=== PATIENT | male | born 1960 | race Caucasian/White ===

== ENCOUNTER 2020-02-06 06:59 | Outpatient (REF) | payer BC, OTHER, SELFPAY ==
[2020-02-06 08:41] LABS: Estimated Average Glucose 123 mg/dL; Hemoglobin A1c % 5.9 %
[2020-02-06 09:13] LABS: Ferritin 558 ng/mL (20-250)
== END 2020-02-06 07:00 | disposition home or self-care (01) ==
LOC: HO.LAB 06:59
PROVIDERS: PCP Nurse Practitioner Family; Visit Provider Nurse Practitioner Family
DX: R73.01 Impaired fasting glucose (principal); E83.119 Hemochromatosis, unspecified
CPT/HCPCS: 36415; 82728; 83036

== ENCOUNTER → 2020-03-02 07:38 | Outpatient (BNV) | payer BC, OTHER, SELFPAY | PROVIDERS: PCP Nurse Practitioner Family; Referring Provider Nurse Practitioner Family; Visit Provider Internal Medicine | DX: E83.119 Hemochromatosis, unspecified (principal) | CPT/HCPCS: 99213; 99214; 99441 ==

== ENCOUNTER → 2020-03-11 08:15 | Outpatient (REF) | payer BC, OTHER, SELFPAY ==
--- NOTE | 2020-03-11 08:23 | CA_ITS ---
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 Technically difficult study despite using definity contrast 2. Normal LV systolic function with mild LVH with grade 1 diastolic dysfunction 3. Normal cardiac valvular Doppler 4. Normal RV systolic pressure 5. No pericardial effusion Findings Procedure Information Contrast agent, definity, is being given per protocol without apparent complications. Left Ventricle Normal left ventricular size and systolic function. There is mildly increased left ventricular wall thickness. The visually estimated ejection fraction is between 60-65%. Spectral Doppler is indicative of an impaired relaxation filling pattern. E/E prime ratio is <8, consistent with normal filling pressures. Evidence suggests grade I (mild) diastolic dysfunction. Right Ventricle The right ventricle was not well visualized. Atria The left atrium is likely dilated. Interatrial shunt cannot be excluded. The right atrium was not well visualized. Aortic Valve The aortic valve was not well visualized. There is no aortic valve stenosis. There is no aortic valve regurgitation. Mitral Valve The mitral valve was not well visualized. There is trace mitral valve regurgitation. There is no mitral valve stenosis. Pulmonic Valve The pulmonic valve was not well visualized. Tricuspid Valve The tricuspid valve was not well visualized. There is trace tricuspid valve regurgitation. The right ventricular systolic pressure is normal. Normal right atrial pressure. Great Vessels All visible segments of the aorta are normal in size. The pulmonary artery was not well visualized. Venous The inferior vena cava was not well visualized. Pericardium/Pleural The pericardium was not well visualized. Measurements 2D Linear Measurements IVSd: 1.34 0.6-0.9/0.6-1.0 cm LVIDd: 4.54 3.9-5.3/4.2-5.9 cm LVIDd Index: 1.87 2.4-3.2/2.2-3.1 cm/m2 LVIDs: 2.87 2.0-3.6 cm LVPWd: 1.32 0.7-1.1 cm Ao Root: 3.40 2.1-3.5 cm LA Diam: 4.20 2.7-3.8/3.0-4.0 cm LAIDs Index: 1.73 1.5-2.3 cm/m2 LV Mass: 290.86 67-162/88-224 g LV Mass Index: 119.69 43-95/49-115 g/m2 LVOT Diam: 2.30 3.0+(-)1.3 cm Mitral Valve MV Pk E: 0.69 MV PK A: 0.78 MV Decel Time: 211.00 E/A: 0.90 E'Lateral: 15.70 E'Medial: 6.64 E/E' Med: 10.40 E/E' Lat: 4.40 PHT: 62.00 MVA PHT: 3.55 Decel [place]: 3.27 Aortic Valve AoV Pk Yousuf: 1.58 AoV Mn Yousuf: 1.12 AoV VTI: 0.39 AoV Pk Grad: 10.00 Aov Mn Grad: 6.00 MAXX Cont.VTI: 2.91 LVOT LVOT Pk Yousuf: 1.26 LVOT Mn Yousuf: 0.78 LVOT VTI: 0.27 LVOT Pk Grad: 6.00 LVOT Mn Grad: 3.00 LVOT Diam: 2.30 LVOT Area: 4.15 Diastolic Function MV Pk E: 0.69 MV Pk A: 0.78 E/A: 0.90 E'Medial: 6.64 E/E' Med: 10.40 E' Laterial: 15.70 E/E' Lat: 4.40 Tricuspid Valve TR Pk Yousuf: 1.56 TR Pk Grad: 10.00 RA Press: 3.00 RVSP: 13.00 Great Vessels Aorta Ao Root-2D: 3.40 2.0-3.7 cm Ao Asc: 3.40 2.1-3.4 cm Pulmonary Valve PV Pk Yousuf: 0.98 Peak PV Grad: 4.00 Updated in Other Vendor System with Status of Final Fredi Hart MD electronically signed on 03/11/2020 1:46:08 PM with status of Final
== END ==
LOC: HO.CARD 08:15
PROVIDERS: PCP Nurse Practitioner Family; Visit Provider Nurse Practitioner Family
DX: R22.43 Localized swelling, mass and lump, lower limb, bilateral (principal)
CPT/HCPCS: 93306; Q9957

== ENCOUNTER 2020-05-30 13:49 | Outpatient (REF) | payer BC, OTHER, SELFPAY ==
[2020-05-30 14:06] LABS: MANUAL DIFF FLAG NO
[2020-05-30 14:10] LABS: Basophils Absolute Auto 0.1 X10*3/uL (0.0-0.2); Basophils Percent Auto 0.6 % (0-2); Eosinophils Absolute Auto 0.4 X10*3/uL (0.0-0.4); Hematocrit 41.1 % (42-52); Hemoglobin 13.7 g/dl (14.0-18.0); Imm Gran Abs Auto 0.03 X10*3/uL (0.00-0.03); Imm Gran Pct Auto 0.3 % (0.0-0.4); Lymphocytes Absolute Auto 2.9 X10*3/uL (1.2-4.9); Lymphocytes Percent Auto 28.9 % (20-40); Mean Corpuscular HGB Conc 33.3 g/dl (31.0-36.0); Mean Platelet Volume 10.5 fL (9.4-12.4); Monocytes Percent Auto 9.8 % (2-11); Neutrophils Absolute Auto 5.7 X10*3/uL (2.0-8.3); Neutrophils Percent Auto 56.4 % (45-73); Platelet Count 203 X10*3/uL (160-400); Red Blood Count 4.28 X10*6/uL (4.60-5.80); Red Cell Distribution Width 12.5 % (11.0-16.0); White Blood Count 10.1 X10*3/uL (4.8-10.8)
[2020-05-30 14:37] LABS: Anion Gap 13 (12-20); Blood Urea Nitrogen 19 mg/dL (9-16); Calcium 9.5 mg/dL (8.4-10.2); Carbon Dioxide 29 mmol/L (22-29); Chloride 105 mmol/L (96-108); Estimated Glomerular Filt Rate > 60; Glucose Random 114 mg/dL (60-115); Iron 130 mcg/dL (45-160); Percent Iron Saturation 45 % (15-50); Potassium 4.5 mmol/l (3.3-5.1); Sodium 142 mmol/L (135-145); Total Iron Binding Capacity 289 mcg/dL (228-428); Unsaturated Iron Binding 159 ug/dL
[2020-05-30 14:59] LABS: Ferritin 561 ng/mL (20-250); TSH reflex Free T4 1.46 mIU/mL (0.32-4.0)
== END 2020-05-30 13:50 | disposition home or self-care (01) ==
LOC: HO.LAB 13:49
PROVIDERS: Absent Provider Nurse Practitioner Family; PCP Nurse Practitioner Family; Visit Provider Internal Medicine
DX: R22.43 Localized swelling, mass and lump, lower limb, bilateral (principal); E83.119 Hemochromatosis, unspecified
CPT/HCPCS: 36415; 80048; 82728; 83540; 84443; 85025

== ENCOUNTER 2020-09-03 07:02 | Outpatient (REF) | payer BC, OTHER, SELFPAY ==
[2020-09-03 07:31] LABS: MANUAL DIFF FLAG NO
[2020-09-03 07:43] LABS: Basophils Percent Auto 0.5 % (0-2); Eosinophils Absolute Auto 0.3 X10*3/uL (0.0-0.4); Eosinophils Percent Auto 3.8 % (0-4); Hematocrit 41.2 % (42-52); Hemoglobin 13.6 g/dl (14.0-18.0); Imm Gran Abs Auto 0.02 X10*3/uL (0.00-0.03); Imm Gran Pct Auto 0.2 % (0.0-0.4); Immature Retic Fraction 12.7 % (2.3-13.4); Lymphocytes Absolute Auto 2.2 X10*3/uL (1.2-4.9); Lymphocytes Percent Auto 27.2 % (20-40); Mean Corpuscular Hemoglobin 31.8 pg (27.0-33.0); Mean Corpuscular Volume 96.3 fL (80-98); Mean Platelet Volume 10.6 fL (9.4-12.4); Monocytes Absolute Auto 0.8 X10*3/uL (0.1-1.2); Monocytes Percent Auto 9.3 % (2-11); Neutrophils Absolute Auto 4.8 X10*3/uL (2.0-8.3); Platelet Count 201 X10*3/uL (160-400); Red Blood Count 4.28 X10*6/uL (4.60-5.80); Red Cell Distribution Width 12.9 % (11.0-16.0); Retic HGB Equivalent 36.6 pg (30.0-35.0); Reticulocytes Absolute 0.085 X10*6/uL (0.026-0.095); White Blood Count 8.2 X10*3/uL (4.8-10.8)
[2020-09-03 07:56] LABS: Alanine Aminotransferase 36 U/L (0-40); Albumin Level 4.3 g/dL (3.5-5.0); Alkaline Phosphatase 68 U/L (39-117); Anion Gap 15 (12-20); Aspartate Amino Transferase 34 U/L (5-37); Bilirubin Total 0.6 mg/dL (0.0-1.0); Blood Urea Nitrogen 18 mg/dL (9-16); Calcium 9.4 mg/dL (8.4-10.2); Carbon Dioxide 26 mmol/L (22-29); Chloride 105 mmol/L (96-108); Estimated Glomerular Filt Rate > 60; Glucose Random 134 mg/dL (60-115); Iron 108 mcg/dL (45-160); Percent Iron Saturation 39 % (15-50); Potassium 4.7 mmol/L (3.3-5.1); Sodium 141 mmol/L (135-145); Total Iron Binding Capacity 280 mcg/dL (228-428); Unsaturated Iron Binding 172 ug/dL
[2020-09-05 04:12] LABS: Folate > 20.0 ng/mL (> or = 4.0); Vitamin B12 722 pg/mL (200-900)
[2020-09-05 13:37] LABS: IgA 253 mg/dL (47-310); IgG 880 mg/dL (600-1640); IgM 37 mg/dL (50-300)
[2020-09-05 15:12] LABS: Prot Elec - Albumin 4.2 g/dL (3.8-4.8); Prot Elec - Alpha1 0.3 g/dL (0.2-0.3); Prot Elec - Alpha2 0.9 g/dL (0.5-0.9); Prot Elec - Beta 1 0.4 g/dL (0.4-0.6); Prot Elec - Beta 2 0.4 g/dL (0.2-0.5); Prot Elec - Gamma 0.8 g/dL (0.8-1.7)
[2020-09-06 02:02] LABS: Lyme Abs Screen <0.90 index
== END 2020-09-03 07:03 | disposition home or self-care (01) ==
LOC: HO.LAB 07:02
PROVIDERS: Absent Provider Nurse Practitioner Family; PCP Nurse Practitioner Family; Visit Provider Internal Medicine
DX: E83.119 Hemochromatosis, unspecified (principal); M79.10 Myalgia, unspecified site
CPT/HCPCS: 36415; 80053; 82550; 82607; 82746; 82784; 83540; 84155; 84165; 85025; 85045; 86334; 86617; 86618

== ENCOUNTER 2020-10-31 09:44 | Outpatient (REF) | payer BC, OTHER, SELFPAY ==
[2020-10-31 11:14] LABS: Anion Gap 10 (12-20); Blood Urea Nitrogen 19 mg/dL (9-16); Calcium 9.9 mg/dL (8.4-10.2); Carbon Dioxide 30 mmol/L (22-29); Chloride 105 mmol/L (96-108); Estimated Glomerular Filt Rate > 60; Glucose Random 110 mg/dL (60-115); Potassium 4.5 mmol/L (3.3-5.1); Sodium 140 mmol/L (135-145)
[2020-10-31 11:37] LABS: T4 Thyroxine 6.2 ug/dL (4.5-12.0); Thyroid Stimulating Hormone 1.27 uIU/mL (0.32-4.0)
[2020-10-31 12:12] LABS: Erythrocyte Sedimentation Rate 8 MM/HR (0-15)
[2020-11-01 21:02] LABS: Lyme Abs Screen <0.90 index
[2020-11-04 22:36] LABS: Acetylcholine Receptor Binding <0.30 nmol/L
[2020-11-05 01:02] LABS: Aldolase 5.6 U/L (<=8.1)
[2020-11-05 23:36] LABS: Acetylcholine Recep Modulating <1
== END 2020-10-31 09:45 | disposition home or self-care (01) ==
LOC: HO.LAB 09:44
PROVIDERS: PCP Nurse Practitioner Family; Visit Provider Psychiatry & Neurology Neurology
DX: G72.9 Myopathy, unspecified (principal)
CPT/HCPCS: 36415; 80048; 82085; 82550; 83519; 84436; 84443; 85652; 86617; 86618

== ENCOUNTER 2022-05-31 06:07 | Outpatient (REF) | payer OTHER, SELFPAY ==
--- NOTE | ~2022-05-31 | XR_ITS ---
EXAMINATION: XR CHEST CLINICAL INFORMATION: Shortness of breath COMPARISON: 05/13/2017 TECHNIQUE: 2 views of the chest were obtained. FINDINGS: Lung volumes are low. Mild bronchial wall thickening. No consolidation. No edema or effusion. No pneumothorax. The cardiomediastinal silhouette is within normal limits. No acute osseous abnormality. XR/XR chest 2V IMPRESSION: No consolidation. Bronchial wall thickening can be seen with a small airways process such as asthma or atypical/viral infection.
[2022-05-31 06:14] LABS: MANUAL DIFF FLAG NO
[2022-05-31 07:32] LABS: Basophils Absolute Auto 0.1 X10*3/uL (0.0-0.2); Basophils Percent Auto 0.7 % (0-2); Eosinophils Absolute Auto 0.7 X10*3/uL (0.0-0.4); Eosinophils Percent Auto 6.8 % (0-4); Hematocrit 42.6 % (42.0-52.0); Hemoglobin 14.3 g/dl (14.0-18.0); Imm Gran Abs Auto 0.03 X10*3/uL (0.00-0.03); Imm Gran Pct Auto 0.3 % (0.0-0.4); Lymphocytes Absolute Auto 3.7 X10*3/uL (1.2-4.9); Lymphocytes Percent Auto 35.2 % (20-40); Mean Corpuscular HGB Conc 33.6 g/dl (31.0-36.0); Mean Corpuscular Hemoglobin 32.6 pg (27.0-33.0); Monocytes Absolute Auto 1.1 X10*3/uL (0.1-1.2); Monocytes Percent Auto 10.7 % (2-11); Neutrophils Absolute Auto 4.9 x10*3/uL (2.0-8.3); Neutrophils Percent Auto 46.3 % (45-73); Platelet Count 225 X10*3/uL (160-400); Red Blood Count 4.39 X10*6/uL (4.60-5.80); White Blood Count 10.6 X10*3/uL (4.8-10.8)
[2022-05-31 08:05] LABS: Alanine Aminotransferase 36 U/L (0-40); Albumin Level 4.3 g/dL (3.5-5.0); Alkaline Phosphatase 58 U/L (39-117); Anion Gap 16 (12-20); Aspartate Amino Transferase 31 U/L (5-37); Bilirubin Total 0.5 mg/dL (0.0-1.0); Blood Urea Nitrogen 21 mg/dL (9-16); Calcium 9.5 mg/dL (8.4-10.2); Carbon Dioxide 25 mmol/L (22-29); Chloride 105 mmol/L (96-108); Cholesterol 178 mg/dL; Estimated Glomerular Filt Rate > 60; Glucose Fasting 146 mg/dL (60-99); HDL Cholesterol 60 mg/dL; LDL Cholesterol Calculated 106 mg/dl; Potassium 4.2 mmol/L (3.3-5.1); Sodium 142 mmol/L (135-145); Total Protein 6.9 g/dL (6.5-8.0); Triglycerides 64 mg/dL
[2022-05-31 08:12] LABS: Prostate Specific Antigen Scr 0.26 ng/mL (<0.05-4.0); TSH reflex Free T4 1.55 uIU/mL (0.32-4.0)
[2022-05-31 08:19] LABS: Appearance Urine Clear; Color Urine Dark Yellow; Glucose Urine UA Negative (Negative); Leukocyte Esterase Urine Negative (Negative); Nitrite Urine Negative (Negative); PH 5.5 (5.0-9.0); Specific Gravity - Urine >= 1.030 (1.005-1.025); UMIC TRIGGER UACC YES; Urine Blood Negative (Negative); Urine Ketones Trace mg/dL (Negative); Urine Protein 30 (1+) mg/dL (Neg-Trace)
[2022-05-31 08:22] LABS: Bacteria Urine None Seen (None Seen); Hyaline Casts Urine 0-2 /LPF (0-2); RBC Urine 0-2 /HPF (0-2); Squamous Epithelial Cell Urine 0-2 /HPF (0-2); WBC Urine 0-5 /HPF (0-5)
[2022-05-31 08:29] LABS: Folate 15.3 ng/mL (> or = 4.0); Vitamin B12 697 pg/mL (200-900)
--- NOTE | 2022-05-31 16:40 | PFT_ITS ---
INDICATION: Shortness of breath. SPIROMETRY: FEV1 to FVC 77% with an FEV1 of 2.78 L, which is 84% predicted and FVC of 3.6 L which is 82% predicted. No significant response to bronchodilators noted. Maximum voluntary ventilation 65% predicted. Of note the FEF 25-75 decreased to 74% predicted. LUNG VOLUMES: Total lung capacity 82% predicted with an expiratory residual volume of 10% predicted. DIFFUSION CAPACITY: DLCO of 93% predicted. COMPARISONS: None. INTERPRETATION: No obstructive nor restrictive ventilatory defects identified. No significant response to bronchodilators noted. There is some evidence of small airway disease which could be secondary to underlying asthma or his underlying body habitus. The patient also has a moderate decrease in the maximum voluntary ventilation secondary to likely deconditioning. Lung volumes are normal except for low normal total lung capacity and a significantly decreased expiratory reserve volume secondary to the elevated BMI. Diffusion capacity is within normal limits. Clinical correlation warranted. MD JAIDEN Vela/MARSHA / [id number]
== END 2022-05-31 06:08 | disposition home or self-care (01) ==
LOC: HO.RESP 06:07
PROVIDERS: PCP Nurse Practitioner Family; Visit Provider Nurse Practitioner Family
DX: Z00.00 Encounter for general adult medical examination without abnormal findings (principal); Z12.5 Encounter for screening for malignant neoplasm of prostate; E53.8 Deficiency of other specified B group vitamins; R06.02 Shortness of breath
CPT/HCPCS: 36415; 71046; 80053; 80061; 81001; 82607; 82746; 84153; 84443; 85025; 94060; 94727; 94729

== ENCOUNTER 2023-05-17 06:02 | Outpatient (REF) | payer OTHER, SELFPAY ==
[2023-05-17 11:31] LABS: MANUAL DIFF FLAG NO
[2023-05-17 11:38] LABS: Appearance Urine Clear; Basophils Absolute Auto 0.1 X10*3/uL (0.0-0.2); Basophils Percent Auto 0.5 % (0-2); Color Urine Yellow; Eosinophils Absolute Auto 0.5 X10*3/uL (0.0-0.4); Eosinophils Percent Auto 4.3 % (0-4); Glucose Urine UA Negative (Negative); Hematocrit 42.7 % (42.0-52.0); Hemoglobin 14.3 g/dl (14.0-18.0); Imm Gran Abs Auto 0.03 X10*3/uL (0.00-0.03); Imm Gran Pct Auto 0.3 % (0.0-0.4); Leukocyte Esterase Urine Negative (Negative); Lymphocytes Absolute Auto 3.5 X10*3/uL (1.2-4.9); Mean Corpuscular HGB Conc 33.5 g/dl (31.0-36.0); Mean Corpuscular Volume 98.6 fL (80.0-98.0); Mean Platelet Volume 11.1 fL (9.4-12.4); Monocytes Absolute Auto 0.9 X10*3/uL (0.1-1.2); Monocytes Percent Auto 8.5 % (2-11); Neutrophils Percent Auto 54.4 % (45-73); Nitrite Urine Negative (Negative); PH 5.5 (5.0-9.0); Platelet Count 217 X10*3/uL (160-400); Red Blood Count 4.33 X10*6/uL (4.60-5.80); Specific Gravity - Urine 1.025 (1.005-1.025); Urine Blood Negative (Negative); Urine Ketones Negative (Negative); Urine Protein Negative (Neg-Trace); White Blood Count 10.9 X10*3/uL (4.8-10.8)
[2023-05-17 12:36] LABS: Alanine Aminotransferase 32 U/L (0-40); Alkaline Phosphatase 48 U/L (39-117); Anion Gap 13 (12-20); Aspartate Amino Transferase 27 U/L (5-37); Bilirubin Total 0.4 mg/dL (0.0-1.0); Blood Urea Nitrogen 21 mg/dL (9-16); Calcium 9.3 mg/dL (8.4-10.2); Carbon Dioxide 26 mmol/L (22-29); Chloride 105 mmol/L (96-108); Cholesterol 176 mg/dL (<200); Estimated Glomerular Filt Rate > 60; Glucose Fasting 155 mg/dL (60-99); HDL Cholesterol 57 mg/dL (>40); Iron 123 mcg/dL (45-160); LDL Cholesterol Calculated 104 mg/dL (<100); Percent Iron Saturation 48 % (15-50); Sodium 140 mmol/L (135-145); Total Iron Binding Capacity 256 mcg/dL (228-428); Total Protein 6.9 g/dL (6.5-8.0); Triglycerides 77 mg/dL (<150); Unsaturated Iron Binding 133 ug/dL
[2023-05-17 12:40] LABS: Ferritin 829 ng/mL (20-250); TSH reflex Free T4 1.77 uIU/mL (0.32-4.0)
[2023-05-17 12:47] LABS: Folate 11.8 ng/mL (> or = 4.0); Prostate Specific Antigen Scr 0.29 ng/mL (<0.05-4.0); Vitamin B12 717 pg/mL (200-900)
== END 2023-05-17 06:03 | disposition home or self-care (01) ==
LOC: HO.HMGCLDS 06:02
PROVIDERS: PCP Nurse Practitioner Family; Visit Provider Nurse Practitioner Family
DX: Z00.00 Encounter for general adult medical examination without abnormal findings (principal); R97.20 Elevated prostate specific antigen [PSA]; E53.8 Deficiency of other specified B group vitamins; E83.119 Hemochromatosis, unspecified; Z12.5 Encounter for screening for malignant neoplasm of prostate
CPT/HCPCS: 36415; 80053; 80061; 81003; 82607; 82728; 82746; 83540; 84153; 84443; 85025

== ENCOUNTER 2023-05-20 07:21 | Outpatient (AMB) | payer OTHER, SELFPAY ==
--- NOTE | 2023-05-20 07:29 | A.OFFPC_ITS ---
Vital Signs 05/20/23 07:33 Height 5 ft 8 in Weight 322 lb BMI 49.0 BP 130/90 H Blood Pressure Location Rt brachial Position Sitting Pulse 74 Pulse Source Pulse Oximeter Pulse Oximetry (%) 98 Oxygen Delivery Method Room Air Intake Visit Reasons: PE Intake Note: Patient here for physical exam. no new issues or concerns. Accompanied by: Self / Same As Patient Allergies No Known Allergies Allergy (Verified 05/20/23 07:33) Medication List - Last Reconciled 05/20/23 by MARK Rodriguez atorvastatin 20 mg PO BEDTIME cyanocobalamin (vitamin B-12) 500 mcg PO DAILY lisinopril 2.5 mg PO DAILY magnesium oxide 400 mg PO BID metformin ER 500 mg PO DAILY metoprolol tartrate 12.5 mg (1/2 x 25 mg) PO BID omeprazole 40 mg PO DAILY sildenafil (Viagra) 100 mg PO DAILY PRN Tobacco use date assessed: 05/20/23 Dental Screening Dental Screen Date: 05/20/23 Did you have a dental visit in the last 12 months?: Yes Did you have a dental problem in the last 6 months where you did not have access to dental care?: No Was dental information given to patient?: Patient has dentist HPI PE HPI Details Pt is here for a PE. Labs were already performed. Colon screen is up to date. PSA is up to date. Denies dribbling with urination, weak stream, and frequent nocturia. Pt is a newly diagnosed diabetic. A1C in office today is 6.9. Due for microalbumin, will order. Denies polydipsia and neuropathy, does report some polyuria. Pt denies any signs and symptoms of hypoglycemia and does know how to correct it. Will start metformin ER 500mg. Will send meter and supplies. Will also refer to nurse navigator. Will start lisinopril 2.5mg and atorvastatin 20mg. Pt was seeing hematology due to hemochromatosis, though he has not been seen since [address]. [address] referral. Pt c/o wheezing. He reports that this happens at all times of day. Pt has not tried any inhalers for this. He has PFT testing in May of 2022 which showed no obstructive nor restrictive ventilatory defects identified. No significant response to bronchodilators noted. There is some evidence of small airway disease which could be secondary to underlying asthma or his underlying body habitus. The patient also has a moderate decrease in the maximum voluntary ventilation secondary to likely deconditioning. Lung volumes are normal except for low normal total lung capacity and a significantly decreased expiratory reserve volume secondary to the elevated BMI. Diffusion capacity is within normal limits. Will send ventolin and symbicort. Will also order chest XR. Leukocytosis noted, will repeat CBC. EKG shows new onset afib/a-flutter. Pt reports feeling some intermittent flutters but reports these are infrequent. Will start eliquis. Will also order repeat echo and holter and refer to cardiology. Pt is completely asymptomatic. Pt is already on a beta-doris. Will also order sleep study. Denies CP, dizziness, blurred vision, increase in SOB, or BLOOD PFSH Medical History Arthralgia Diverticulitis large intestine w/o perforation or abscess w/o bleeding Elevated ferritin Hemochromatosis HTN (hypertension) Localized swelling of both lower legs Morbid obesity Myalgia Polyarthralgia Surgical History History of shoulder surgery History of resection of terminal ileum Family History Father Substance use disorder Mother Breast cancer Substance use disorder Brother Substance use disorder Social History Housing: House Are you a primary managed care liaison to a significant other at home: No Alcohol intake: former Patient Tobacco Use Status: Never used Tobacco e-Cigarette/Vaping Use: Never Used Second Hand Smoke Exposure: No service: No Current occupational status: employed Current occupation: Works in [employer] Current occupational exposures/hazards: Yes Cognitive needs: No Hearing needs: No Vision needs: No Questionnaire PHQ-9 Over the last 2 weeks, how often have you been bothered by any of the following problems? 1. Little interest or pleasure in doing things: not at all 2. Feeling down, depressed, or hopeless: not at all 3. Trouble falling or staying asleep, or sleeping too much: not at all 4. Feeling tired or having little energy: nearly every day 5. Poor appetite or overeating: nearly every day 6. Feeling bad about yourself - or that you are a failure or have let yourself or your family down: not at all 7. Trouble concentrating on things, such as reading the newspaper or watching television: not at all 8. Moving or speaking so slowly that other people could have noticed. Or the opposite - being so fidgety or restless that you have been moving around a lot more than usual: not at all 9. Thoughts that you would be better off or of hurting yourself in some way: not at all Total score: 6 Depression Screening Interpretation: Negative Depression Screening Done: Yes 33263 - PHQ-9 Billing: Yes Source: Developed by Drs. Brennon Rizvi, Cristina Albrecht, Qasim Westfall and colleagues, with an educational yolanda from [employer]. Thrive Questionnaire Date Thrive assessed: 05/20/23 I am a: Patient What is your living situation today?: I have a steady place to live Within the past 12 months, did the food you bought not last and you didn't have the money to get more?: Never true Within the past 12 months, did you worry whether your food would run out before you got money to buy more?: Never true Do you have trouble paying for medicines?: No Do you have trouble getting transportation to medical appointments?: No Do you have trouble paying your heating and electricity bill?: No Do you have trouble taking care of your child, family member or friend?: No Do you have trouble with day-to-day activities such as bathing, preparing meals, shopping, managing finances, etc.?: No Are you currently unemployed and looking for a job?: No Are you interested in more education?: No AUDIT C Alcohol Use Questionnaire (AUDIT-C) 1. How often do you have a drink containing alcohol?: Never 3. How often do you have six or more drinks on one occasion?: Never Total Score: 0 Score Reviewed/Action Taken: No ZEHRA-7 AMB Questionnaire ZEHRA-7 Date ZEHRA - 7 assessed: 05/20/23 Feeling nervous, anxious, or on edge: 0 = Not at all Not being able to stop or control worryin = Not at all Worrying too much about different things: 0 = Not at all Trouble relaxin = Not at all Being so restless that it is hard to sit still: 0 = Not at all Becoming easily annoyed or irritable: 1 = Several days Feeling afraid as if something awful might happen: 0 = Not at all Total ZEHRA-7 score (0-4 normal; 5-9 mild; 10-14 moderate; 15-21 severe): 1 Source: Developed by Drs. Brennon Rizvi, Cristina Albrecht, Qasim Westfall and colleagues, with an educational yolanda from [employer]. ZEHRA-7 Assessment Billing ZEHRA-7 Assessment Tool: ZEHRA-7 Assessment 82411 Review of Systems Const Denies chills and Denies fever(s) Eyes Denies blurry vision ENT Denies vertigo, Denies dizziness and Denies sore throat Card Denies chest pain at rest, Denies chest pain with activity, Denies diaphoresis, Denies dyspnea and Denies dyspnea on exertion Resp Denies cough, Denies dyspnea, Denies dyspnea on exertion and Denies wheezing GI Denies abdominal pain, Denies melena, Denies hematochezia, Denies constipation, Denies diarrhea and Denies loose stools Denies hematuria Musc Denies numbness and Denies tingling Skin/Breast Denies lesions Neuro Denies vertigo, Denies dizziness, Denies numbness and Denies tingling Psych Denies anxiety, Denies depression, Denies homicidal ideation, Denies suicidal ideation and Denies other (substance abuse) Aller/Immun Denies wheezing Physical exam (Primary Care) Vital Signs: Last Vital Signs Pulse 74 05/20/23 07:33 BP 130/90 H 05/20/23 07:33 Pulse Ox 98 05/20/23 07:33 Oxygen Delivery Method Room Air 05/20/23 07:33 BMI result Body Mass Index 49.0 Tobacco/Smoking Status: Tobacco use Status Tobacco use date assessed 05/20/23 05/20/23 07:36 Patient Tobacco Use Status Never used Tobacco 05/20/23 07:29 e-Cigarette/Vaping Use Never Used 05/20/23 07:29 Depression Screening Interpretation: Negative Thrive Assessment: Date of Thrive Assessment Date Thrive assessed 05/15/22 05/20/23 07:29 Const General: cooperative Nutritional Appearance: obese morbidly obese Orientation/consciousness: patient oriented x3 [facility] Head: Yes normal to inspection, Yes normocephalic and Yes atraumatic Ears: TM's normal bilaterally Eyes General: appearance normal, both eyes and all related structures Alignment and Position: alignment normal and position normal Neck Neck: Yes normal visual inspection and Yes no lymphadenopathy Thyroid: Thyroid normal Resp Other: lungs with faint wheezing throughout Effort & Inspection: normal respiratory effort Cardio Other: difficult to auscultate due to body habitus Rhythm: abnormal rhythm irregularly irregular GI Palpation (GI): Soft to palpation and nontender Auscultation: normal bowel sounds Male General Exam: Yes normal external exam Penis: normal penis Scrotum: scrotum normal, testes descended bilaterally and no inguinal hernias Testes: no testicular mass Skin Rashes: no rashes Neuro General: patient oriented x3, moves all extremities, no focal motor deficits and deep tendon reflexes 2+ bilaterally Romberg Test: Negative Extrem Other: right foot + sensation with use of monofilament, slight lack of sensation to plantar aspect of left foot, feet intact Right lower extremity: edema Details: pitting and 1+ Left lower extremity: edema Details: pitting and 1+ Psych Appearance: grossly normal Mental Status: mental status grossly normal Speech and movement: Normal speech and movement present Affect: normal affect Attitude: cooperative Thought process: Normal thought process present Thought content: Normal thought content present Insight: Good insight present (Psych) Judgement: Good judgement present (Psych) Results AMB Hemoglobin A1c AMB Hemoglobin A1c 6.9 % Last Edit by RAY Ga on 05/20/23 07 :55 Results Reviewed Results Reviewed: Laboratory Last Values Hgb A1c (Clinic) 6.9 % (4.0-6.0) H 05/20/23 07:54 Assessment and Plan Assessment & Plan (1) Diabetes: Code(s): E11.9 - Type 2 diabetes mellitus without complications Plan: Microalbumin ordered, starting metformin, lisinopril, and atorvastatin, sending meter and supplies (2) Leukocytosis: Code(s): D72.829 - Elevated white blood cell count, unspecified Plan: CBC ordered (3) Hemochromatosis: Code(s): E83.119 - Hemochromatosis, unspecified Qualifiers: Hemochromatosis type: unspecified Qualified Code(s): E83.119 - Hemochromatosis, unspecified Plan: Referred back to hematology, elevated ferritin (4) Wheezing: Code(s): R06.2 - Wheezing Plan: Chest XR ordered, ventolin and symbicort sent (5) New onset a-fib: Code(s): I48.91 - Unspecified atrial fibrillation Plan: Starting eliquis, echo ordered, referred to cardiology, sleep study ordered (6) Morbid obesity: Code(s): E66.01 - Morbid (severe) obesity due to excess calories (7) Encounter for routine adult physical exam with abnormal findings: Code(s): Z00.01 - Encounter for general adult medical examination with abnormal findings (8) Atrial flutter: Code(s): I48.92 - Unspecified atrial flutter Plan The patient agreed to the use of a medical doctor md/medical director for this encounter. Scribed for JAVIER Rey by Leilani Jha medical doctor md/medical director, on 05/20/2023 at 07:40 EST. Orders: Orders Microalbumin, Random (w Creat) Today E11.9 - Type 2 diabetes mellitus without complications XR chest 2V Today R06.2 - Wheezing AMB Hemoglobin A1c Today E11.9 - Type 2 diabetes mellitus without complications Complete Blood Count Auto Diff Today D72.829 - Elevated white blood cell count, unspecified CA echo transthoracic complete Today I48.91 - Unspecified atrial fibrillation ECG 3 day holter monitor Today I48.91 - Unspecified atrial fibrillation, I48.92 - Unspecified atrial flutter Referrals Hematology & Oncology Referral E83.119 - Hemochromatosis, unspecified Sleep Medicine Referral E66.01 - Morbid (severe) obesity due to excess calories, I48.91 - Unspecified atrial fibrillation Nurse Navigator Referral E11.9 - Type 2 diabetes mellitus without complications Cardiology Referral I48.91 - Unspecified atrial fibrillation, I48.92 - Unspecif ied atrial flutter Medications: New lisinopril 2.5 mg PO DAILY 90 tabs 0RF atorvastatin 20 mg PO BEDTIME 90 tabs 0RF metformin ER 500 mg PO DAILY 90 tabs 3RF apixaban (Eliquis) 5 mg PO BID 30 days 60 tabs 3RF budesonide-formoterol 80-4.5 mcg/actuation (Symbicort) rinse mouth out after each use 1 puff inhalation BID 10.2 grams 1RF albuterol sulfate 90 mcg/actuation (Ventolin HFA) 2 puffs inhalation Q6H PRN 8.5 grams 2RF shortness of breath or wheezing Coding Level of Care Code Est Pt Prev Care 40-64y(18828) Diagnoses Diabetes E11.9 Leukocytosis D72.829 Hemochromatosis, unspecified hemochromatosis type E83.119 Hemochromatosis type: unspecified Wheezing R06.2 New onset a-fib I48.91 Morbid obesity E66.01 Encounter for routine adult physical exam with abnormal findings Z00.01 Atrial flutter I48.92 Additional Codes ZEHRA-7 Assessment Billing - ZEHRA-7 Assessment Tool: ZEHRA-7 Assessment [id number] ([id number])
[2023-05-20 07:33] VITALS: BP 130/90; PULSE 74; O2SAT 98; BMI 49.0
== END 2023-05-20 09:02 | disposition home or self-care (01) ==
PROVIDERS: Visit Provider Nurse Practitioner Family
DX: Z00.01 Encounter for general adult medical examination with abnormal findings (principal); E11.9 Type 2 diabetes mellitus without complications; I48.91 Unspecified atrial fibrillation; E66.01 Morbid (severe) obesity due to excess calories; I48.92 Unspecified atrial flutter; Z68.42 Body mass index [BMI] 45.0-49.9, adult; R06.2 Wheezing; D72.829 Elevated white blood cell count, unspecified; E83.119 Hemochromatosis, unspecified
CPT/HCPCS: 83036; 99214; 99396

== ENCOUNTER 2023-05-20 08:24 | Outpatient (REF) | payer OTHER, SELFPAY ==
--- NOTE | ~2023-05-20 | XR_ITS ---
EXAMINATION: XR CHEST CLINICAL INFORMATION: Wheezing COMPARISON: Chest radiograph from 05/31/2022 TECHNIQUE: 2 views of the chest were obtained. FINDINGS: Bilateral low lung volumes. Stable elevation the right hemidiaphragm. Bronchial thickening which can be seen in setting of infectious/inflammatory etiology. Right basilar atelectasis. No pneumothorax. Trachea is midline. Cardiac mediastinal silhouette is not enlarged. No large pleural effusion. Degenerative changes of the thoracolumbar spine. Soft tissues are unremarkable. XR/XR chest 2V IMPRESSION: 1. Bilateral low lung volumes. 2. Stable elevation the right hemidiaphragm. 3. Bronchial thickening which can be seen in setting of infectious/inflammatory etiology. 4. Right basilar atelectasis.
[2023-05-20 10:55] LABS: MANUAL DIFF FLAG NO
[2023-05-20 11:09] LABS: Basophils Absolute Auto 0.1 X10*3/uL (0.0-0.2); Basophils Percent Auto 0.7 % (0-2); Eosinophils Absolute Auto 0.3 X10*3/uL (0.0-0.4); Eosinophils Percent Auto 3.7 % (0-4); Hematocrit 43.6 % (42.0-52.0); Hemoglobin 14.5 g/dl (14.0-18.0); Imm Gran Abs Auto 0.04 X10*3/uL (0.00-0.03); Imm Gran Pct Auto 0.4 % (0.0-0.4); Lymphocytes Absolute Auto 2.8 X10*3/uL (1.2-4.9); Lymphocytes Percent Auto 30.6 % (20-40); Mean Corpuscular HGB Conc 33.3 g/dl (31.0-36.0); Mean Corpuscular Hemoglobin 32.6 pg (27.0-33.0); Monocytes Absolute Auto 0.8 X10*3/uL (0.1-1.2); Monocytes Percent Auto 8.3 % (2-11); Neutrophils Absolute Auto 5.1 x10*3/uL (2.0-8.3); Neutrophils Percent Auto 56.3 % (45-73); Platelet Count 224 X10*3/uL (160-400); Red Blood Count 4.45 X10*6/uL (4.60-5.80)
[2023-05-20 11:32] LABS: Creatinine Urine 186.64 mg/dL; Microalbum/Creatinine Ratio Ur 34.2 ug/mg cr (<30)
== END 2023-05-20 08:25 | disposition home or self-care (01) ==
LOC: HO.HMGCX 08:24
PROVIDERS: PCP Nurse Practitioner Family; Visit Provider Nurse Practitioner Family
DX: R06.2 Wheezing (principal); D72.829 Elevated white blood cell count, unspecified; E11.9 Type 2 diabetes mellitus without complications
CPT/HCPCS: 36415; 71046; 82043; 82570; 85025

== ENCOUNTER 2023-06-04 13:36 | Inpatient (IN) | payer OTHER, SELFPAY ==
[2023-06-04] VITALS (9 sets, daily range): BP systolic 109–135; BP diastolic 66–94; PULSE 85–145; RESP 13–20; TEMP 36.4–36.8; O2SAT 94–96; BMI 47.1
--- NOTE | ~2023-06-04 | XR_ITS ---
EXAMINATION: XR CHEST CLINICAL INFORMATION: No onset atrial fibrillation, dyspnea COMPARISON: None available. TECHNIQUE: 2 views of the chest were obtained. FINDINGS: The lungs are well-expanded and clear. Heart size and pulmonary vascularity is normal. No gross bony abnormality seen. XR/XR chest 2V IMPRESSION: Unremarkable chest exam.
--- NOTE | 2023-06-04 13:38 | ECG_ITS ---
Test Reason : AFIB Blood Pressure : / mmHG Vent. Rate : 144 BPM Atrial Rate : 288 BPM P-R Int : 000 ms QRS Dur : 090 ms QT Int : 352 ms P-R-T Axes : 219 -06 221 degrees QTc Int : 545 ms Atrial flutter with 2:1 A-V conduction Nonspecific ST and T wave abnormality Abnormal ECG When compared with ECG of 21-NOV-2016 19:19, Atrial flutter has replaced Sinus rhythm Borderline criteria for Lateral infarct are no longer Present Criteria for Inferior infarct are no longer Present Nonspecific T wave abnormality now evident in Inferior leads Referred By: Generic ED Physician Electronically Signed By:ELIE PEREZ MD
--- NOTE | 2023-06-04 14:12 | ED.ARRPALP ---
HPI - Arrhythmia/Palpitations General Chief Complaint: Arrhythmia/Palpitations Stated Complaint: new a Fib Time Seen by Provider: 06/04/23 13:55 Source: patient Mode of arrival: wheelchair Limitations: no limitations History of Present Illness HPI narrative: 63-year-old male with history of diabetes mellitus, hypertension, hemochromatosis, newly diagnosed atrial flutter by PCP on 05/20/2023 who was at the hospital to get an echocardiogram when he was noted to be in atrial flutter with a rapid ventricular response of 150 therefore he was sent to the emergency department for evaluation. The patient had a routine follow-up visit with his PCP Dr. Yair Prajapati on 05/20/2023. The patient states that he had no symptoms and he was diagnosed with atrial flutter on EKG done in the office. Patient was started on Eliquis and was set up for an outpatient workup to include an echocardiogram today. The patient has had no significant symptoms. He states that he does have dyspnea on exertion but this is not new. He denied chest pain, lightheadedness, dizziness, palpitations, shortness of breath, nausea, vomiting, diaphoresis. He denied recent illness such as fever, chills, rhinorrhea, sore throat or cough. I did review the patient's blood work on 05/17/2023 which was prior to his office visit. Patient did have a high ferritin but he does have hematoma cytosis. His TSH was normal. Related Data Home Medications Medication Instructions Recorded Confirmed magnesium oxide 400 mg (241.3 mg 400 mg PO BID 02/06/20 06/04/23 magnesium) tablet sildenafil 100 mg tablet (Viagra) 100 mg PO DAILY PRN Sexual Activity 02/06/20 06/04/23 cyanocobalamin (vitamin B-12) 500 500 mcg PO DAILY 09/05/20 06/04/23 mcg tablet Previous Rx's Medication Instructions Recorded omeprazole 40 mg capsule,delayed 40 mg PO DAILY #90 caps 07/12/22 release metoprolol tartrate 25 mg tablet 12.5 mg (1/2 x 25 mg) PO BID #90 04/05/23 tabs FreeStyle Lite Meter #1 ea 05/20/23 (blood-glucose meter) FreeStyle Lite Strips (blood sugar #200 ea 05/20/23 diagnostic) albuterol sulfate 90 mcg/actuation 2 puff inhalation Q6H PRN 05/20/23 aerosol inhaler (Ventolin HFA) shortness of breath or wheezing #8.5 grams apixaban 5 mg tablet (Eliquis) 5 mg PO BID 30 days #60 tabs 05/20/23 atorvastatin 20 mg tablet 20 mg PO BEDTIME #90 tabs 05/20/23 doxycycline hyclate 100 mg tablet 100 mg PO BID 10 days #20 tabs 05/20/23 lancets 28 gauge (FreeStyle #200 ea 05/20/23 Lancets) lisinopril 2.5 mg tablet 2.5 mg PO DAILY #90 tabs 05/20/23 metformin 500 mg tablet,extended 500 mg PO DAILY #90 tabs 05/20/23 release 24 hr fluticasone furoate 100 1 inh inhalation DAILY #1 ea 05/29/23 mcg-vilanterol 25 mcg/dose inhalation powder (Breo Ellipta) Allergies Allergy/AdvReac Type Severity Reaction Status Date / Time No Known Allergies Allergy Verified 05/20/23 07:33 Review of Systems Review of Systems: Yes all other systems are reviewed and are negative [facility] Past Medical History [facility] Narrative: Social history: He denies tobacco, alcohol and drug use. Medical History Arthralgia Diverticulitis large intestine w/o perforation or abscess w/o bleeding Elevated ferritin Hemochromatosis HTN (hypertension) Localized swelling of both lower legs Morbid obesity Myalgia Polyarthralgia Surgical History History of shoulder surgery History of resection of terminal ileum Family History Family History Father Substance use disorder Mother Breast cancer Substance use disorder Brother Substance use disorder Social History Social History Housing: House Are you a primary daycare director to a significant other at home: No Alcohol intake: former Patient Tobacco Use Status: Never used Tobacco Smoked in Last 30 Days: No e-Cigarette/Vaping Use: Never Used Second Hand Smoke Exposure: No Use of substances other than those prescribed or required for medical reasons: No Advance Directives: Yes Advance Directives Information Provided: Yes Advance Directives on File: No service: No Current occupational status: employed Current occupation: Works in [employer] Current occupational exposures/hazards: Yes Cognitive needs: No Hearing needs: No Vision needs: No Physical Exam Vital Signs: Vital Signs: Last Vital Signs Temp 98.2 F 06/04/23 14:00 Pulse 143 H 06/04/23 15:27 Resp 15 06/04/23 15:27 BP 135/94 H 06/04/23 15:27 Pulse Ox 95 06/04/23 15:27 O2 Del Method Room Air 06/04/23 15:27 BMI result Body Mass Index 47.1 Vital signs were normal except for an elevated heart rate of 145 Exam: General: Awake, alert in no distress, elevated BMI 47.1 Head: Normocephalic, atraumatic EENT: PERRL, Lids normal, sclera normal, conjunctiva normal, nose normal , ears normal, throat without erythema or exudates Neck: Supple, no adenopathy Lung: breath sounds symmetric, no wheezing, rales or rhonchi Chest: symmetric movement, nontender Heart: Tachycardia with regular rate, normal S1, S2 no murmurs or rubs Abdomen: soft, non-tender, nondistended, normal bowel sounds Back: no vertebral tenderness, no CVAT Extremities: no deformities, moves all extremities symmetrically Neuro: Awake, alert, oriented, normal speech, cranial nerves intact, moves all extremities symmetrically Psych: Pleasant, cooperative Medications Administered Generic Name Dose Route Start Last Admin Trade Name Freq PRN Reason Stop Dose Admin Sodium Chloride 1,000 mls @ 125 mls/hr 06/04/23 14:06 06/04/23 15:31 Ns IV 06/04/23 22:05 125 mls/hr .Q8H STA Administration Discontinued Medications Generic Name Dose Route Start Last Admin Trade Name Freq PRN Reason Stop Dose Admin Diltiazem HCl 25 mg 06/04/23 14:06 06/04/23 15:28 Diltiazem Hcl 50 Mg/10 Ml Vial IVPUSH 06/04/23 14:07 25 mg STAT STA Administration Medical Decision Making Medical Decision Making MDM Narrative: 63-year-old male with history of diabetes mellitus, hypertension, hemochromatosis, newly diagnosed atrial flutter by PCP on 05/20/2023 who was at the hospital to get an echocardiogram when he was noted to be in atrial flutter with a rapid ventricular response of 150 therefore he was sent to the emergency department for evaluation. The patient states that he did not start anticoagulation since Eliquis was not covered by his insurance. The patient was asymptomatic. Exam did reveal rapid heart, regular heart rate otherwise was unremarkable Differential diagnosis includes was not limited to atrial fibrillation, atrial flutter, myocardial infarction, myocardial ischemia, hyperthyroidism, drug use disorder, anemia, electrolyte abnormality Following evaluation was ordered: CBC, CMP, BNP, ethanol level, drug screen urine, PT/INR, PTT, chest x-ray two view Patient was treated with the following: IV insert, monitor and storage bin tender, O2 saturation monitor, diltiazem 25 mg IV, normal saline 125 cc/hours 1606: My interpretation patient's laboratory evaluation as follows: CBC was normal. CMP was normal except for an elevated glucose of 149. Patient's high sensitive troponin I was detectable but not elevated at 7.6-I will repeat a 3 troponin. COVID-19 was negative. BNP was just above the upper limit of normal at 101. The patient's rate has been varying 100-130 beats per minute therefore I ordered diltiazem 10 mg IV and a 500 cc normal saline bolus. I did discuss admission with the covering hospitalist, nurse practitioner Juhi Yap and the patient will be admitted for further rate control and diagnostic workup. Lab Data 06/04/23 14:21 06/04/23 14:21 Labs: Lab Results 06/04/23 Range/Units 14:21 WBC 10.8 (4.8-10.8) X10*3/uL RBC 4.30 L (4.60-5.80) X10*6/uL Hgb 14.0 (14.0-18.0) g/dl Hct 41.1 L (42.0-52.0) % MCV 95.6 (80.0-98.0) fL MCH 32.6 (27.0-33.0) pg MCHC 34.1 (31.0-36.0) g/dl RDW 12.7 (11.0-16.0) % Plt Count 206 (160-400) X10*3/uL MPV 10.2 (9.4-12.4) fL Immature Gran % (Auto) 0.5 H (0.0-0.4) % Neut % (Auto) 63.1 (45-73) % Lymph % (Auto) 26.1 (20-40) % Banner % (Auto) 7.3 (2-11) % Eos % (Auto) 2.4 (0-4) % Baso % (Auto) 0.6 (0-2) % Lymph # (Auto) 2.8 (1.2-4.9) X10*3/uL Banner # (Auto) 0.8 (0.1-1.2) X10*3/uL Eos # (Auto) 0.3 (0.0-0.4) X10*3/uL Baso # (Auto) 0.1 (0.0-0.2) X10*3/uL Abs Immat Gran (auto) 0.05 H (0.00-0.03) X10*3/uL Absolute Neuts (auto) 6.8 (2.0-8.3) x10*3/uL Absolute Nucleated RBC 0.000 (0.0-0.012) X10*3/uL Nucleated RBC % (auto) 0.0 (0.0-0.2) /100WBC PT 12.2 (11.1-13.3) SEC INR 1.0 (0.9-1.1) APTT 29.6 (26.0-36.8) SEC Sodium 143 (135-145) mmol/L Potassium 4.0 (3.3-5.1) mmol/L Chloride 107 (96-108) mmol/L Carbon Dioxide 28 (22-29) mmol/L Anion Gap 12 (12-20) BUN 17 H (9-16) mg/dL Creatinine 0.97 (0.5-1.4) mg/dL Estim Creat Clear Calc 107.2 Estimated GFR > 60 Random Glucose 149 H (60-115) mg/dL Calcium 9.7 (8.4-10.2) mg/dL Total Bilirubin 0.4 (0.0-1.0) mg/dL AST 28 (5-37) U/L ALT 30 (0-40) U/L Alkaline Phosphatase 53 (39-117) U/L Troponin I High Sens 7.6 (<3.5-35.0) ng/L B-Natriuretic Peptide 101 H (<100) pg/mL Total Protein 7.1 (6.5-8.0) g/dL Albumin 4.1 (3.5-5.0) g/dL Ethyl Alcohol < 10 mg/dL COVID-19 (GERALD) Negative (Negative) COVID-19 Clin Com See Note Independent Interpretation I performed an independent interpretation of an: EKG and Plain X-Ray Interpretation: My interpretation patient's 12 EKG done at 13:50 hours is as follows: Atrial flutter with a 2-1 AV block with a rate of 144, normal QRS interval, prolonged QTC interval 545 milliseconds, no ST segment elevation, no ST segment depression, no T-wave abnormalities. My interpretation patient's one-view chest x-ray is as follows: No acute disease Radiology Impression Discussion of test interpretation with radiology: I have reviewed the radiologist's reading. Radiologist Impression: XR chest 2V IMPRESSION: Unremarkable chest exam. Dictated By: Logan Burnett MD Critical Care Time Critical Care Time Critical Care Time: Yes Total Critical Care Time: 45 Attestation: Critical Care: The patient was critically ill with a high probability of imminent or life threatening deterioration. I spent greater than 30 minutes of discontinuous time evaluating the patient,delivering critical care at the bedside, discussing and evaluating pertinent data with consultants. Critical care time does not include time spent performing separately billable procedures or teaching. Total time spent performing critical care was 45 minutes. Discharge Plan Discharge Patient Disposition: Admitted As Inpatient Prescriptions: No Action omeprazole 40 mg capsule,delayed release(DR/EC) 40 mg PO DAILY Qty: 90 3RF metoprolol tartrate 25 mg tablet 12.5 mg PO BID Qty: 90 1RF (DME) FreeStyle Lite Strips Strip See Rx Instructions .Route Qty: 200 1RF Rx Instructions: Test blood sugar twice a day (DME) blood-glucose meter [FreeStyle Lite Meter] Kit See Rx Instructions .Route Qty: 1 0RF Rx Instructions: As directed (DME) lancets [FreeStyle Lancets] 28 gauge misc See Rx Instructions .Route Qty: 200 1RF Rx Instructions: Test blood sugar twice a day fluticasone furoate-vilanterol [Breo Ellipta] 100-25 mcg/dose blister with device 1 inh inhalation DAILY Qty: 1 0RF cyanocobalamin (vitamin B-12) 500 mcg Tablet 500 mcg PO DAILY magnesium oxide 400 mg (241.3 mg magnesium) tablet 400 mg PO BID Rx Instructions: After meals sildenafil [Viagra] 100 mg tablet 100 mg PO DAILY PRN (Reason: Sexual Activity) Rx Instructions: Take 1/2 tablet once a day, administer 30 minutes to 4 hours before activity atorvastatin 20 mg tablet 20 mg PO BEDTIME Qty: 90 0RF lisinopril 2.5 mg tablet 2.5 mg PO DAILY Qty: 90 0RF metformin 500 mg tablet extended release 24 hr 500 mg PO DAILY Qty: 90 3RF albuterol sulfate [Ventolin HFA] 90 mcg/actuation HFA aerosol inhaler 2 puff inhalation Q6H PRN (Reason: shortness of breath or wheezing) Qty: 8.5 2RF Eliquis 5 mg tablet 5 mg PO BID 30 Days Qty: 60 3RF doxycycline hyclate 100 mg tablet 100 mg PO BID 10 Days Qty: 20 0RF
[2023-06-04 14:29] LABS: MANUAL DIFF FLAG NO
[2023-06-04 14:31] LABS: Basophils Absolute Auto 0.1 X10*3/uL (0.0-0.2); Basophils Percent Auto 0.6 % (0-2); Eosinophils Absolute Auto 0.3 X10*3/uL (0.0-0.4); Eosinophils Percent Auto 2.4 % (0-4); Hematocrit 41.1 % (42.0-52.0); Imm Gran Abs Auto 0.05 X10*3/uL (0.00-0.03); Imm Gran Pct Auto 0.5 % (0.0-0.4); Lymphocytes Absolute Auto 2.8 X10*3/uL (1.2-4.9); Lymphocytes Percent Auto 26.1 % (20-40); Mean Corpuscular HGB Conc 34.1 g/dl (31.0-36.0); Mean Corpuscular Hemoglobin 32.6 pg (27.0-33.0); Mean Corpuscular Volume 95.6 fL (80.0-98.0); Mean Platelet Volume 10.2 fL (9.4-12.4); Monocytes Absolute Auto 0.8 X10*3/uL (0.1-1.2); Monocytes Percent Auto 7.3 % (2-11); Neutrophils Absolute Auto 6.8 x10*3/uL (2.0-8.3); Neutrophils Percent Auto 63.1 % (45-73); Platelet Count 206 X10*3/uL (160-400); Red Cell Distribution Width 12.7 % (11.0-16.0); White Blood Count 10.8 X10*3/uL (4.8-10.8)
[2023-06-04 14:38] LABS: Prothrombin Time 12.2 SEC (11.1-13.3)
[2023-06-04 14:41] LABS: Partial Thromboplastin Time 29.6 SEC (26.0-36.8)
[2023-06-04 14:46] LABS: COVID-19 Test Negative (Negative); IDNOW Serial# 152EDE1D
[2023-06-04 14:48] LABS: Alanine Aminotransferase 30 U/L (0-40); Albumin Level 4.1 g/dL (3.5-5.0); Alkaline Phosphatase 53 U/L (39-117); Anion Gap 12 (12-20); Aspartate Amino Transferase 28 U/L (5-37); Bilirubin Total 0.4 mg/dL (0.0-1.0); Blood Urea Nitrogen 17 mg/dL (9-16); Calcium 9.7 mg/dL (8.4-10.2); Carbon Dioxide 28 mmol/L (22-29); Chloride 107 mmol/L (96-108); Creatinine Clr Calc Pharmacy 107.2; Estimated Glomerular Filt Rate > 60; Glucose Random 149 mg/dL (60-115); Sodium 143 mmol/L (135-145); Total Protein 7.1 g/dL (6.5-8.0)
[2023-06-04 14:51] LABS: B Type Natriuretic Peptide 101 pg/mL (<100); Ethanol < 10 mg/dL; Troponin-I High Sensitivity 7.6 ng/L (<3.5-35.0)
[2023-06-04] MEDS: dilTIAZem HCL 50 MG/10 ML VIAL 25 MG IVPUSH (15:28)
[2023-06-04] MEDS: 0.9 % Sodium Chloride 1,000 ML 125 ML IV (15:31)
[2023-06-04] MEDS: dilTIAZem HCL 50 MG/10 ML VIAL 10 MG IVPUSH (16:53)
--- NOTE | 2023-06-04 17:12 | PHA.MEDREC ---
Pharmacy Consult ? Medication Reconciliation Pharmacy has completed the medication reconciliation. Patient report Eliquis was not approved so he did not pick it up from the pharmacy therefore removed from Home list. Patient currently taking Wixela but is being switch to Breo, let as Breo as we have inpatient and he will picket labor union from the pharmacy. Lexy Stanford, JasonD
--- NOTE | 2023-06-04 17:29 | PM.IMHP ---
History of Present Illness Date of Service: 06/04/23 Attending physician on admission: S[facility] Chief Complaint: rapid heart rate 63-year-old male with history of hypertension, [id number]-[id number] type 2 diabetes, hyperlipidemia, morbid obesity with BMI greater than 47, history of alcohol dependence in sustained remission (last drink 2019), remote history of cocaine abuse (last use 20+ years ago), and GERD presented to the ED earlier today from Echo/card where he was undergoing echocardiogram due to elevated heart rate around 115. Echocardiogram was not performed and instead he was sent to the ED for further evaluation. The patient reports he was diagnosed with atrial fibrillation on 05/20 by his PCP and heart rate was well-controlled so outpatient workup was pursued. Was prescribed metoprolol 12.5 mg b.i.d. as well as Eliquis. However he reports insurance did not cover the Eliquis so this was not started. He states he has been experiencing some dyspnea on exertion but this has been ongoing for several years and has not acutely worsened. He denies any fevers, chills, recent illness, urinary symptoms, cough, shortness of breath at rest, palpitations, lightheadedness, or chest pain. He does report feeling ?jittery? as well as anxious currently but otherwise has no complaints. On arrival, tachycaria ranging 122-140s given 25mg IV dilt with limited improvement followed by 10mg IV diltiazem with improvement to low 100s. No hypoxia or hypotension. Afebrile. Hematology studies unremarkable. Renal function baseline, electrolyte levels normal. Magnesium level pending. Troponin within normal limits at 7.6. BNP 101. TSH was checked by PCP on 05/20 and was normal at 1.77. Hemoglobin A1c 6.9%. Chest x-ray negative for any acute cardiopulmonary abnormality. EKG shows atrial flutter with Mobitz I AV harvey block, rate 144. with nonspecific st/t wave abnormality. In the ED, given IV dilt pushes as above and 500ml IVF. He will be admitted for further management of afib with rvr. Review of Systems Review of Systems: General: No fevers, malaise, unintentional weight loss HEENT: No blurred vision, diplopia. No sore throat, nasal congestion, rhinorrhea, sinus pain, ear pain Cardiovascular: No chest pain, palpitations, or leg edema Respiratory: +lao. No shortness of breath at rest, wheezing, cough GI: No abdominal pain, nausea, vomiting, diarrhea, constipation, melena, hematochezia : No dysuria, hematuria, increased urinary frequency, decreased urinary output MSK: No myalgia, back pain Neuro: No headaches, weakness, paresthesias Psych: +anxiety Skin: No rashes or lesions [facility], [facility] Medical History Myalgia Morbid obesity Localized swelling of both lower legs Elevated ferritin Arthralgia Diverticulitis large intestine w/o perforation or abscess w/o bleeding HTN (hypertension) Polyarthralgia Hemochromatosis Family History Father Substance use disorder Mother Breast cancer Substance use disorder Brother Substance use disorder Surgical History History of shoulder surgery History of resection of terminal ileum Social History Household Members: Spouse Housing: House Are you a primary director career to a significant other at home: No Do you presently have visiting nurse or other home services: No Alcohol intake: former Patient Tobacco Use Status: Never used Tobacco Smoked in Last 30 Days: No e-Cigarette/Vaping Use: Never Used Patient Interested in Nicotine Replacement: No Patient Given Instructions on How to Stop Smoking: No Second Hand Smoke Exposure: No Use of substances other than those prescribed or required for medical reasons: No Currently Displaying Signs/Symptoms of Drug Intoxication Withdrawal: No Any prior treatment program specific to substance use: No Have you been hit, kicked, punched, or otherwise hurt by someone within the past year? If so, by whom?: No Do you feel safe in your current relationship?: No Is there a partner from a previous relationship who is making you feel unsafe now?: No Advance Directives: Yes Advance Directives Information Provided: Yes Advance Directives on File: No Advance Directives Date on File: 06/04/23 Do you have thoughts of harming others: None Do you have a plan to hurt others: No Plan Recently lost weight without trying: No How much weight loss: Not applicable Eating poorly because of decreased appetite: No Nutrition screen score: 0 Nutrition Risks: No Nutritional Risk service: No Current occupational status: employed Current occupation: Works in [employer] Current occupational exposures/hazards: Yes Cognitive needs: No Hearing needs: No Vision needs: No Meds Allergies Allergy/AdvReac Type Severity Reaction Status Date / Time No Known Allergies Allergy Verified 05/20/23 07:33 Active Medications: Current Medications Acetaminophen (Acetaminophen 325 Mg Tablet) 650 mg PO Q6H PRN PRN Reason: Pain, Mild (Pain Scale 1-3) Dextrose (Dextrose 50 % 25 Gm/50 Ml Syringe) 25 gm IVPUSH Q15M PRN; Protocol PRN Reason: per Hypoglycemia Standing Ord. Glucose (Glucose Gel 15 Gm Gel..Gram.) 15 gm PO Q15M PRN; Protocol PRN Reason: per Hypoglycemia Standing Ord. Insulin Human Lispro (Insulin Lispro 100 Unit/Ml 3 Ml Vial) 0 unit [facility]BCUT [facility]; Protocol Metoprolol Tartrate (Metoprolol Tartrate 25 Mg Tablet) 25 mg PO QID [facility]; Protocol Ondansetron HCl (Ondansetron Hcl 4 Mg/2 Ml Vial) 4 mg IVPUSH Q8H PRN PRN Reason: Nausea and Vomiting Senna (Sennosides 8.6 Mg Tablet) 17.2 mg PO BEDTIME PRN PRN Reason: Constipation Sodium Chloride (0.9 % Sodium Chloride Flush 3 Ml Syringe) 3 [facility] Medications Medication Instructions Recorded Confirmed Last Taken Type magnesium oxide 400 mg (241.3 mg 400 mg PO BID 02/06/20 06/04/23 06/04/23 History magnesium) tablet sildenafil 100 mg tablet (Viagra) 100 mg PO DAILY PRN Sexual Activity 02/06/20 06/04/23 06/04/23 History cyanocobalamin (vitamin B-12) 500 500 mcg PO DAILY 09/05/20 06/04/23 06/04/23 History mcg tablet Physical Exam Vital Signs and Narrative: Vital Signs: Last Vital Signs Temp 98.2 F 06/04/23 14:00 Pulse 134 H 06/04/23 16:54 Resp 16 06/04/23 16:54 BP 119/76 06/04/23 16:54 Pulse Ox 96 06/04/23 16:54 O2 Del Method Room Air 06/04/23 16:54 BMI result Body Mass Index 47.1 Constitutional - Awake and Alert, morbidly obese, No apparent distress Eyes - PERRLA, EOMI Cardiovascular - S1S2, irregularly irregular, tachycardic, 1+ BLE edema Respiratory - Normal lung expansion, Normal respiratory effort, No respiratory distress, CTA bilaterally Gastrointestinal - NT / ND; +BS; No rebound or guarding Extremities - no calf tenderness bilaterally, no swelling Skin - Warm/Dry Neurological - Alert & oriented x3 Psychological - anxious appearing Results Labs 06/05/23 07:00 06/05/23 07:00 Labs: Laboratory Results - last 24 hr 06/04/23 14:21 MCV 95.6 MCH 32.6 MCHC 34.1 RDW 12.7 Plt Count 206 MPV 10.2 Immature Gran % (Auto) 0.5 H Neut % (Auto) 63.1 Lymph % (Auto) 26.1 Terrell % (Auto) 7.3 Eos % (Auto) 2.4 Baso % (Auto) 0.6 Lymph # (Auto) 2.8 Terrell # (Auto) 0.8 Eos # (Auto) 0.3 Baso # (Auto) 0.1 Abs Immat Gran (auto) 0.05 H Absolute Neuts (auto) 6.8 Absolute Nucleated RBC 0.000 Nucleated RBC % (auto) 0.0 PT 12.2 INR 1.0 APTT 29.6 Anion Gap 12 Estim Creat Clear Calc 107.2 Estimated GFR > 60 Random Glucose 149 H Calcium 9.7 Total Bilirubin 0.4 AST 28 ALT 30 Alkaline Phosphatase 53 B-Natriuretic Peptide 101 H Total Protein 7.1 Albumin 4.1 Ethyl Alcohol < 10 COVID-19 (GERALD) Negative COVID-19 Clin Com See Note Imaging Radiologist's Impressions: Impressions Chest X-Ray 06/04/23 14:50 IMPRESSION: Unremarkable chest exam. Assessment and Plan (1) Atrial fibrillation with rapid ventricular response: Status: Acute (2) Atrial flutter: Status: Acute Plan 63-year-old male with history of hypertension, [id number] type 2 diabetes, hyperlipidemia, morbid obesity with BMI greater than 47, history of alcohol dependence in sustained remission (last drink 2019), remote history of cocaine abuse (last use 20+ years ago), and GERD admitted for further management of atrial fibrillation/flutter with RVR. # atrial fibrillation/flutter with RVR -diagnosed 05/20 by pcp -EKG shows atrial flutter with RVR, rate 144 -trop within normal limits, repeat pending -given 25 mg IV diltiazem and 10 mg IV diltiazem, remains in RVR with heart rate 100-110 at rest, occassionally jumps to 140 when speaking -Trial metoprolol 25mg QID. Initiate cardizem drip per protocol if no improvements -Eliquis 5 mg b.i.d -TSH normal, magnesium level pending -echocardiogram -cardiology consult -cardiac diet -outpatient sleep study to evaluate for SHIMA -monitor on telemetry # Mobmatthias type 1 AV harvey block -asymptomatic -cardiology consult, monitor on telemetry # controlled non insulin-dependent type 2 diabetes -last hemoglobin A1c 6.9% -POC glucose, diabetic diet -Humalog on sliding scale -hold metformin # hypertension -blood pressure reasonably controlled -metoprolol as above, continue lisinopril # wheezing -no formal diagnosis of asthma or COPD noted in chart -continue Breo Ellipta, albuterol p.r.n. # GERD -PPI # HLD -statin # morbid obesity with BMI greater than 47 -weight loss efforts encouraged -recommend outpatient home sleep study to evaluate for SHIMA DVT prophylaxis-Eliquis Full code Patient requires inpatient stay at least 2 midnights due to atrial fibrillation with rapid ventricular rate requiring management with IV rate control medications, continuous cardiac monitoring, expert consultation and may require IV Cardizem drip per protocol Quality Stroke Does the patient have a stroke diagnosis?: No VTE Prior VTE?: No VTE Risk Level:: Medical - moderate - high VTE Device Contraindication: Treatment Not Indicated VTE Drug Contraindication: N/A - Med Ordered
[2023-06-04 18:02] LABS: Magnesium 1.6 mg/dL (1.6-2.6)
[2023-06-04] MEDS: Metoprolol Tartrate 25 MG TABLET PO ×2 (18:47→20:25)
[2023-06-04] MEDS: Apixaban 5 MG TABLET PO (18:47)
--- NOTE | 2023-06-04 19:18 | PC.NURSE ---
late entry: informed CARSON Moerno of pts elevated HR maintaining low one-teens to 140s after 25mg IV Push Dilt and a second round of 10mg IV push Dilt. - per Christa BYRD plan for PO Metoprolol and reassess prior to starting dilt gtt. .
--- NOTE | 2023-06-04 19:31 | PC.NURSE ---
Christa BYRD at bedside plan to start GTT DIlt.
[2023-06-04] MEDS: dilTIAZem HCL 125 MG in 0.9 % Sodium Chloride 100 ML 10 MG IVCONT (19:49)
--- NOTE | 2023-06-04 19:51 | PC.NURSE ---
Dilt. drip started per JUL. Pt will be transported to room 470 by T/W and transport, Pt aware of plan .
[2023-06-04 19:58] LABS: Troponin-I High Sensitivity 11.7 ng/L (<3.5-35.0)
[2023-06-04] MEDS: Atorvastatin Calcium 20 MG TABLET PO (20:25)
[2023-06-04] MEDS: Magnesium Oxide 400 MG TABLET PO (20:25)
[2023-06-04 20:33] LABS: Glucose, Whole Blood 141 mg/dL (60-115)
[2023-06-05] VITALS: BP 118/73; PULSE 72; RESP 18; TEMP 36.4; O2SAT 94
[2023-06-05 02:33] LABS: Amphetamine Screen Urine Not Detected (Not Detect); Barbiturates, Urine Not Detected (Not Detect); Benzodiazepines Screen Urine Not Detected (Not Detect); Cannabinoid Screen Urine Not Detected (Not Detect); Cocaine Screen Urine Not Detected (Not Detect); Fentanyl, urine Not Detected (Not Detect); Opiate Screen Urine Not Detected (Not Detect); Phencyclidine Screen Urine Not Detected (Not Detect)
[2023-06-05 03:22] VITALS: BP 128/78; PULSE 70; RESP 18; TEMP 36.1; O2SAT 95
[2023-06-05] MEDS: Albuterol/Iprat 2.5/0.5MG 3 ML AMPUL.NEB INHALE (05:38)
[2023-06-05 05:40] VITALS: PULSE 70; RESP 18; O2SAT 95
[2023-06-05] MEDS: Omeprazole 40 MG CAPSULE.DR PO (06:06)
[2023-06-05 06:58] LABS: Glucose, Whole Blood 135 mg/dL (60-115)
--- NOTE | 2023-06-05 07:00 | CA_ITS ---
Transthoracic Echocardiogram Patient (Last, First, Middle): Alvarez Ochoa F Gender: Male Date of : 1960 Age: 63 Procedure Date: 06/05/2023 Procedure Type: Transthoracic Echocardiogram [place] [facility] [place] Height: 172.72 cm Weight: 140.62 kg BSA: 2.46 m2 Heart Rate: bpm BP: 128 / 97 mmHg Structural Steel Erector: TULIO Referring MD: Christa BYRD Electric Serviceman: Fredi Hart MD Symptoms: new onset afib Study Quality: Technically Difficult due to obesity ECG Rhythm: Atrial Fibrillation Conclusions: - 1. Nihv-be-nlaoiupl LV systolic dysfunction with LVEF of 40 45% with mild LVH 2. Limited visualization of cardiac valves with normal cardiac valvular Dopplers Findings Procedure Information Contrast agent, definity, is being given per protocol without apparent complications. Left Ventricle The left ventricle was not well visualized. Normal left ventricular cavity size. There is mildly increased left ventricular wall thickness. The left ventricular systolic function is mild to moderately decreased. The visually estimated ejection fraction is between 40-45%. Diastolic function is indeterminate on the basis of available data. Right Ventricle The right ventricle was not well visualized. Atria The left atrium was not well visualized. Interatrial shunt cannot be excluded. The right atrium was not well visualized. Aortic Valve The aortic valve was not well visualized. There is no aortic valve stenosis. Mitral Valve The mitral valve was not well visualized. Pulmonic Valve The pulmonic valve was not well visualized. Tricuspid Valve The tricuspid valve was not well visualized. Tricuspid regurgitation envelope is inadequate for calculation of right ventricular systolic pressure. Great Vessels All visible segments of the aorta are normal in size. The pulmonary artery was not well visualized. Venous The inferior vena cava was not well visualized. Pericardium/Pleural The pericardium was not well visualized. Prior Study Comparison Changes noted compared to prior study dated: 03/11/2020. LV systolic function appears to be depressed. Delays in reporting due to technical issue Measurements 2D Linear Measurements IVSd: 1.26 0.6-0.9/0.6-1.0 cm LVIDd: 4.65 3.9-5.3/4.2-5.9 cm LVIDd Index: 1.89 2.4-3.2/2.2-3.1 cm/m2 LVIDs: 2.90 2.0-3.6 cm LVPWd: 1.34 0.7-1.1 cm Ao Root: 3.40 2.1-3.5 cm LA Diam: 4.30 2.7-3.8/3.0-4.0 cm LAIDs Index: 1.75 1.5-2.3 cm/m2 LV Mass: 291.75 67-162/88-224 g LV Mass Index: 118.60 43-95/49-115 g/m2 LVOT Diam: 2.10 3.0+(-)1.3 cm 2D Systolic Function EF 4C: 50.40 >55% EF 2C: 39.50 >55% EF BiP: 44.30 >55% Mitral Valve MV Pk E: 0.83 MV Decel Time: 173.00 E'Lateral: 13.70 E'Medial: 7.18 E/E' Med: 11.60 E/E' Lat: 6.10 PHT: 51.00 MVA PHT: 4.31 Decel Jennings: 4.82 Aortic Valve AoV Pk Yuosuf: 1.29 AoV Mn Yousuf: 0.82 AoV VTI: 0.21 AoV Pk Grad: 7.00 Aov Mn Grad: 3.00 MAXX Cont.VTI: 2.84 LVOT LVOT Pk Yousuf: 0.97 LVOT Mn Yousuf: 0.61 LVOT VTI: 0.17 LVOT Pk Grad: 4.00 LVOT Mn Grad: 2.00 LVOT Diam: 2.10 LVOT Area: 3.46 Diastolic Function MV Pk E: 0.83 E'Medial: 7.18 E/E' Med: 11.60 E' Laterial: 13.70 E/E' Lat: 6.10 Great Vessels Aorta Ao Root-2D: 3.40 2.0-3.7 cm Ao Asc: 3.40 2.1-3.4 cm Pulmonary Valve PV Pk Yousuf: 0.83 Peak PV Grad: 3.00 Updated in Other Vendor System with Status of Final Fredi Hart MD electronically signed on 06/06/2023 12:19:40 PM with status of Final
[2023-06-05 07:05] VITALS: BP 128/97; PULSE 114; RESP 20; TEMP 36.6; O2SAT 94
[2023-06-05 07:16] LABS: Hematocrit 40.7 % (42.0-52.0); Hemoglobin 13.6 g/dl (14.0-18.0); Mean Corpuscular HGB Conc 33.4 g/dl (31.0-36.0); Mean Corpuscular Hemoglobin 32.3 pg (27.0-33.0); Mean Corpuscular Volume 96.7 fL (80.0-98.0); Mean Platelet Volume 10.5 fL (9.4-12.4); Platelet Count 185 X10*3/uL (160-400); Red Blood Count 4.21 X10*6/uL (4.60-5.80)
--- NOTE | 2023-06-05 07:21 | PC.NURSE ---
Patient complaining of SOB this am , with exertion and at rest. LS clear, no wheezing noted. Hospitalist notified, Updraft treatment ordered. HR up to 120's/130's Cardizem drip increased to 15 mg. vital signs stable. Report given to to marko HARRISON.
[2023-06-05 07:32] LABS: Anion Gap 15 (12-20); Blood Urea Nitrogen 18 mg/dL (9-16); Calcium 9.3 mg/dL (8.4-10.2); Carbon Dioxide 24 mmol/L (22-29); Chloride 106 mmol/L (96-108); Creatinine Clr Calc Pharmacy 125.3; Estimated Glomerular Filt Rate > 60; Glucose Random 148 mg/dL (60-115); Potassium 3.8 mmol/L (3.3-5.1); Sodium 141 mmol/L (135-145)
[2023-06-05] MEDS: 0.9 % Sodium Chloride Flush 3 ML SYRINGE IVFLUSH (07:39)
[2023-06-05] MEDS: Cyanocobalamin (Vitamin B-12) 500 MCG TABLET PO (07:39)
[2023-06-05] MEDS: Metoprolol Tartrate 25 MG TABLET PO (07:39)
[2023-06-05] MEDS: lisinopriL 2.5 MG TABLET PO (07:39)
[2023-06-05] MEDS: Magnesium Oxide 400 MG TABLET PO (07:39)
--- NOTE | 2023-06-05 08:08 | ECG_ITS ---
Test Reason : Afib RVR Blood Pressure : / mmHG Vent. Rate : 098 BPM Atrial Rate : 286 BPM P-R Int : 000 ms QRS Dur : 084 ms QT Int : 298 ms P-R-T Axes : 196 000 -58 degrees QTc Int : 380 ms Atrial flutter with variable A-V block Cannot rule out Anterior infarct , age undetermined Abnormal ECG When compared with ECG of 04-JUN-2023 13:50, Nonspecific T wave abnormality no longer evident in Lateral leads Referred By: Sadi Ballesteros Electronically Signed By:ELIE PEREZ MD
[2023-06-05 08:19] VITALS: PULSE 74; RESP 20; O2SAT 96
[2023-06-05] MEDS: Fluticasone/Vilanterol 100/25 BLST.W.DEV 1 PUFF INHALE (08:19)
--- NOTE | 2023-06-05 08:34 | MHC.CM.PN ---
Pt lives with his , he is independent, does not use home health services or medical equipment. He will complete HCP form here and it will be added to chart. to transport home upon DC, PCP: Yair Angel. CM to follow and assist with DC plan.
[2023-06-05] MEDS: Metoprolol Succinate ER 50 MG TAB.ER.24H PO (09:19)
--- NOTE | 2023-06-05 09:46 | P.CONCA_ITS ---
History of Present Illness History of Present Illness Date of Service: 06/05/23 Requesting physician: Sadi Ballesteros Consult reason: other (Atrial flutter) Chief complaint: afib rvr Narrative: Thank you for consulting on Alvarez in cardiology consultation today for management of atrial flutter with rapid ventricular response. He has a pleasant 63-year-old male with prior history of morbid obesity, diabetes who presented yesterday for an outpatient echocardiogram very was noted to be in rapid heart rate. He was therefore referred to the emergency room. He was then started on Cardizem drip. Overnight Cardizem drip was stopped. This morning his heart rate was again 140 beats per minute. Got metoprolol. Heart rate in the 70s and 80s at rest. He said he had a annual physical exam about 2 weeks ago and was noted to have rapid heart rate. Prior to that he had significant shortness of breath over the last 2 years but no obvious cause was found. He was not in atrial flutter all the time. He has not noticed any worsening shortness of breath in the last 2-3 weeks. He denies any orthopnea, PND. 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 Denies any palpitations, lightheadedness, syncope. No exertional chest pain. Review of Systems 2 Constitutional: Constitutional: Reports no additional constitutional complaints Eyes: Eyes: Reports no additional eye complaints Cardiovascular: Cardiovascular: Denies chest pain, Denies rapid heart rate, Denies leg edema, Denies lightheadedness, Denies Loss of Consciousness, Denies palpitations, Reports dyspnea on exertion and Denies orthopnea Respiratory: Respiratory: Reports no additional respiratory complaints and Reports dyspnea on exertion Gastrointestinal: Gastrointestinal: Reports no additional gastrointestinal complaints Genitourinary: Genitourinary: Reports no additional male genitourinary complaints Musculoskeletal: Musculoskeletal: Reports no additional musculoskeletal complaints Neurologic: Reports system reviewed and no additional complaints, except as documented Psychiatric: Psychiatric: Reports no additional psychiatric complaints Endocrine: Endocrine: Reports no additional endocrine complaints and Denies palpitations PMFSH Past Medical History Medical History Myalgia Morbid obesity Localized swelling of both lower legs Elevated ferritin Arthralgia Diverticulitis large intestine w/o perforation or abscess w/o bleeding HTN (hypertension) Polyarthralgia Hemochromatosis Family History Family History Father Substance use disorder Mother Breast cancer Substance use disorder Brother Substance use disorder Surgical History Surgical History History of shoulder surgery History of resection of terminal ileum Social History Social History Household Members: Spouse Housing: House Are you a primary youth career specialist to a significant other at home: No Do you presently have visiting nurse or other home services: No Alcohol intake: former Patient Tobacco Use Status: Never used Tobacco Smoked in Last 30 Days: No e-Cigarette/Vaping Use: Never Used Patient Interested in Nicotine Replacement: No Patient Given Instructions on How to Stop Smoking: No Second Hand Smoke Exposure: No Use of substances other than those prescribed or required for medical reasons: No Currently Displaying Signs/Symptoms of Drug Intoxication Withdrawal: No Any prior treatment program specific to substance use: No Have you been hit, kicked, punched, or otherwise hurt by someone within the past year? If so, by whom?: No Do you feel safe in your current relationship?: No Is there a partner from a previous relationship who is making you feel unsafe now?: No Advance Directives: Yes Advance Directives Information Provided: Yes Advance Directives on File: No Advance Directives Date on File: 06/04/23 Do you have thoughts of harming others: None Do you have a plan to hurt others: No Plan Recently lost weight without trying: No How much weight loss: Not applicable Eating poorly because of decreased appetite: No Nutrition screen score: 0 Nutrition Risks: No Nutritional Risk service: No Current occupational status: employed Current occupation: Works in [employer] Current occupational exposures/hazards: Yes Cognitive needs: No Hearing needs: No Vision needs: No Meds Allergies Allergy/AdvReac Type Severity Reaction Status Date / Time No Known Allergies Allergy Verified 05/20/23 07:33 Active Medications: Current Medications Acetaminophen (Acetaminophen 325 Mg Tablet) 650 mg PO Q6H PRN PRN Reason: Pain, Mild (Pain Scale 1-3) Albuterol Sulfate (Albuterol Sulfate 90 Mcg 8 Gm Inhaler) 2 puff INHALE Q6H PRN PRN Reason: shortness of breath or wheezing Albuterol/Ipratropium (Albuterol/Iprat 2.5/0.5mg 3 Ml Ampul.Neb) 3 ml INHALE Q4H PRN PRN Reason: Wheezing Last Admin: 06/05/23 05:38 Dose: 3 ml Atorvastatin Calcium (Atorvastatin Calcium 20 Mg Tablet) 20 mg PO BEDTIME [facility] Last Admin: 06/04/23 20:25 Dose: 20 mg Cyanocobalamin (Cyanocobalamin (Vitamin B-12) 500 Mcg Tablet) 500 mcg PO DAILY [facility] Last Admin: 06/05/23 07:39 Dose: 500 mcg Dextrose (Dextrose 50 % 25 Gm/50 Ml Syringe) 25 gm IVPUSH Q15M PRN; Protocol PRN Reason: per Hypoglycemia Standing Ord. Fluticasone/Vilanterol (Fluticasone/Vilanterol 100/25 Blst.W.Dev) 1 puff INHALE RDAILY [facility] Last Admin: 06/05/23 08:19 Dose: 1 puff Glucose (Glucose Gel 15 Gm Gel..Gram.) 15 gm PO Q15M PRN; Protocol PRN Reason: per Hypoglycemia Standing Ord. Diltiazem HCl 125 mg/ Sodium (Chloride) 125 mls @ 0 mls/hr IVCONT .Q0M [facility]; Protocol Last Titration: 06/05/23 09:05 Dose: 0 mg/hr, 0 mls/hr Insulin Human Lispro (Insulin Lispro 100 Unit/Ml 3 Ml Vial) 0 unit SUBCUT QIDACHS [facility]; Protocol Last Admin: 06/05/23 07:22 Dose: Not Given Lisinopril (Lisinopril 2.5 Mg Tablet) 2.5 mg PO DAILY [facility]; Protocol Last Admin: 06/05/23 07:39 Dose: 2.5 mg Magnesium Oxide (Magnesium Oxide 400 Mg Tablet) 400 mg PO BID [facility] Last Admin: 06/05/23 07:39 Dose: 400 mg Metoprolol Succinate (Metoprolol Succinate Er 50 Mg Tab.Er.24h) 50 mg PO BID [facility]; Protocol Last Admin: 06/05/23 09:19 Dose: 50 mg Omeprazole (Omeprazole 40 Mg Capsule.Dr) 40 mg PO DAILY@0630 [facility] Last Admin: 06/05/23 06:06 Dose: 40 mg Ondansetron HCl (Ondansetron Hcl 4 Mg/2 Ml Vial) 4 mg IVPUSH Q8H PRN PRN Reason: Nausea and Vomiting Senna (Sennosides 8.6 Mg Tablet) 17.2 mg PO BEDTIME PRN PRN Reason: Constipation Sodium Chloride (0.9 % Sodium Chloride Flush 3 Ml Syringe) 3 ml IVFLUSH QSHIFT [facility] Last Admin: 06/05/23 07:39 Dose: 3 ml Home Medications Medication Instructions Recorded Confirmed Last Taken Type magnesium oxide 400 mg (241.3 mg 400 mg PO BID 02/06/20 06/04/23 06/04/23 History magnesium) tablet sildenafil 100 mg tablet (Viagra) 100 mg PO DAILY PRN Sexual Activity 02/06/20 06/04/23 06/04/23 History cyanocobalamin (vitamin B-12) 500 500 mcg PO DAILY 09/05/20 06/04/23 06/04/23 History mcg tablet Physical Exam 2 Vital Signs: Vital Signs: Last Vital Signs Temp 97.9 F 06/05/23 07:05 Pulse 74 06/05/23 08:19 Resp 20 06/05/23 08:19 BP 128/97 H 06/05/23 07:05 Pulse Ox 94 06/05/23 07:05 O2 Del Method Room Air 06/05/23 07:05 BMI result Body Mass Index 47.1 Const: General: cooperative, comfortable, no acute distress, alert and awake Nutritional Appearance: obese morbidly obese Orientation/consciousness: p atient oriented x3 Limitations: no limitations HEENT: Head: Yes normocephalic and Yes atraumatic Neck: Neck: Yes trachea midline, Yes supple and Yes no JVD Resp: Effort & Inspection: normal respiratory effort Auscultation: clear to auscultation bilaterally Cardio: Jugular venous distension: no JVD Rate: regular rate Rhythm: a bnormal rhythm irregularly irregular Heart sounds: S1 normal heart sound present, S2 normal heart sound present, no click, no gallops, no murmurs and no rubs GI: Auscultation: normal bowel sounds Skin: General skin exam: no rashes or lesions noted Neuro: General: patient oriented x3 and no focal motor deficits Extrem: General: Yes no clubbing, cyanosis or edema Psych: Appearance: grossly normal Objective Labs and Meds 06/05/23 07:00 06/05/23 07:00 Lab results: Laboratory Results - last 24 hr 06/04/23 06/04/23 06/04/23 14:21 19:32 20:24 WBC 10.8 RBC 4.30 L Hgb 14.0 Hct 41.1 L MCV 95.6 MCH 32.6 MCHC 34.1 RDW 12.7 Plt Count 206 MPV 10.2 Immature Gran % (Auto) 0.5 H Neut % (Auto) 63.1 Lymph % (Auto) 26.1 Linn % (Auto) 7.3 Eos % (Auto) 2.4 Baso % (Auto) 0.6 Lymph # (Auto) 2.8 Linn # (Auto) 0.8 Eos # (Auto) 0.3 Baso # (Auto) 0.1 Abs Immat Gran (auto) 0.05 H Absolute Neuts (auto) 6.8 Absolute Nucleated RBC 0.000 Nucleated RBC % (auto) 0.0 PT 12.2 INR 1.0 APTT 29.6 Sodium 143 Potassium 4.0 Chloride 107 Carbon Dioxide 28 Anion Gap 12 BUN 17 H Creatinine 0.97 Estim Creat Clear Calc 107.2 Estimated GFR > 60 POC Glucose 141 H Random Glucose 149 H Calcium 9.7 Magnesium 1.6 Total Bilirubin 0.4 AST 28 ALT 30 Alkaline Phosphatase 53 Troponin I High Sens 7.6 11.7 D B-Natriuretic Peptide 101 H Total Protein 7.1 Albumin 4.1 Urine Opiates Screen Urine Fentanyl Screen Ur Barbiturates Screen Ur Phencyclidine Scrn Ur Amphetamines Screen U Benzodiazepines Scrn Urine Cocaine Screen U Marijuana (THC) Screen Ethyl Alcohol < 10 COVID-19 (GERALD) Negative COVID-19 Clin Com See Note 06/05/23 06/05/23 06/05/23 02:10 06:55 07:00 WBC 11.0 H RBC 4.21 L Hgb 13.6 L Hct 40.7 L MCV 96.7 MCH 32.3 MCHC 33.4 RDW 13.0 Plt Count 185 MPV 10.5 Immature Gran % (Auto) Neut % (Auto) Lymph % (Auto) Linn % (Auto) Eos % (Auto) Baso % (Auto) Lymph # (Auto) Linn # (Auto) Eos # (Auto) Baso # (Auto) Abs Immat Gran (auto) Absolute Neuts (auto) Absolute Nucleated RBC 0.000 Nucleated RBC % (auto) 0.0 PT INR APTT Sodium 141 Potassium 3.8 Chloride 106 Carbon Dioxide 24 Anion Gap 15 BUN 18 H Creatinine 0.83 Estim Creat Clear Calc 125.3 Estimated GFR > 60 POC Glucose 135 H Random Glucose 148 H Calcium 9.3 Magnesium Total Bilirubin AST ALT Alkaline Phosphatase Troponin I High Sens B-Natriuretic Peptide Total Protein Albumin Urine Opiates Screen Not Detected Urine Fentanyl Screen Not Detected Ur Barbiturates Screen Not Detected Ur Phencyclidine Scrn Not Detected Ur Amphetamines Screen Not Detected U Benzodiazepines Scrn Not Detected Urine Cocaine Screen Not Detected U Marijuana (THC) Screen Not Detected Ethyl Alcohol COVID-19 (GERALD) COVID-19 Clin Com EKG 2. Yesterday shows atrial flutter with variable block with controlled ventricular response with poor R-wave progression most likely due to body habitus. Imaging Radiologist's impression: Impressions Chest X-Ray 06/04/23 14:50 IMPRESSION: Unremarkable chest exam. Assessment and Plan (1) Atrial flutter: Status: Acute New onset atrial flutter over the last 2 weeks with difficult control rate as outpatient. Patient admitted. Rate is not better controlled on rate control medications. Patient is not having any signs or symptoms of cardiac decompensation. He has not having any obvious new symptoms in the last 2 weeks although this is difficult to assess. I have advised about management of atrial flutter. We discussed in detail about pathophysiology of atrial flutter. Possible risk factors include morbid obesity, possible untreated underlying sleep apnea which needs to be workup quickly. CHADSVASc score of 1. Should be on oral anticoagulation therapy, can be on Eliquis 5 mg b.i.d.. Rate control with Toprol-XL 50 mg b.i.d.. Will set him up for outpatient echocardiogram and Holter next week. Follow up in the clinic in 3 weeks to discuss synchronized cardioversion. Long-term management of atrial flutter was discussed with him. Discussed with him about aggressive weight loss program which has shown to reduce recurrence of atrial fibrillation/flutter. He showed understanding. Follow up in the clinic in 3 weeks' time. Patient can be discharged home later. Procedures Date of Service Date of Service: 06/05/23
--- NOTE | 2023-06-05 10:48 | PM.DS ---
DS: Providers Provider Date of Service: 06/05/23 Date of admission: 06/04/23 17:22 Primary care physician: MARK Padilla Consults: 06/04/23 17:24 Consult to Cardiology Routine Consulting Provider[place] [facility] Reason for consultation: afib rvr DS: Diagnosis Discharge Diagnosis (1) Atrial flutter: Status: Acute DS: Summary Hospital Course Hospital Course: This 63-year-old male with history of hypertension, [id number] type 2 diabetes, hyperlipidemia, morbid obesity with BMI greater than 47, history of alcohol dependence in sustained remission (last drink 2019), remote history of cocaine abuse (last use 20+ years ago), and GERD presented to the ED on 06/04/23 from Echo/card where he was undergoing echocardiogram due to elevated heart rate around 115. Echocardiogram was not performed and instead he was sent to the ED for further evaluation. Patient was diagnosed with Afib on 05/20/23 by PCP and was prescribed metoprolol 12.5mg BID and Eliquis (Eliquis was not started due to insurance not covering medication). In ED he was tachycardic at 122-140 bpm and was given 25mg IV dilt with limited improvement followed by 10mg IV diltiazem with improvement to low 100s. Patient was not hypoxic, hypotensive, lightheaded, or dyspneic. Hematology studies unremarkable. Renal function baseline, electrolyte levels normal. Magnesium 1.6. Troponin within normal limits at 7.6 and repeat of11.7. BNP 101. TSH was checked by PCP on 05/20 and was normal at 1.77. Hemoglobin A1c 6.9%. Chest x-ray negative for any acute cardiopulmonary abnormality. EKG showed atrial flutter with Mobitz I AV harvey block, rate [address]/t wave abnormality. He was admitted for atrial fibrillation/flutter with RVR and started on Diltiazem drip which was stopped once heart rate was controlled and has been started on metoprolol short acting 25 mg 5 times a day and will converted to Troprol XL 50 mg twice daily On 06/05/2023 he was evaluated by cardiology (Dr. Hart) who recommended SHIMA workup and weight loss for management of atrial flutter. Additionally, he recommended patient be on oral anticoagulation with Eliquis 5mg BID and Toprol-XL 50mg BID. Dr. Hart recommended patient be seen on outpatient basis in following week for echocardiogram and Holter monitor with additional follow up in 3 weeks to discuss synchronized cardioversion. He is beingl discharged on Eliquis 5mg BID and Toprolol-XL 50mg BID. controlled non insulin-dependent type 2 diabetes -Resume home metformin hypertension -metoprolol as above, continue lisinopril GERD -PPI HLD -Statin Status at Discharge Functional status at discharge: independent ambulation Overall status at discharge: patient is back to baseline Time Attestation Discharge coordination time: Greater than 30 minutes Quality: Safe Use of Opioids Does Pt have an Active Cancer Diagnosis on the Problem List?: No Quality: Stroke Does the patient have a stroke diagnosis?: No Physical Exam Vital Signs: Vital Signs: Last Vital Signs Temp 97.9 F 06/05/23 07:05 Pulse 74 06/05/23 08:19 Resp 20 06/05/23 08:19 BP 128/97 H 06/05/23 07:05 Pulse Ox 94 06/05/23 07:05 O2 Del Method Room Air 06/05/23 07:05 BMI result Body Mass Index 47.1 General: Awake, alert in no distress Lung: breath sounds symmetric, no wheezing, rales or rhonchi Heart: Tachycardia with irregular rate, no murmurs Abdomen: soft, non-tender, nondistended, normal bowel sounds Extremities: no edema Psych: Pleasant, cooperative DS: Data Data Completed and Pending Labs on day of discharge: Laboratory Results - last 24 hr 06/04/23 06/04/23 06/04/23 14:21 19:32 20:24 WBC 10.8 RBC 4.30 L Hgb 14.0 Hct 41.1 L MCV 95.6 MCH 32.6 MCHC 34.1 RDW 12.7 Plt Count 206 MPV 10.2 Immature Gran % (Auto) 0.5 H Neut % (Auto) 63.1 Lymph % (Auto) 26.1 [place] % (Auto) 7.3 Eos % (Auto) 2.4 Baso % (Auto) 0.6 Lymph # (Auto) 2.8 [place] # (Auto) 0.8 Eos # (Auto) 0.3 Baso # (Auto) 0.1 Abs Immat Gran (auto) 0.05 H Absolute Neuts (auto) 6.8 Absolute Nucleated RBC 0.000 Nucleated RBC % (auto) 0.0 PT 12.2 INR 1.0 APTT 29.6 Sodium 143 Potassium 4.0 Chloride 107 Carbon Dioxide 28 Anion Gap 12 BUN 17 H Creatinine 0.97 Estim Creat Clear Calc 107.2 Estimated GFR > 60 POC Glucose 141 H Random Glucose 149 H Calcium 9.7 Magnesium 1.6 Total Bilirubin 0.4 AST 28 ALT 30 Alkaline Phosphatase 53 Troponin I High Sens 7.6 11.7 D B-Natriuretic Peptide 101 H Total Protein 7.1 Albumin 4.1 Urine Opiates Screen Urine Fentanyl Screen Ur Barbiturates Screen Ur Phencyclidine Scrn Ur Amphetamines Screen U Benzodiazepines Scrn Urine Cocaine Screen U Marijuana (THC) Screen Ethyl Alcohol < 10 COVID-19 (GERALD) Negative COVID-19 Perfusix See Note 06/05/23 06/05/23 06/05/23 02:10 06:55 07:00 WBC 11.0 H RBC 4.21 L Hgb 13.6 L Hct 40.7 L MCV 96.7 MCH 32.3 MCHC 33.4 RDW 13.0 Plt Count 185 MPV 10.5 Immature Gran % (Auto) Neut % (Auto) Lymph % (Auto) [place] % (Auto) Eos % (Auto) Baso % (Auto) Lymph # (Auto) [place] # (Auto) Eos # (Auto) Baso # (Auto) Abs Immat Gran (auto) Absolute Neuts (auto) Absolute Nucleated RBC 0.000 Nucleated RBC % (auto) 0.0 PT INR APTT Sodium 141 Potassium 3.8 Chloride 106 Carbon Dioxide 24 Anion Gap 15 BUN 18 H Creatinine 0.83 Estim Creat Clear Calc 125.3 Estimated GFR > 60 POC Glucose 135 H Random Glucose 148 H Calcium 9.3 Magnesium Total Bilirubin AST ALT Alkaline Phosphatase Troponin I High Sens B-Natriuretic Peptide Total Protein Albumin Urine Opiates Screen Not Detected Urine Fentanyl Screen Not Detected Ur Barbiturates Screen Not Detected Ur Phencyclidine Scrn Not Detected Ur Amphetamines Screen Not Detected U Benzodiazepines Scrn Not Detected Urine Cocaine Screen Not Detected U Marijuana (THC) Screen Not Detected Ethyl Alcohol COVID-19 (GERALD) COVID-19 Eloqua Com Discharge Plan Discharge Anticipated Discharge Date/Time: 06/05/23 11:11 Patient Disposition: Home, Self-Care Discharge Diagnosis: Atrial Flutter with RVR Referrals: Yari Angel, [employer] [Primary Care Provider] - 1 Week Discharge Medications: New metoprolol succinate 50 mg Tablet Extended Release 24 Hr 50 mg PO BID Qty: 60 1RF Protocol: Hold for SBP/HR < HOLD for SBP < : 90 HOLD for HR < : 60 Eliquis 5 mg Tablet 5 mg PO BID Qty: 60 2RF Continued omeprazole 40 mg capsule,delayed release(DR/EC) 40 mg PO DAILY Qty: 90 3RF (DME) FreeStyle Lite Strips Strip See Rx Instructions .Route Qty: 200 1RF Rx Instructions: Test blood sugar twice a day (DME) blood-glucose meter [FreeStyle Lite Meter] Kit See Rx Instructions .Route Qty: 1 0RF Rx Instructions: As directed (DME) lancets [FreeStyle Lancets] 28 gauge misc See Rx Instructions .Route Qty: 200 1RF Rx Instructions: Test blood sugar twice a day fluticasone furoate-vilanterol [Breo Ellipta] 100-25 mcg/dose blister with device 1 inh inhalation DAILY Qty: 1 0RF cyanocobalamin (vitamin B-12) 500 mcg Tablet 500 mcg PO DAILY magnesium oxide 400 mg (241.3 mg magnesium) tablet 400 mg PO BID Rx Instructions: After meals sildenafil [Viagra] 100 mg tablet 100 mg PO DAILY PRN (Reason: Sexual Activity) Rx Instructions: Take 1/2 tablet once a day, administer 30 minutes to 4 hours before activity atorvastatin 20 mg tablet 20 mg PO BEDTIME Qty: 90 0RF lisinopril 2.5 mg tablet 2.5 mg PO DAILY Qty: 90 0RF metformin 500 mg tablet extended release 24 hr 500 mg PO DAILY Qty: 90 3RF albuterol sulfate [Ventolin HFA] 90 mcg/actuation HFA aerosol inhaler 2 puff inhalation Q6H PRN (Reason: shortness of breath or wheezing) Qty: 8.5 2RF Discontinued metoprolol tartrate 25 mg tablet 12.5 mg PO BID Qty: 90 1RF Discharge Orders: Discharge Order (Routine); Ordered 06/05/23 Ordered By: Sadi Ballesteros Diet: Diabetic diet Activity on Discharge: As tolerated Stand Alone Forms: Patient Portal Discharge page Care Plan Goals: Manage atrial flutter outpatient Health Concerns: Atrial Flutter, diabetes, hypertension, weight loss Plan of Treatment: Follow up with cardiology next week for echocardiogram and holter monitor; then follow up in 3 weeks to discuss cardioversion for atrial flutter. Continue metoprolol 50mg twice a day and Eliquis 5mg twice a day. Follow up with PCP to further discuss obstructive sleep apnea workup and weight loss strategies. Continue home medications for diabetes and hypertension. Assessment: As above.
[2023-06-05 10:53] LABS: Glucose, Whole Blood 145 mg/dL (60-115)
[2023-06-05 11:00] VITALS: BP 122/79; PULSE 76; RESP 18; TEMP 36.7; O2SAT 94
--- NOTE | 2023-06-05 11:59 | MHC.CM.PN ---
Pt has been medically cleared for DC, he will get transport home from his , DC plan is home, Self care.
[2023-06-05] MEDS: Apixaban 5 MG TABLET PO (12:29)
== END 2023-06-05 13:18 | disposition home or self-care (01) | DRG 309 ==
LOC: HO.ED 16:34 → HO.EDOVER 17:39 → HO.IMC 17:48
PROVIDERS: Admitting Provider Physician Assistant; Emergency Provider Emergency Medicine Emergency Medical Services; PCP Nurse Practitioner Family; Visit Provider Internal Medicine
DX: I48.92 Unspecified atrial flutter (principal); Z68.42 Body mass index [BMI] 45.0-49.9, adult; K21.9 Gastro-esophageal reflux disease without esophagitis; I44.1 Atrioventricular block, second degree; E78.5 Hyperlipidemia, unspecified; E66.01 Morbid (severe) obesity due to excess calories; F10.21 Alcohol dependence, in remission; Z20.822 Contact with and (suspected) exposure to COVID-19; Z79.51 Long term (current) use of inhaled steroids; Z79.84 Long term (current) use of oral hypoglycemic drugs; Z79.899 Other long term (current) drug therapy
CPT/HCPCS: 36415; 71046; 80048; 80053; 80307; 82947; 83735; 83880; 84484; 85025; 85027; 85610; 85730; 87635; 93005; 93306; 94640; 94664; 99285; Q9957

== ENCOUNTER → 2023-06-04 13:38 | Outpatient (BNV) | payer OTHER, SELFPAY | PROVIDERS: Admitting Provider Physician Assistant; Emergency Provider Emergency Medicine Emergency Medical Services; PCP Nurse Practitioner Family; Visit Provider Internal Medicine Cardiovascular Disease | DX: I48.92 Unspecified atrial flutter (principal); R94.31 Abnormal electrocardiogram [ECG] [EKG] | CPT/HCPCS: 93010 ==

== ENCOUNTER 2023-06-04 17:22 | Outpatient (BNV) | payer OTHER, SELFPAY | END 2023-06-05 08:08 | PROVIDERS: Admitting Provider Physician Assistant; Emergency Provider Emergency Medicine Emergency Medical Services; PCP Nurse Practitioner Family; Visit Provider Internal Medicine Cardiovascular Disease | DX: I48.92 Unspecified atrial flutter (principal); R94.31 Abnormal electrocardiogram [ECG] [EKG] | CPT/HCPCS: 93010; 93306 ==

== ENCOUNTER → 2023-06-04 17:22 | Outpatient (BNV) | payer OTHER, SELFPAY | PROVIDERS: Admitting Provider Physician Assistant; Emergency Provider Emergency Medicine Emergency Medical Services; PCP Nurse Practitioner Family; Visit Provider Physician Assistant | DX: I48.91 Unspecified atrial fibrillation (principal); I48.92 Unspecified atrial flutter; E11.9 Type 2 diabetes mellitus without complications | CPT/HCPCS: 99223; 99239 ==

== ENCOUNTER → 2023-06-04 17:22 | Outpatient (BNV) | payer OTHER, SELFPAY | PROVIDERS: Admitting Provider Physician Assistant; Emergency Provider Emergency Medicine Emergency Medical Services; PCP Nurse Practitioner Family; Visit Provider Internal Medicine Cardiovascular Disease | DX: I48.92 Unspecified atrial flutter (principal) | CPT/HCPCS: 99222 ==

== ENCOUNTER 2023-06-10 07:42 | Outpatient (AMB) | payer OTHER, SELFPAY ==
--- NOTE | 2023-06-10 08:04 | MHC.PC.OV ---
Vital Signs 06/10/23 08:06 Height 5 ft 8 in Weight 317 lb BMI 48.2 BP 126/88 Blood Pressure Location Lt brachial Position Sitting Pulse 77 Pulse Source Pulse Oximeter Pulse Oximetry (%) 99 Oxygen Delivery Method Room Air Intake Visit Reasons: HDF [facility] - afib/new medications Intake Note: Pt is here for HDF from [facility] for A-Fib Allergies No Known Allergies Allergy (Verified 06/10/23 08:08) Medication List - Last Reconciled 06/10/23 by STEPHANIE Rodriguez- albuterol sulfate 90 mcg/actuation (Ventolin HFA) 2 puffs inhalation Q6H PRN apixaban (Eliquis) 5 mg PO BID 90 days atorvastatin 20 mg PO BEDTIME cyanocobalamin (vitamin B-12) 500 mcg PO DAILY fluticasone furoate-vilanterol 100-25 mcg/dose (Breo Ellipta) 1 inh inhalation DAILY FreeStyle Lite Meter (blood-glucose meter) As directed NS FreeStyle Lite Strips (blood sugar diagnostic) Test blood sugar twice a day NS lancets (FreeStyle Lancets) Test blood sugar twice a day lisinopril 2.5 mg PO DAILY magnesium oxide 400 mg PO BID metformin ER 500 mg PO DAILY metoprolol succinate ER 50 mg See Protocol PO BID omeprazole 40 mg PO DAILY sildenafil (Viagra) 100 mg PO DAILY PRN Tobacco use date assessed: 06/10/23 Dental Screening Dental Screen Date: 06/10/23 Did you have a dental visit in the last 12 months?: Yes Did you have a dental problem in the last 6 months where you did not have access to dental care?: No Was dental information given to patient?: Patient has dentist HPI F [facility] - afib/new medications HPI Details Pt was seen in the ER on 06/04 after having an echo when he was noted to be in atrial flutter with a rapid ventricular response of 150. Pt was given IV diltiazem. CBC was WNL, CMP was normal except for elevated glucose at 149. High sensitivity troponin was detectable but not elevated at 7.6. Pt was negative for COVID. BNP was 101. Chest XR was negative for acute abnormality. EKG showed atrial flutter with Mobitz I AV harvey block, rate [address]/t wave abnormality. He was admitted and started on a diltiazem drip which was stopped once heart rate was controlled. Pt was started on metoprolol short acting 25 mg twice a day and was converted to Toprol XL 50 mg twice daily. He was seen by cardiology who recommended SHIMA workup and weight loss for management of atrial flutter. Additionally, he recommended patient be on oral anticoagulation with Eliquis 5mg BID and Toprol-XL 50mg BID. It was recommended that pt have an echo and holter and discuss synchronized cardioversion. Pt had an echo and is going for a holter tomorrow. Pt was d/c on eliquis 5mg bid and toprol XL 50mg bid. He is completely asymptomatic. Denies chest pain, shortness of breath, headache, dizziness, and blurred vision. Pt is a diabetic, last A1C was 6.9. he is currently work on his diet, and will be following up with nursing staff for further education. [facility] Medical History Myalgia Morbid obesity Localized swelling of both lower legs Elevated ferritin Arthralgia Diverticulitis large intestine w/o perforation or abscess w/o bleeding HTN (hypertension) Polyarthralgia Hemochromatosis Surgical History History of shoulder surgery History of resection of terminal ileum Family History Father Substance use disorder Mother Breast cancer Substance use disorder Brother Substance use disorder Social History Household Members: Spouse Housing: House Are you a primary career services manager to a significant other at home: No Do you presently have visiting nurse or other home services: No Alcohol intake: former Patient Tobacco Use Status: Never used Tobacco e-Cigarette/Vaping Use: Never Used Second Hand Smoke Exposure: No Advance Directives Date on File: 06/04/23 service: No Current occupational status: employed Current occupation: Works in [employer] Current occupational exposures/hazards: Yes Cognitive needs: No Hearing needs: No Vision needs: No Questionnaire Thrive Questionnaire Date Thrive assessed: 06/05/23 ZEHRA-7 AMB Questionnaire ZEHRA-7 Date ZEHRA - 7 assessed: 05/20/23 Source: Developed by Drs. Brennon Rizvi, Cristina Albrecht, Qasim Westfall and colleagues, with an educational yolanda from Done In :60 Seconds. Review of Systems Const Reports as per HPI Physical exam (Primary Care) Vital Signs: Last Vital Signs Pulse 77 06/10/23 08:06 BP 126/88 06/10/23 08:06 Pulse Ox 99 06/10/23 08:06 Oxygen Delivery Method Room Air 06/10/23 08:06 BMI result Body Mass Index 48.2 Tobacco/Smoking Status: Tobacco use Status Tobacco use date assessed 06/10/23 06/10/23 08:11 Patient Tobacco Use Status Never used Tobacco 06/10/23 08:04 e-Cigarette/Vaping Use Never Used 06/10/23 08:04 Thrive Assessment: Date of Thrive Assessment Date Thrive assessed 06/05/23 06/10/23 08:04 Const General: cooperative Nutritional Appearance: obese morbidly obese Orientation/consciousness: patient oriented x3 Resp Effort & Inspection: normal respiratory effort Auscultation: clear to auscultation bilaterally Cardio Rate: regular rate Rhythm: abnormal rhythm irregularly irregular Heart sounds: S1 normal heart sound present and S2 normal heart sound present Neuro General: patient oriented x3 Extrem Other: bilat feet: + sensation with use of monofilament Right lower extremity: no edema Left lower extremity: no edema Psych Appearance: grossly normal Mental Status: mental status grossly normal Speech and movement: Normal speech and movement present Affect: normal affect Attitude: cooperative Thought process: Normal thought process present Thought content: Normal thought content present Insight: Good insight present (Psych) Judgement: Good judgement present (Psych) Assessment and Plan Assessment & Plan (1) New onset a-fib: Code(s): I48.91 - Unspecified atrial fibrillation Plan: holter for tomorrow, echo done (2) Diabetes: Code(s): E11.9 - Type 2 diabetes mellitus without complications Plan: working on diet, taking meds, following up with nursing staff and myself (3) Morbid obesity: Code(s): E66.01 - Morbid (severe) obesity due to excess calories Plan The patient agreed to the use of a administrative medical director for this encounter. Scribed for MARK Rey by Leilani Jha administrative medical director, on 06/10/2023 at 08:20 EST. Orders: Orders Complete Blood Count Auto Diff Today E11.9 - Type 2 diabetes mellitus without complications, I48.91 - Unspecified atrial fibrillation TSH reflex Free T4 Today E11.9 - Type 2 diabetes mellitus without complications, I48.91 - Unspecified atrial fibrillation UA CC w/rflx Micro + Cult Today E11.9 - Type 2 diabetes mellitus without complications, I48.91 - Unspecified atrial fibrillation Comprehensive [place]. Panel Fast Today E11.9 - Type 2 diabetes mellitus without complications, I48.91 - Unspecified atrial fibrillation Lipid Panel Today E11.9 - Type 2 diabetes mellitus without complications, I48.91 - Unspecified atrial fibrillation Referrals Sleep Medicine Referral E66.01 - Morbid (severe) obesity due to excess calories, I48.91 - Unspecified atrial fibrillation Medications: Changed From apixaban (Eliquis) 5 mg PO BID 60 tabs 2RF To apixaban (Eliquis) 5 mg PO BID 90 days 180 tabs 2RF Refilled metoprolol succinate ER 50 mg See Protocol PO BID 60 tabs 1RF Coding Level of Care Code Est Pt Level 4 (39708) Diagnoses New onset a-fib I48.91 Diabetes E11.9 Morbid obesity E66.01
[2023-06-10 08:06] VITALS: BP 126/88; PULSE 77; O2SAT 99; BMI 48.2
== END 2023-06-10 08:30 | disposition home or self-care (01) ==
PROVIDERS: PCP Nurse Practitioner Family; Visit Provider Nurse Practitioner Family
DX: I48.91 Unspecified atrial fibrillation (principal); E11.9 Type 2 diabetes mellitus without complications; E66.01 Morbid (severe) obesity due to excess calories; Z68.42 Body mass index [BMI] 45.0-49.9, adult
CPT/HCPCS: 99214

== ENCOUNTER → 2023-06-11 07:40 | Outpatient (REF) | payer OTHER, SELFPAY ==
--- NOTE | 2023-06-11 07:42 | HM_ITS ---
Conclusion: 1. Patient was monitored for total period of 2 days and 22 hours 2. Baseline was atrial fibrillation with average heart of 81 beats per minute with good heart rate control 3. No significant pauses noted 4. No patient reported events MTDD
== END ==
LOC: HO.CARD 07:40
PROVIDERS: PCP Nurse Practitioner Family; Visit Provider Nurse Practitioner Family
DX: I48.91 Unspecified atrial fibrillation (principal); I48.92 Unspecified atrial flutter
CPT/HCPCS: 93242

== ENCOUNTER → 2023-06-11 07:42 | Outpatient (BNV) | payer OTHER, SELFPAY | PROVIDERS: PCP Nurse Practitioner Family; Visit Provider Internal Medicine Cardiovascular Disease | DX: I48.91 Unspecified atrial fibrillation (principal) | CPT/HCPCS: 93244 ==

== ENCOUNTER 2023-08-23 05:59 | Outpatient (REF) | payer OTHER, SELFPAY ==
[2023-08-23 06:16] LABS: MANUAL DIFF FLAG NO
[2023-08-23 07:58] LABS: Basophils Absolute Auto 0.1 X10*3/uL (0.0-0.2); Basophils Percent Auto 0.7 % (0-2); Eosinophils Absolute Auto 0.4 X10*3/uL (0.0-0.4); Eosinophils Percent Auto 4.7 % (0-4); Hematocrit 43.7 % (42.0-52.0); Hemoglobin 14.6 g/dl (14.0-18.0); Imm Gran Abs Auto 0.01 X10*3/uL (0.00-0.03); Imm Gran Pct Auto 0.1 % (0.0-0.4); Lymphocytes Absolute Auto 3.5 X10*3/uL (1.2-4.9); Lymphocytes Percent Auto 39.3 % (20-40); Mean Corpuscular HGB Conc 33.4 g/dl (31.0-36.0); Mean Corpuscular Hemoglobin 32.7 pg (27.0-33.0); Mean Corpuscular Volume 97.8 fL (80.0-98.0); Mean Platelet Volume 10.9 fL (9.4-12.4); Monocytes Absolute Auto 0.8 X10*3/uL (0.1-1.2); Monocytes Percent Auto 9.2 % (2-11); Neutrophils Absolute Auto 4.1 x10*3/uL (2.0-8.3); Platelet Count 230 X10*3/uL (160-400); Red Blood Count 4.47 X10*6/uL (4.60-5.80); Red Cell Distribution Width 12.6 % (11.0-16.0); White Blood Count 8.9 X10*3/uL (4.8-10.8)
[2023-08-23 08:03] LABS: Appearance Urine Clear; Color Urine Dark Yellow; Glucose Urine UA Negative (Negative); Leukocyte Esterase Urine Negative (Negative); Nitrite Urine Negative (Negative); PH 5.5 (5.0-9.0); Specific Gravity - Urine 1.025 (1.005-1.025); UMIC TRIGGER UACC YES; Urine Blood Negative (Negative); Urine Ketones Negative (Negative); Urine Protein 30 (1+) mg/dL (Neg-Trace)
[2023-08-23 08:15] LABS: Bacteria Urine None Seen (None Seen); Hyaline Casts Urine 0-2 /LPF (0-2); RBC Urine 0-2 /HPF (0-2); Squamous Epithelial Cell Urine 0-2 /HPF (0-2); WBC Urine 0-5 /HPF (0-5)
[2023-08-23 08:40] LABS: Alanine Aminotransferase 24 U/L (0-40); Albumin Level 4.1 g/dL (3.5-5.0); Alkaline Phosphatase 59 U/L (39-117); Anion Gap 14 (12-20); Aspartate Amino Transferase 23 U/L (5-37); Bilirubin Total 0.8 mg/dL (0.0-1.0); Blood Urea Nitrogen 14 mg/dL (9-16); Calcium 9.7 mg/dL (8.4-10.2); Carbon Dioxide 25 mmol/L (22-29); Chloride 106 mmol/L (96-108); Cholesterol 130 mg/dL (<200); Estimated Glomerular Filt Rate > 60; Glucose Fasting 143 mg/dL (60-99); HDL Cholesterol 52 mg/dL (>40); LDL Cholesterol Calculated 65 mg/dL (<100); Potassium 4.1 mmol/L (3.3-5.1); Sodium 141 mmol/L (135-145); Total Protein 7.1 g/dL (6.5-8.0); Triglycerides 67 mg/dL (<150)
[2023-08-23 08:46] LABS: TSH reflex Free T4 1.39 uIU/mL (0.32-4.0)
== END 2023-08-23 06:00 | disposition home or self-care (01) ==
LOC: HO.LAB 05:59
PROVIDERS: PCP Nurse Practitioner Family; Visit Provider Nurse Practitioner Family
DX: I48.19 Other persistent atrial fibrillation (principal); I42.9 Cardiomyopathy, unspecified; E11.9 Type 2 diabetes mellitus without complications
CPT/HCPCS: 36415; 80053; 80061; 81001; 81003; 84443; 85025; 93005

== ENCOUNTER 2023-08-23 09:32 | Outpatient (AMB) | payer OTHER, SELFPAY ==
[2023-08-23 09:41] VITALS: BP 120/70; PULSE 54; BMI 46.3
--- NOTE | 2023-08-23 09:41 | MHC.OFFVIS ---
Vital Signs 08/23/23 09:41 Height 5 ft 8 in Weight 304 lb 10.861 oz BMI 46.3 BP 120/70 Blood Pressure Location Lt brachial Position Sitting Pulse 54 Pulse Source Pulse Oximeter Intake Visit Reasons: Follow UP Lean Consultant Required: No Accompanied by: Self / Same As Patient Allergies No Known Allergies Allergy (Verified 06/10/23 08:08) Medication List - Last Reconciled 08/23/23 by Fredi Hart MD albuterol sulfate 90 mcg/actuation (Ventolin HFA) 2 puffs inhalation Q6H PRN apixaban (Eliquis) 5 mg PO BID 90 days atorvastatin 20 mg PO BEDTIME cyanocobalamin (vitamin B-12) 500 mcg PO DAILY FreeStyle Lite Meter (blood-glucose meter) As directed NS FreeStyle Lite Strips (blood sugar diagnostic) Test blood sugar twice a day NS lancets (FreeStyle Lancets) Test blood sugar twice a day losartan 25 mg PO DAILY magnesium oxide 400 mg PO BID metformin ER 500 mg PO DAILY metoprolol succinate ER 50 mg (1/2 x 100 mg) PO BID omeprazole 40 mg PO DAILY sildenafil (Viagra) 100 mg PO DAILY PRN HPI Comments Details: Alvarez comes for follow-up after longer gap then has hospitalization. Today still remains in atrial fibrillation. Continues to have exertional shortness of breath. Denies orthopnea, PND, leg edema. Denies any lightheadedness, syncope. Does have exertional fatigue. Has been taking his Eliquis religiously since hospitalization. No bleeding issues or neurologic events. Denies any exertional chest pain. He said he has been trying aggressively and lost about 20 lb with diet modification. Does not get much time to exercise. Echocardiogram during hospitalization at shown [id number] LV systolic dysfunction. No ischemic workup has been performed in the last many years. [facility] Medical History Myalgia Morbid obesity Localized swelling of both lower legs Elevated ferritin Arthralgia Diverticulitis large intestine w/o perforation or abscess w/o bleeding HTN (hypertension) Polyarthralgia Hemochromatosis Surgical History History of shoulder surgery History of resection of terminal ileum Family History Father Substance use disorder Mother Breast cancer Substance use disorder Brother Substance use disorder Social History Household Members: Spouse Housing: House Are you a primary child care attendant school to a significant other at home: No Do you presently have visiting nurse or other home services: No Alcohol intake: former Patient Tobacco Use Status: Never used Tobacco e-Cigarette/Vaping Use: Never Used Second Hand Smoke Exposure: No Advance Directives Date on File: 06/04/23 service: No Current occupational status: employed Current occupation: Works in [employer] Current occupational exposures/hazards: Yes Cognitive needs: No Hearing needs: No Vision needs: No Review of Systems Const Denies chills, Denies fatigue, Denies fever(s), Denies frequent falls, Denies weakness, Denies weight gain and Denies weight loss ENT Denies dizziness Card Denies chest pain, Denies leg edema, Denies lightheadedness, Denies palpitations, Denies dyspnea and Denies dyspnea on exertion Resp Denies cough, Denies dyspnea and Denies dyspnea on exertion GI Denies hematochezia Musc Denies abnormal gait, Denies muscle weakness, Denies numbness, Denies radiating pain into limb and Denies tingling Neuro Denies abnormal gait, Denies dizziness, Denies frequent falls, Denies numbness, Denies tingling and Denies weakness Endo Denies fatigue and Denies palpitations Physical Exam Vital Signs: Last Vital Signs Pulse 54 08/23/23 09:41 BP 120/70 08/23/23 09:41 BMI result Body Mass Index 46.3 Const General: cooperative, comfortable, no acute distress, alert and awake Nutritional Appearance: obese Orientation/consciousness: patient oriented x3 Limitations: no limitations Neck Neck: Yes trachea midline, Yes supple and Yes no JVD Resp Effort & Inspection: normal respiratory effort Auscultation: clear to auscultation bilaterally Cardio Rhythm: abnormal rhythm irregularly irregular Heart sounds: S1 normal heart sound present, S2 normal heart sound present, no click, no gallops, no murmurs and no rubs GI Auscultation: normal bowel sounds Skin General skin exam: no rashes or lesions noted Neuro General: patient oriented x3 and no focal motor deficits Extrem General: Yes no clubbing, cyanosis or edema Office Procedures EKG Details: EKG shows atrial fibrillation with nonspecific ST T wave changes [id number], Complete Assessment & Plan Assessment & Plan (1) Persistent atrial fibrillation: Code(s): I48.19 - Other persistent atrial fibrillation Category: Medical Plan: Alvarez comes for follow-up. Continues to have exertional shortness of breath remains in persistent atrial fibrillation at this point time with mild LV systolic dysfunction. He has been religiously taking his oral anticoagulation therapy for the last couple of months. His rate is adequately controlled. We discussed about management of atrial fibrillation given his age and new onset atrial fibrillation should pursue rhythm control approach. We discussed the scientific studies behind this. We discussed about synchronized cardioversion and the procedures in the details. Would avoid using antiarrhythmic drugs at this point in time unless he has recurrent atrial fibrillation. Likelihood of recurrence is higher and this was discussed with him. We discussed the risks, benefits, alternatives. He understands and agrees. Will be scheduled next week. 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 Holter monitor post cardioversion will be pursued. Continue to participate in aggressive weight loss program. Continue aggressive blood pressure control. Consider sleep apnea workup. (2) Cardiomyopathy: Code(s): I42.9 - Cardiomyopathy, unspecified Category: Medical Plan: Mild cardiomyopathy most likely related to atrial fibrillation new onset. Ischemia needs to be ruled out. Will refer him for vasodilating myocardial perfusion imaging to evaluate for myocardial ischemia. This will also help with antiarrhythmic drug management. Currently on losartan as well as metoprolol therapy for neurohormonal modulation. No signs or symptoms of heart failure. Continue aggressive risk factor modification including as above. Workup of sleep apnea should be considered. Will follow up in the clinic in 5 weeks time, sooner p.r.n.. Thank you for allowing me to partake in his care Orders: Orders ECG 3 day holter monitor 3 Weeks I48.19 - Other persistent atrial fibrillation CA lexiscan stress w myron Today I42.9 - Cardiomyopathy, unspecified Cardioversion 1 Week I48.19 - Other persistent atrial fibrillation
== END 2023-08-23 10:12 | disposition home or self-care (01) ==
PROVIDERS: PCP Nurse Practitioner Family; Visit Provider Internal Medicine Cardiovascular Disease
DX: I48.19 Other persistent atrial fibrillation (principal); I42.9 Cardiomyopathy, unspecified
CPT/HCPCS: 93010; 99214

== ENCOUNTER 2023-08-30 09:57 | Day surgery (SDC) | payer OTHER, SELFPAY ==
--- NOTE | 2023-08-29 08:49 | P.CONAN_ITS ---
Documented by User: Candice Adkins NP 08/29/23 08:52 HPI - Anesthesia Eval Consult details Narrative: 63yo [facility] Active Problems Active Problems: All Active Problems Cardiomyopathy (Acute) Persistent atrial fibrillation (Acute) Encounter for routine adult physical exam with abnormal findings (Acute) New onset a-fib (Acute) Wheezing (Acute) Leukocytosis (Acute) Diabetes (Acute) B12 deficiency (Acute) SOB (shortness of breath) on exertion (Acute) Screening PSA (prostate specific antigen) (Acute) Elevated PSA (Acute) Physical exam (Acute) Elevated CPK (Acute) Anemia (Acute) Myalgia (Acute) Hemochromatosis (Chronic) Morbid obesity (Acute) Past Medical History Medical History Cardiomyopathy Atrial flutter Persistent atrial fibrillation Myalgia Morbid obesity Localized swelling of both lower legs Elevated ferritin Arthralgia Diverticulitis large intestine w/o perforation or abscess w/o bleeding HTN (hypertension) Polyarthralgia Hemochromatosis Family History Family History Father Substance use disorder Mother Breast cancer Substance use disorder Brother Substance use disorder Surgical History Surgical History History of shoulder surgery History of resection of terminal ileum Social History Social History Household Members: Spouse Housing: House Are you a primary healthcare recruiter to a significant other at home: No Do you presently have visiting nurse or other home services: No Alcohol intake: former Patient Tobacco Use Status: Never used Tobacco e-Cigarette/Vaping Use: Never Used Second Hand Smoke Exposure: No Advance Directives: No Advance Directives Information Provided: Yes Advance Directives Date on File: 06/04/23 service: No Current occupational status: employed Current occupation: Works in [email or web address], [place] Current occupational exposures/hazards: Yes Cognitive needs: No Hearing needs: No Vision needs: No Meds Allergies Allergy/AdvReac Type Severity Reaction Status Date / Time No Known Allergies Allergy Verified 08/30/23 11:01 Home Medications ?Medication ?Instructions ?Recorded ?Confirmed ?Last Taken ?Type magnesium oxide 400 mg (241.3 mg 400 mg PO BID 02/06/20 08/30/23 06/04/23 History magnesium) tablet sildenafil 100 mg tablet (Viagra) 100 mg PO DAILY PRN Sexual Activity 02/06/20 08/30/23 06/04/23 History cyanocobalamin (vitamin B-12) 500 500 mcg PO DAILY 09/05/20 08/30/23 06/04/23 History mcg tablet Exam Narrative Narrative: ECHO 05/2023 Conclusions: - 1. [id number] LV systolic dysfunction with LVEF of 40 45% with mild LVH 2. Limited visualization of cardiac valves with normal cardiac valvular Dopplers Holter 06/2023 1. Patient was monitored for total period of 2 days and 22 hours 2. Baseline was atrial fibrillation with average heart of 81 beats per minute with good heart rate control 3. No significant pauses noted 4. No patient reported events Assessment and Plan Assessment Anesthesia Assessment: Chart Reviewed Documented by User: Cora Zafar MD 08/30/23 11:22 [facility] Past Medical History Medical History Cardiomyopathy Atrial flutter Persistent atrial fibrillation Myalgia Morbid obesity Localized swelling of both lower legs Elevated ferritin Arthralgia Diverticulitis large intestine w/o perforation or abscess w/o bleeding HTN (hypertension) Polyarthralgia Hemochromatosis Family History Family History Father Substance use disorder Mother Breast cancer Substance use disorder Brother Substance use disorder Family history of problems with anesthesia: Yes Surgical History Surgical History History of shoulder surgery History of resection of terminal ileum History of Problems with Anesthesia: Yes Social History Social History Household Members: Spouse Housing: House Are you a primary healthcare recruiter to a significant other at home: No Do you presently have visiting nurse or other home services: No Alcohol intake: former Patient Tobacco Use Status: Never used Tobacco e-Cigarette/Vaping Use: Never Used Second Hand Smoke Exposure: No Advance Directives: No Advance Directives Information Provided: Yes Advance Directives Date on File: 06/04/23 service: No Current occupational status: employed Current occupation: Works in [email or web address] [facility], [place] Current occupational exposures/hazards: Yes Cognitive needs: No Hearing needs: No Vision needs: No Meds Allergies Allergy/AdvReac Type Severity Reaction Status Date / Time No Known Allergies Allergy Verified 08/30/23 11:01 Home Medications ?Medication ?Instructions ?Recorded ?Confirmed ?Last Taken ?Type magnesium oxide 400 mg (241.3 mg 400 mg PO BID 02/06/20 08/30/23 06/04/23 History magnesium) tablet sildenafil 100 mg tablet (Viagra) 100 mg PO DAILY PRN Sexual Activity 02/06/20 08/30/23 06/04/23 History cyanocobalamin (vitamin B-12) 500 500 mcg PO DAILY 09/05/20 08/30/23 06/04/23 History mcg tablet Exam Airway Mallampati Class: III TM Dist: >3cm Neck ROM: Limited Heart: rrr Lungs: cta Assessment and Plan Assessment Anesthesia Assessment: Anesthesia Plan Discussed Final Anesthetic Review Family History of Problems with Anesthesia: Yes History of Problems with Anesthesia: Yes NPO: Yes ASA Class: III Final Preanesthetic Review: No Changes in Pt Med Stat, Meds/Allgs Chart Reviewed, Consent Obtained/Reviewed and Anes Risks/Benef Reviewed Patient Risk: Intermediate Procedure Risk: Low Anesthetic Plan Anesthetic Plan: MAC: Disposition: Standard PACU
[2023-08-30 11:08] LABS: Glucose, Whole Blood 131 mg/dL (60-115)
[2023-08-30 11:23] VITALS: BMI 46.5
--- NOTE | 2023-08-30 11:34 | MHC.SHP ---
Pre-Procedural Eval Section A - 24 Hr Update-Section A only Date of Service: 08/30/23 The patient is an INPATIENT: No Changes since office visit: Yes Patient answered all questions; No Cold of Flu in the past 2 weeks, No New Medical Problems and No Changes in Medication The patient has been examined within 24 hours of the surgical procedure. The History & Physical has been completed within 30 days and I have reviewed it.: Yes Section B - Complete if H&P > 30 days Chief Complaint: Unspecified atrial flutter Allergies: Allergies Allergy/AdvReac Type Severity Reaction Status Date / Time No Known Allergies Allergy Verified 08/30/23 11:01 Plan I have reviewed the history and physical and performed a pertinent physical examination on my patient. No changes have occurred unless specified. Time Spent With Patient Time: Total time managing care of this patient today ____ minutes.
[2023-08-30 11:37] VITALS: BP 138/94; PULSE 95; RESP 18; TEMP 36.8; O2SAT 96
--- NOTE | 2023-08-30 12:22 | P.CONAN_ITS ---
[facility] Active Problems Active Problems: All Active Problems Cardiomyopathy (Acute) Persistent atrial fibrillation (Acute) Encounter for routine adult physical exam with abnormal findings (Acute) New onset a-fib (Acute) Wheezing (Acute) Leukocytosis (Acute) Diabetes (Acute) B12 deficiency (Acute) SOB (shortness of breath) on exertion (Acute) Screening PSA (prostate specific antigen) (Acute) Elevated PSA (Acute) Physical exam (Acute) Elevated CPK (Acute) Anemia (Acute) Myalgia (Acute) Hemochromatosis (Chronic) Morbid obesity (Acute) Past Medical History Medical History Cardiomyopathy Atrial flutter Persistent atrial fibrillation Myalgia Morbid obesity Localized swelling of both lower legs Elevated ferritin Arthralgia Diverticulitis large intestine w/o perforation or abscess w/o bleeding HTN (hypertension) Polyarthralgia Hemochromatosis Family History Family History Father Substance use disorder Mother Breast cancer Substance use disorder Brother Substance use disorder Family history of problems with anesthesia: Yes Surgical History Surgical History History of shoulder surgery History of resection of terminal ileum History of Problems with Anesthesia: Yes Social History Social History Household Members: Spouse Housing: House Are you a primary child care lead teacher to a significant other at home: No Do you presently have visiting nurse or other home services: No Alcohol intake: former Patient Tobacco Use Status: Never used Tobacco e-Cigarette/Vaping Use: Never Used Second Hand Smoke Exposure: No Are you DNR?: No Advance Directives: No Advance Directives Information Provided: Yes Advance Directives Date on File: 06/04/23 Nutrition Risks: No Nutritional Risk service: No Current occupational status: employed Current occupation: Works in [employer] Current occupational exposures/hazards: Yes Cognitive needs: No Hearing needs: No Vision needs: No Meds Allergies Allergy/AdvReac Type Severity Reaction Status Date / Time No Known Allergies Allergy Verified 08/30/23 11:01 Home Medications ?Medication ?Instructions ?Recorded ?Confirmed ?Last Taken ?Type magnesium oxide 400 mg (241.3 mg 400 mg PO BID 02/06/20 08/30/23 06/04/23 History magnesium) tablet sildenafil 100 mg tablet (Viagra) 100 mg PO DAILY PRN Sexual Activity 02/06/20 08/30/23 06/04/23 History cyanocobalamin (vitamin B-12) 500 500 mcg PO DAILY 09/05/20 08/30/23 06/04/23 History mcg tablet Exam Height,Weight and Vital Signs: Height 5 ft 8 in Weight 138.799 kg Last Vital Signs Temp 98.2 F 08/30/23 11:37 Pulse 95 08/30/23 11:37 Resp 18 08/30/23 11:37 BP 138/94 H 08/30/23 11:37 Pulse Ox 96 08/30/23 11:37 O2 Del Method Room Air 08/30/23 11:37 Pertinent Lab Results Pertinent Lab Results: Laboratory Tests 08/30/23 10:57 POC Glucose 131 H Assessment and Plan Final Anesthetic Review Family History of Problems with Anesthesia: Yes History of Problems with Anesthesia: Yes
--- NOTE | 2023-08-30 12:31 | ECG_ITS ---
Test Reason : post op Blood Pressure : / mmHG Vent. Rate : 057 BPM Atrial Rate : 057 BPM P-R Int : 210 ms QRS Dur : 084 ms QT Int : 414 ms P-R-T Axes : 028 007 043 degrees QTc Int : 402 ms Sinus bradycardia with 1st degree A-V block with Premature supraventricular complexes Cannot rule out Anterior infarct (cited on or before 05-JUN-2023) Abnormal ECG When compared with ECG of 05-JUN-2023 07:39, Sinus rhythm has replaced Atrial flutter Vent. rate has decreased BY [address] no longer depressed in Inferior leads ST no longer depressed in Lateral leads Nonspecific T wave abnormality, improved in Inferior leads Referred By: Fredi Hart Electronically Signed By:FREDI HART MD
[2023-08-30 12:37] VITALS: BP 124/70; PULSE 58; RESP 16; TEMP 36.3; O2SAT 98
--- NOTE | 2023-08-30 12:38 | HO.CARDIVERS ---
Cardioversion Procedure Note Cardioversion Date of Procedure: Today Ordering Provider: Harsha Hart Performing Provider: Harsha Hart Indication for Procedure: Persistent atrial fibrillation with cardiomyopathy Pre-Op Diagnosis: Same Post-Op Diagnosis: Normal sinus rhythm Performed with Transesophageal Echo: No History: See my office note Consent: Verbal and Written consent was obtained from the patient before starting after confirming oral anticoagulation use. The patient was made aware of the risk of cardioversion including benefits and alternatives Procedure: After consent obtained, cardioversion pads were attached in anteroposterior configuration and the patient was sedated by the anesthesia team. Once adequate sedation achieved, patient was delivered 200 joules of biphasic synchronized energy in anteroposterior configuration Complications: None Impression: Successful conversion to sinus rhythm Recommendations: 1. 12 lead EKG 2. Continue full oral anticoagulation as well as metoprolol therapy 3. Follow up in the clinic after Holter monitor
[2023-08-30 12:42] VITALS: BP 124/70; PULSE 56; RESP 16; O2SAT 98
--- NOTE | 2023-08-30 12:44 | HO.POSTANES ---
Post Anesthesia Evaluation Post Anesthesia Evaluation Date of Service: 08/30/23 Vital Signs: Vital Signs Temp Pulse Resp BP Pulse Ox O2 Del Method 08/30/23 11:37 98.2 F 95 18 138/94 H 96 Room Air Anesthesia: General Mental Status: Awake Pain Control: Satisfactory Nausea/Vomiting: None Hydration: Adequate Anesthesia-Related Issues: No Anes. Related Issues
[2023-08-30 12:47] VITALS: BP 128/72; PULSE 59; RESP 18; O2SAT 98
[2023-08-30 12:52] VITALS: BP 121/64; PULSE 57; RESP 16; O2SAT 97
--- NOTE | 2023-08-30 13:05 | HO.POSTANES ---
Post Anesthesia Evaluation Post Anesthesia Evaluation Date of Service: 08/30/23 Vital Signs: Vital Signs Temp Pulse Resp BP Pulse Ox O2 Del Method O2 Flow Rate 08/30/23 12:52 57 16 121/64 97 Room Air 08/30/23 12:47 59 18 128/72 98 Nasal Cannula with ETCO2 08/30/23 12:42 56 16 124/70 98 Nasal Cannula with ETCO2 2 08/30/23 12:37 97.3 F 58 16 124/70 98 Nasal Cannula with ETCO2 2 08/30/23 11:37 98.2 F 95 18 138/94 H 96 Room Air Anesthesia: General Mental Status: Awake Pain Control: Satisfactory Nausea/Vomiting: None Hydration: Adequate Anesthesia-Related Issues: No Anes. Related Issues
[2023-08-30 13:07] VITALS: BP 116/73; PULSE 59; RESP 16; TEMP 36.7; O2SAT 96
== END 2023-08-30 13:30 | disposition home or self-care (01) ==
PROVIDERS: PCP Nurse Practitioner Family; Visit Provider Internal Medicine Cardiovascular Disease
PROC: 5A2204Z Restoration of Cardiac Rhythm, Single (ICD-10-PCS; principal; 2023-08-30 12:00)
DX: I48.19 Other persistent atrial fibrillation (principal); I42.9 Cardiomyopathy, unspecified; I10 Essential (primary) hypertension; R53.83 Other fatigue; Z79.01 Long term (current) use of anticoagulants; Z79.84 Long term (current) use of oral hypoglycemic drugs; Z79.899 Other long term (current) drug therapy
CPT/HCPCS: 82947; 92960; 93005; J2371; J2704

== ENCOUNTER → 2023-08-30 09:57 | Outpatient (BNV) | payer OTHER, SELFPAY | PROVIDERS: PCP Nurse Practitioner Family; Visit Provider Internal Medicine Cardiovascular Disease | DX: I44.0 Atrioventricular block, first degree (principal); Z98.890 Other specified postprocedural states; I48.19 Other persistent atrial fibrillation; I42.9 Cardiomyopathy, unspecified | CPT/HCPCS: 92960; 93010 ==

== ENCOUNTER → 2023-09-27 07:48 | Outpatient (REF) | payer OTHER, SELFPAY ==
--- NOTE | ~2023-09-27 | NM_ITS ---
Lexiscan Myocardial perfusion study Indication: Shortness of breath, assess for coronary disease and ischemia Technique: The patient was brought in for a Lexiscan perfusion study on 09/27/2023 and was injected 0.4 mg of Lexiscan intravenously. Within a minute of this injection 45 mCi of sestamibi was given intravenously. Images were obtained using the SPECT gamma camera interlaced with the gating device. Images were obtained in supine position. Resting perfusion study was performed on 10/04/2023. Patient was administered 45 mCi of sestamibi intravenously at rest. Images were then obtained in supine position. Images were processed with the software and compared side to side in short axis, horizontal long axis and vertical long axis views. Total DLP 193mGy-cm. Findings: Raw acquisition reviewed. The stress perfusion study showed no significant perfusion abnormality. Both uncorrected as well as CT attenuation corrected images were reviewed. The gated study shows normal LV systolic function with calculated LVEF of > 70%. LV cavity is normal in size. The gated study shows normal wall thickening and contraction of segments. Resting study shows no significant perfusion abnormality. Gating at rest reveals normal wall motion with ejection fraction at 57%. The findings are consistent with no clear reversible or fixed perfusion abnormality. NM/NM myron perf SPECT rest & str Impression: 1. Myocardial perfusion imaging study shows probably normal myocardial perfusion. No definitive evidence of any ischemia or infarction. 2. Gated LVEF is 73% during stress and 57% during rest. 3. Transient ischemic dilatation not present. EKG component of the test reported separately.
--- NOTE | 2023-09-27 07:54 | CA_ITS ---
Acquisition Time: 2023-09-27 07:49:18 Total Exercise Time: 00:02:00 Test Indications: Dyspnea Medications: SEE H Protocol: LEXISCAN Max HR: 088 BPM 56% of Pred: 157 BPM Max BP: 128/078 mmHG Max Work Load: 1.0 METS Pharmacological stress test with Lexiscan injection while sitting and kicking his legs, without anginal symptoms, with isolated PACs, with normotensive response to injection, with nondiagnositic EKGs Nuclear images pending,. Test reviewed with Dr. Jones Referred By: Fredi Hart Overread By: Deana Rothman
== END ==
LOC: HO.CARD 07:48
PROVIDERS: PCP Nurse Practitioner Family; Visit Provider Internal Medicine Cardiovascular Disease
DX: I42.9 Cardiomyopathy, unspecified (principal)
CPT/HCPCS: 78452; 93017; A9500; J0280; J2785

== ENCOUNTER → 2023-09-27 07:54 | Outpatient (BNV) | payer OTHER, SELFPAY | PROVIDERS: PCP Nurse Practitioner Family; Visit Provider Nurse Practitioner | DX: R06.02 Shortness of breath (principal) | CPT/HCPCS: 78452; 93016; 93018 ==

== ENCOUNTER 2023-10-11 13:14 | Outpatient (AMB) | payer OTHER, SELFPAY ==
[2023-10-11 13:15] VITALS: BP 124/72; PULSE 100; BMI 46.4
--- NOTE | 2023-10-11 13:15 | A.OFFVIS_ITS ---
Vital Signs 10/11/23 13:15 Height 5 ft 8 in Weight 305 lb 1.916 oz BMI 46.4 BP 124/72 Blood Pressure Location Rt brachial Position Sitting Pulse 100 Pulse Source Monitor Intake Visit Reasons: 5 wk follow up(NS) De Icer Element Winder Required: No Allergies No Known Allergies Allergy (Verified 10/11/23 13:19) Medication List - Last Reconciled 10/11/23 by ELISABETH StarksC apixaban (Eliquis) 5 mg PO BID 90 days atorvastatin 20 mg PO BEDTIME cyanocobalamin (vitamin B-12) 500 mcg PO DAILY FreeStyle Lite Meter (blood-glucose meter) As directed NS FreeStyle Lite Strips (blood sugar diagnostic) Test blood sugar twice a day NS lancets (FreeStyle Lancets) Test blood sugar twice a day losartan 25 mg PO DAILY magnesium oxide 400 mg PO BID metformin ER 500 mg PO DAILY metoprolol succinate ER 50 mg (1/2 x 100 mg) PO BID omeprazole 40 mg PO DAILY sildenafil (Viagra) 100 mg PO DAILY PRN HPI HPI 5 wk follow up(NS): Details: Alvarez is a 63-year-old male with past medical history of obesity, hypertension, diabetes, newer finding of atrial fibrillation which was persistent. He was put on metoprolol and Eliquis then underwent cardioversion on 08/30/2023. Had a nuclear stress test and now presents for follow-up. Today he reports that he felt good for 2 days following the cardioversion then he went back to feeling mildly short of breath and fatigued. He says for him to have shortness of breath and fatigue are not new. These symptoms have been present for some time. He has no chest discomfort at rest or with activity. No PND, orthopnea. He does have some mild ankle edema which is not new. No palpitations, lightheadedness, presyncope, syncope, falls. Taking all meds as directed. No bleeding issues reported. [facility] Medical History Cardiomyopathy Atrial flutter Persistent atrial fibrillation Myalgia Morbid obesity Localized swelling of both lower legs Elevated ferritin Arthralgia Diverticulitis large intestine w/o perforation or abscess w/o bleeding HTN (hypertension) Polyarthralgia Hemochromatosis Surgical History History of shoulder surgery History of resection of terminal ileum Family History Father Substance use disorder Mother Breast cancer Substance use disorder Brother Substance use disorder Social History Household Members: Spouse Housing: House Are you a primary respiratory care practitioner to a significant other at home: No Do you presently have visiting nurse or other home services: No Alcohol intake: former Patient Tobacco Use Status: Never used Tobacco e-Cigarette/Vaping Use: Never Used Second Hand Smoke Exposure: No Advance Directives Date on File: 06/04/23 service: No Current occupational status: employed Current occupation: Works in [employer] Current occupational exposures/hazards: Yes Cognitive needs: No Hearing needs: No Vision needs: No Review of Systems Const All systems reviewed & are unremarkable except as noted in HPI and below ENT Denies dizziness Card Denies chest pain, Denies chest pain at rest, Denies chest pain with activity, Denies rapid heart rate, Denies pedal edema, Denies edema, Denies leg edema, Denies lightheadedness, Denies palpitations, Denies dyspnea, Reports dyspnea on exertion and Denies orthopnea Resp Denies cough, Denies dyspnea and Reports dyspnea on exertion GI Denies hematochezia and Denies change in stool character Musc Denies abnormal gait, Denies limited range of motion, Denies muscle cramps, Denies muscle weakness, Denies numbness, Denies radiating pain into limb, Denies stiffness and Denies tingling Neuro Denies abnormal gait, Denies dizziness, Denies numbness and Denies tingling Endo Denies palpitations Physical Exam Vital Signs: Last Vital Signs Pulse 100 10/11/23 13:15 BP 124/72 10/11/23 13:15 BMI result Body Mass Index 46.4 Const General: cooperative, healthy appearing, comfortable and no acute distress Orientation/consciousness: patient oriented x3 Neck Neck: Yes normal visual inspection and Yes no JVD Resp Effort & Inspection: normal respiratory effort Auscultation: clear to auscultation bilaterally, no crackles, no rales, no rhonchi and no wheezes Cardio Jugular venous distension: no JVD Rate: regular rate Rhythm: regular rhythm Heart sounds: S1 normal heart sound present, S2 normal heart sound present, no murmurs and no rubs Neuro General: patient oriented x3 Extrem General: Yes normal to inspection and No no pedal edema Psych Appearance: grossly normal Mental Status: mental status grossly normal Speech and movement: Normal speech and movement present Office Procedures EKG Details: Today, read by me, sinus rhythm, episode of atrial tach seen on tracing, 11 beats, EKG rate 100 which appears to be average of the atrial tach and sinus rates. [id number], Complete Assessment & Plan Assessment & Plan (1) Persistent atrial fibrillation: Code(s): I48.19 - Other persistent atrial fibrillation Category: Medical Plan: New diagnosis of atrial fibrillation 05/20/2023 at PCP office. He was sent to the ER for evaluation and noted to be tachycardic. He was started on rate slowing agents. He was also put on Eliquis for anticoagulation. An echocardiogram showed EF 40-45%, mild LVH. On office visit follow-up he reported shortness of breath with activity and was noted to have ongoing persistent AFib. He then underwent a cardioversion on 08/30/2023 with successful conversion to normal sinus rhythm. Was continued on metoprolol XL 50 mg b.i.d.. Today he reports that he felt good for 2 days following the cardioversion then he went back to having some shortness of breath and fatigue. Overall he says the symptoms have been longstanding and not new for him. Unclear if they are related to his atrial arrhythmia or not. EKG done today showing sinus rhythm with an 11 beat run of atrial tach seen on EKG tracing. He has not noticing any heart palpitations. Reviewed with Dr. Hart. Will start him on Multaq 400 mg b.i.d.. At present continue current metoprolol. Office EKG in 1 week. May need to reduce metoprolol dose if heart rate is running low. Informed him to call if he has any lightheadedness. Continue Eliquis without interruption. Holter monitor in 2-3 weeks. Once heart rate and rhythm are controlled will plan for a repeat echocardiogram. He did have a nuclear stress test on 10/04/2023 which was normal. Office visit in 4-6 weeks, sooner if needed. (2) Atrial tachycardia: Code(s): I47.19 - Other supraventricular tachycardia Category: Medical Plan: As above (3) Cardiomyopathy: Code(s): I42.9 - Cardiomyopathy, unspecified Category: Medical Plan: As above. On exam today he has no clinical signs of heart failure. Plan Time spent on chart review, documentation, interview and assessment Orders: Orders ECG 3 day holter monitor 10/28/23 I48.19 - Other persistent atrial fibrillation Medications: New dronedarone (Multaq) must administer with a meal/food 400 mg PO BID 60 tabs 3RF Coding Level of Care Code Est Pt Level 4 (72976) Diagnoses Persistent atrial fibrillation I48.19 Atrial tachycardia I47.19 Cardiomyopathy I42.9 CPT Codes EKG - CPT: [id number], Complete ([id number]) Time Spent (min) 28
== END 2023-10-11 14:10 | disposition home or self-care (01) ==
PROVIDERS: PCP Nurse Practitioner Family; Visit Provider Nurse Practitioner Family
DX: I48.19 Other persistent atrial fibrillation (principal); I47.19 Other supraventricular tachycardia; I42.9 Cardiomyopathy, unspecified
CPT/HCPCS: 93010; 99214

== ENCOUNTER → 2023-10-11 13:14 | Outpatient (BNVA) | payer OTHER, SELFPAY | PROVIDERS: PCP Nurse Practitioner Family; Visit Provider Nurse Practitioner Family | DX: I10 Essential (primary) hypertension (principal); I48.19 Other persistent atrial fibrillation; I47.19 Other supraventricular tachycardia; I42.9 Cardiomyopathy, unspecified; E66.01 Morbid (severe) obesity due to excess calories | CPT/HCPCS: 93005 ==

== ENCOUNTER → 2023-10-18 09:06 | Outpatient (REF) | payer OTHER, SELFPAY ==
--- NOTE | 2023-10-18 09:08 | HM_ITS ---
Conclusion: 1. Patient was monitored for total period of 2 days and 7 hours 2. Baseline was normal sinus rhythm with average heart of 52 beats per minute 3. Frequent sinus bradycardia noted with 88% of time heart rate below 60 beats per minute without significant pauses 4. Occasional PACs noted with overall 20 supraventricular tachycardia episode noted, longest lasting 16 beats and the fastest at 149 beats per minute 5. No patient reported events MTDD
== END ==
LOC: HO.CARD 09:06
PROVIDERS: PCP Nurse Practitioner Family; Visit Provider Nurse Practitioner Family
DX: I48.19 Other persistent atrial fibrillation (principal)
CPT/HCPCS: 93242

== ENCOUNTER 2023-10-18 09:24 | Outpatient (AMB) | payer OTHER, SELFPAY ==
--- NOTE | 2023-10-18 09:35 | AM.OFFVISNUR ---
Intake Intake Visit Reasons: ekg Allergies No Known Allergies Allergy (Verified 10/11/23 13:19) Coding Assessment & Plan Assessment & Plan Orders: Orders AMB EKG-In Office Today I48.19 - Other persistent atrial fibrillation
== END 2023-10-18 09:34 | disposition home or self-care (01) ==
PROVIDERS: PCP Nurse Practitioner Family; Visit Provider Nurse Practitioner Family
DX: R00.1 Bradycardia, unspecified (principal)
CPT/HCPCS: 93244

== ENCOUNTER 2023-11-05 13:50 | Outpatient (AMB) | payer OTHER, SELFPAY ==
--- NOTE | 2023-11-05 13:57 | A.OFFPC_ITS ---
Vital Signs 11/05/23 13:59 Height 5 ft 8 in Weight 304 lb BMI 46.2 BP 126/70 Blood Pressure Location Rt brachial Position Sitting Pulse 58 Pulse Source Pulse Oximeter Pulse Oximetry (%) 98 Oxygen Delivery Method Room Air Intake Visit Reasons: 3M F/U DM Intake Note: Patient here for DM f/u Allergies No Known Allergies Allergy (Verified 11/05/23 17:05) Medication List - Last Reconciled 11/05/23 by MARK Rodriguez apixaban (Eliquis) 5 mg PO BID 90 days atorvastatin 20 mg PO BEDTIME cyanocobalamin (vitamin B-12) 500 mcg PO DAILY dronedarone (Multaq) 400 mg PO BID FreeStyle Lite Meter (blood-glucose meter) As directed NS FreeStyle Lite Strips (blood sugar diagnostic) Test blood sugar twice a day NS lancets (FreeStyle Lancets) Test blood sugar twice a day losartan 25 mg PO DAILY magnesium oxide 400 mg PO BID metformin ER 500 mg PO DAILY metoprolol succinate ER 50 mg PO DAILY omeprazole 40 mg PO DAILY sildenafil (Viagra) 100 mg PO DAILY PRN Tobacco use date assessed: 06/10/23 Dental Screening Dental Screen Date: 06/10/23 HPI 3M F/U DM HPI Details Pt is a diabetic, on an ARB and a statin. A1C in office today is 6.5. Microalbumin is up to date. Denies polyuria, polydipsia, does report neuropathy. Pt denies any signs and symptoms of hypoglycemia and does know how to correct it. hx of hemochromatosis, has not followed up with hematology in quite some time. Will check a ferritin/iron. Hx of b12 def.. will recheck [facility] Medical History Cardiomyopathy Atrial flutter Persistent atrial fibrillation Myalgia Morbid obesity Localized swelling of both lower legs Elevated ferritin Arthralgia Diverticulitis large intestine w/o perforation or abscess w/o bleeding HTN (hypertension) Polyarthralgia Hemochromatosis Surgical History History of shoulder surgery History of resection of terminal ileum Family History Father Substance use disorder Mother Breast cancer Substance use disorder Brother Substance use disorder Social History (Reviewed 11/05/23 @ 17:05 by Yair Angel 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 [facility] Household Members: Spouse Housing: House Are you a primary anesthesiologist and critical care to a significant other at home: No Do you presently have visiting nurse or other home services: No Alcohol intake: former Patient Tobacco Use Status: Never used Tobacco e-Cigarette/Vaping Use: Never Used Second Hand Smoke Exposure: No Advance Directives Date on File: 06/04/23 service: No Current occupational status: employed Current occupation: Works in [employer] Current occupational exposures/hazards: Yes Cognitive needs: No Hearing needs: No Vision needs: No Questionnaire PHQ-9 Over the last 2 weeks, how often have you been bothered by any of the following problems? 07664 - PHQ-9 Billing: Patient declined-do not bill Source: Developed by Drs. Brennon Rizvi, Cristina Albrecht, Qasim pritchard nd colleagues, with an educational yolanda from [employer]. Thrive Questionnaire Date Thrive assessed: 06/05/23 ZEHRA-7 AMB Questionnaire ZEHRA-7 Date ZEHRA - 7 assessed: 05/20/23 Source: Developed by Drs. Brennon Rizvi, Cristina Albrecht, Qasim Westfall and colleagues, with an educational yolanda from [employer]. ZEHRA-7 Assessment Billing ZEHRA-7 Assessment Tool: pt declined-do not bill Review of Systems Const Reports as per HPI Physical exam (Primary Care) Vital Signs: Last Vital Signs Pulse 58 11/05/23 13:59 BP 126/70 11/05/23 13:59 Pulse Ox 98 11/05/23 13:59 Oxygen Delivery Method Room Air 11/05/23 13:59 BMI result Body Mass Index 46.2 Tobacco/Smoking Status: Tobacco use Status Tobacco use date assessed 06/10/23 11/05/23 13:58 Patient Tobacco Use Status Never used Tobacco 11/05/23 13:58 e-Cigarette/Vaping Use Never Used 11/05/23 13:58 Thrive Assessment: Date of Thrive Assessment Date Thrive assessed 06/05/23 11/05/23 13:58 Const General: cooperative Nutritional Appearance: obese morbidly obese Orientation/consciousness: patient oriented x3 Resp Effort & Inspection: normal respiratory effort Auscultation: clear to auscultation bilaterally Cardio Rate: regular rate Rhythm: regular rhythm Heart sounds: S1 normal heart sound present, S2 normal heart sound present and no murmurs Neuro General: patient oriented x3 Extrem Other: unable to feel monofilament to right toes. minimal sensation to left toes with use of monofilament Psych Appearance: grossly normal Mental Status: mental status grossly normal Speech and movement: Normal speech and movement present Affect: normal affect Attitude: cooperative Thought process: Normal thought process present Thought content: Normal thought content present Insight: Good insight present (Psych) Judgement: Good judgement present (Psych) Results AMB Hemoglobin A1c AMB Hemoglobin A1c 6.5 % Last Edit by RAY Ga on 11/05/23 14 :18 Immunizations pneumoc 20-leena conj-dip cr(PF) 0.5 mL IM syringe Performing Provider: MARK Rodriguez Performing Location: [facility] Administered by: RAY Ga on 11/05/23 14:26 Dose Route Admin Location Dispensed Lot Number Expiration Date NDC 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 0.5 mL IM Right Deltoid 0.5 mL [id number] 12/04/24 [id number] Creator [employer] VIS Given Date VIS Provided VIS Publication Date 11/05/23 Single Vaccine 21 Eligibility Eligibility Date Funding Source Not VFC Eligible 11/05/23 Private Results Reviewed Results Reviewed: Laboratory Last Values Hgb A1c (Clinic) 6.5 % (4.0-6.0) H 11/05/23 14:17 Assessment and Plan Assessment & Plan (1) Hemochromatosis: Code(s): E83.119 - Hemochromatosis, unspecified Qualifiers: Hemochromatosis type: unspecified Qualified Code(s): E83.119 - Hemochromatosis, unspecified Plan: will check ferritin (2) B12 deficiency: Code(s): E53.8 - Deficiency of other specified B group vitamins (3) Diabetes: Code(s): E11.9 - Type 2 diabetes mellitus without complications Plan: controlled currently, pt is checking his sugars twice a day. Plan The patient agreed to the use of a medical records supervisor for this encounter. Scribed for MRAK Rey by Leilani Jha medical records supervisor, on 11/05/2023 at 14:05 EST. Orders: Orders Ferritin Today E53.8 - Deficiency of other specified B group vitamins, E83.119 - Hemochromatosis, unspecified Pneumococcal 20 Immunization Today Z23 - Encounter for immunization IRON PROFILE Today E11.9 - Type 2 diabetes mellitus without complications, E83.119 - Hemochromatosis, unspecified Comprehensive [place]. Panel Fast Today E11.9 - Type 2 diabetes mellitus without complications Lipid Panel Today E11.9 - Type 2 diabetes mellitus without complications AMB Hemoglobin A1c Today Z13.9 - Encounter for screening, unspecified Vitamin B12 and Folate Today E53.8 - Deficiency of other specified B group vitamins, E83.119 - Hemochromatosis, unspecified TSH reflex Free T4 Today E11.9 - Type 2 diabetes mellitus without complications Complete Blood Count Auto Diff Today E11.9 - Type 2 diabetes mellitus without complications UA CC w/rflx Micro + Cult Today E11.9 - Type 2 diabetes mellitus without complications Medications: Refilled dronedarone (Multaq) must administer with a meal/food 400 mg PO BID 60 tabs 3RF dronedarone (Multaq) must administer with a meal/food 400 mg PO BID 60 tabs 3RF Coding Level of Care Code Est Pt Level 3 (89793) Diagnoses Hemochromatosis, unspecified hemochromatosis type E83.119 Hemochromatosis type: unspecified B12 deficiency E53.8 Diabetes E11.9
[2023-11-05 13:59] VITALS: BP 126/70; PULSE 58; O2SAT 98; BMI 46.2
== END 2023-11-05 14:28 | disposition home or self-care (01) ==
PROVIDERS: PCP Nurse Practitioner Family; Visit Provider Nurse Practitioner Family
DX: E83.119 Hemochromatosis, unspecified (principal); E53.8 Deficiency of other specified B group vitamins; E11.9 Type 2 diabetes mellitus without complications; Z23 Encounter for immunization
CPT/HCPCS: 83036; 90471; 90677; 99214

== ENCOUNTER 2023-11-22 08:08 | Outpatient (AMB) | payer OTHER, SELFPAY ==
[2023-11-22 08:16] VITALS: BP 114/62; PULSE 53; BMI 46.7
--- NOTE | 2023-11-22 08:16 | A.OFFVIS_ITS ---
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 Required: No Allergies No Known Allergies Allergy (Verified 11/22/23 08:18) Medication List - Last Reconciled 11/22/23 by ELISABETH StarksC apixaban (Eliquis) 5 mg PO BID 90 days atorvastatin 20 mg PO BEDTIME cyanocobalamin (vitamin B-12) 500 mcg PO DAILY dronedarone (Multaq) 400 mg PO BID FreeStyle Lite Meter (blood-glucose meter) As directed NS FreeStyle Lite Strips (blood sugar diagnostic) Test blood sugar twice a day NS lancets (FreeStyle Lancets) Test blood sugar twice a day losartan 25 mg PO DAILY magnesium oxide 400 mg PO BID metformin ER 500 mg PO DAILY metoprolol succinate ER 50 mg PO DAILY omeprazole 40 mg PO DAILY sildenafil (Viagra) 100 mg PO DAILY PRN HPI HPI f/up-holter: Details: Alvarez is a 63-year-old male with past medical history of obesity, hypertension, diabetes, newer finding of atrial fibrillation, with cardioversion, then started on Multaq. Holter monitor showed SB and metoprolol dose was reduced. He now presents for follow up. Today he reports that he feeling good since the start of Multaq. No issues with heart palpitations. He does have some chornic mild sob with exertion which is unchanged. He has no chest discomfort at rest or with activity. No PND, orthopnea. He does have some mild ankle edema which is not new. No palpitations, lightheadedness, presyncope, syncope, falls. Taking all meds as directed. No bleeding issues reported. 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 Good activity tolerance. [facility] Medical History Cardiomyopathy Atrial flutter Persistent atrial fibrillation Myalgia Morbid obesity Localized swelling of both lower legs Elevated ferritin Arthralgia Diverticulitis large intestine w/o perforation or abscess w/o bleeding HTN (hypertension) Polyarthralgia Hemochromatosis Surgical History History of shoulder surgery History of resection of terminal ileum Family History Father Substance use disorder Mother Breast cancer Substance use disorder Brother Substance use disorder Social History Household Members: Spouse Housing: House Are you a primary regular senior care provider to a significant other at home: No Do you presently have visiting nurse or other home services: No Alcohol intake: former Patient Tobacco Use Status: Never used Tobacco e-Cigarette/Vaping Use: Never Used Second Hand Smoke Exposure: No Advance Directives Date on File: 06/04/23 service: No Current occupational status: employed Current occupation: Works in [employer] Current occupational exposures/hazards: Yes Cognitive needs: No Hearing needs: No Vision needs: No Review of Systems Const All systems reviewed & are unremarkable except as noted in HPI and below ENT Denies dizziness Card Denies chest pain, Denies chest pain at rest, Denies chest pain with activity, Denies rapid heart rate, Denies pedal edema, Denies edema, Denies leg edema, Denies lightheadedness, Denies palpitations, Denies dyspnea, Denies dyspnea on exertion and Denies orthopnea Resp Denies cough, Denies dyspnea and Denies dyspnea on exertion GI Denies hematochezia and Denies change in stool character Musc Denies abnormal gait, Denies limited range of motion, Denies muscle cramps, Denies muscle weakness, Denies numbness, Denies radiating pain into limb, Denies stiffness and Denies tingling Neuro Denies abnormal gait, Denies dizziness, Denies numbness and Denies tingling Endo Denies palpitations Physical Exam Vital Signs: Last Vital Signs Pulse 53 11/22/23 08:16 BP 114/62 11/22/23 08:16 BMI result Body Mass Index 46.7 Const General: cooperative, healthy appearing, comfortable and no acute distress Orientation/consciousness: patient oriented x3 Neck Neck: Yes normal visual inspection and Yes no JVD Resp Effort & Inspection: normal respiratory effort Auscultation: clear to auscultation bilaterally, no crackles, no rales, no rhonchi and no wheezes Cardio Jugular venous distension: no JVD Rate: regular rate Rhythm: regular rhythm Heart sounds: S1 normal heart sound present, S2 normal heart sound present, no murmurs and no rubs Neuro General: patient oriented x3 Extrem General: Yes normal to inspection and No no pedal edema Psych Appearance: grossly normal Mental Status: mental status grossly normal Speech and movement: Normal speech and movement present Office Procedures EKG Details: Today, read by me, SB, cant exclude prior anterior infarct, rate 53, QTc 405 ms [id number], Complete Assessment & Plan Assessment & Plan (1) Persistent atrial fibrillation: Code(s): I48.19 - Other persistent atrial fibrillation Category: Medical Plan: New diagnosis of atrial fibrillation 05/20/2023 at PCP office. He was sent to the ER for evaluation and was started on rate slowing agents. He was also put on Eliquis for anticoagulation. An echocardiogram showed EF 40-45%, mild LVH. On office visit follow-up he reported shortness of breath with activity and was noted to have ongoing persistent AFib. He then underwent a cardioversion on 08/30/2023 with successful conversion to normal sinus rhythm. Was continued on metoprolol XL 50 mg b.i.d.. On last visit he reported some shortness of breath and fatigue, which was not a new symptom for him. It was unclear if they are related to his atrial arrhythmia or not. EKG done that day showed sinus rhythm with an 11 beat run of atrial tach seen on EKG tracing. He had not noticed any heart palpitations. He was started on Multaq 400 mg b.i.d. in addition to the Metoprolol. Holter monitor done on 10/18/23 for 2 days shows SB, rate average 52, 88% of time heart rate < 60, short runs of SVT. His Metoprolol dose was reduced to 50mg daily. Today he reports feeling good overall. He checks his pulse at time and has seen it as low as 48. No palpitations. EKG today SB, rate 53, QTc 405 ms. Will reduce Metoprolol xl to 25mg daily. He will call office if pulse still hitting 40s at home. Office EKG in 3 mo. Card f/u 6 mo, sooner if needed. Will update limited echo now that heart rate and rhythm controlled. Plan to call him with results. (2) Atrial tachycardia: Code(s): I47.19 - Other supraventricular tachycardia Category: Medical Plan: As above (3) Cardiomyopathy: Code(s): I42.9 - Cardiomyopathy, unspecified Category: Medical Plan: As above. On exam today he has no clinical signs of heart failure. Plan Time spent on chart review, documentation, interview and assessment Orders: Orders CA Echo Limited Today I42.9 - Cardiomyopathy, unspecified Medications: New metoprolol succinate ER dose reduced 25 mg PO DAILY 90 tabs 1RF Discontinued metoprolol succinate ER dose reduced Discontinued Reason: Doctor's Order 50 mg PO DAILY 90 tabs 1RF Coding Level of Care Code Est Pt Level 4 (03641) Diagnoses Persistent atrial fibrillation I48.19 Atrial tachycardia I47.19 Cardiomyopathy I42.9 CPT Codes EKG - CPT: 62426-[id number], Complete ([id number]) Time Spent (min) 28
== END 2023-11-22 08:41 | disposition home or self-care (01) ==
PROVIDERS: PCP Nurse Practitioner Family; Visit Provider Nurse Practitioner Family
DX: I48.19 Other persistent atrial fibrillation (principal); I47.19 Other supraventricular tachycardia; I42.9 Cardiomyopathy, unspecified
CPT/HCPCS: 93010; 99214

== ENCOUNTER → 2023-11-22 08:08 | Outpatient (BNVA) | payer OTHER, SELFPAY | PROVIDERS: PCP Nurse Practitioner Family; Visit Provider Nurse Practitioner Family | DX: I48.19 Other persistent atrial fibrillation (principal); I47.19 Other supraventricular tachycardia; I42.9 Cardiomyopathy, unspecified; Z79.01 Long term (current) use of anticoagulants | CPT/HCPCS: 93005 ==

== ENCOUNTER → 2023-12-13 08:49 | Outpatient (REF) | payer OTHER, SELFPAY ==
--- NOTE | 2023-12-13 08:51 | CA_ITS ---
Transthoracic Echocardiogram Patient (Last, First, Middle): Alvarez Ochoa F Gender: Male Date of : 1960 Age: 63 Procedure Date: 12/13/2023 Procedure Type: Transthoracic Echocardiogram Location: OP Height: 172.72 cm Weight: 138.35 kg BSA: 2.45 m2 Heart Rate: 59 bpm BP: 130 / 72 mmHg Design Painter: TO Referring MD: Ruby Fontenot LOAD MIXERCameron Sleeper Cutter: Fredi Hart MD Symptoms: I42.9 - Cardiomyopathy, unspecified Study Quality: Technically Difficult/Contrast ECG Rhythm: Bradycardia Conclusions: - Normal LV ejection fraction 55-60% Findings Procedure Information Contrast agent, definity, is being given per protocol without apparent complications. The study quality is limited by patients body habitus. Left Ventricle Normal left ventricular size and systolic function. There is mildly increased left ventricular wall thickness. The visually estimated ejection fraction is between 55-60%. Spectral Doppler is indicative of a normal filling pattern. Prior Study Comparison Changes noted compared to prior study dated: 06/05/2023. LV systolic function is normal. Measurements 2D Linear Measurements IVSd: 1.36 0.6-0.9/0.6-1.0 cm LVIDd: 5.09 3.9-5.3/4.2-5.9 cm LVIDd Index: 2.08 2.4-3.2/2.2-3.1 cm/m2 LVIDs: 3.52 2.0-3.6 cm LVPWd: 1.12 0.7-1.1 cm LV Mass: 314.00 67-162/88-224 g LV Mass Index: 128.16 43-95/49-115 g/m2 LVOT Diam: 2.30 3.0+(-)1.3 cm 2D Systolic Function EF 4C: 59.10 >55% Mitral Valve MV Pk E: 0.72 MV PK A: 0.61 MV Decel Time: 235.00 E/A: 1.20 E'Lateral: 10.20 E'Medial: 5.77 E/E' Med: 12.50 E/E' Lat: 7.10 PHT: 69.00 MVA PHT: 3.19 Decel Frio: 3.08 LVOT LVOT Pk Yousuf: 1.53 LVOT Mn Yousuf: 0.96 LVOT VTI: 0.30 LVOT Pk Grad: 9.00 LVOT Mn Grad: 5.00 LVOT Diam: 2.30 LVOT Area: 4.15 Diastolic Function MV Pk E: 0.72 MV Pk A: 0.61 E/A: 1.20 E'Medial: 5.77 E/E' Med: 12.50 E' Laterial: 10.20 E/E' Lat: 7.10 Updated in Other Vendor System with Status of Final Fredi Hart MD electronically signed on 12/14/2023 2:02:16 PM with status of Final
== END ==
LOC: HO.CARD 08:49
PROVIDERS: PCP Nurse Practitioner Family; Visit Provider Nurse Practitioner Family
DX: I42.9 Cardiomyopathy, unspecified (principal)
CPT/HCPCS: 93308; Q9957

== ENCOUNTER → 2023-12-13 08:51 | Outpatient (BNV) | payer OTHER, SELFPAY | PROVIDERS: PCP Nurse Practitioner Family; Visit Provider Internal Medicine Cardiovascular Disease | DX: I42.9 Cardiomyopathy, unspecified (principal) | CPT/HCPCS: 93308; 93321; 93325 ==

== ENCOUNTER → 2024-02-21 08:20 | Outpatient (BNVA) | payer OTHER, SELFPAY | PROVIDERS: PCP Nurse Practitioner Family; Visit Provider Nurse Practitioner Family ==

== ENCOUNTER 2024-07-09 14:05 | Outpatient (AMB) | payer OTHER, SELFPAY ==
[2024-07-09 14:07] VITALS: BP 132/74; PULSE 75; RESP 18; O2SAT 94; BMI 48.3
--- NOTE | 2024-07-09 14:07 | MHC.PC.OV ---
Vital Signs 07/09/24 14:07 Height 5 ft 8 in Weight 317 lb 6 oz BMI 48.3 BP 132/74 Blood Pressure Location Rt brachial Position Sitting Respiration 18 Pulse 75 Pulse Source Pulse Oximeter Pulse Oximetry (%) 94 Oxygen Delivery Method Room Air Intake Visit Reasons: PE Intake Note: Pt is here today for her annual physical Allergies No Known Allergies Allergy (Verified 07/09/24 14:08) Medication List - Last Reconciled 07/09/24 by Yair Angel, PROGRESSIVE CARE UNIT REGISTERED NURSE- apixaban (Eliquis) 5 mg PO BID 90 days atorvastatin 20 mg PO BEDTIME cyanocobalamin (vitamin B-12) 500 mcg PO DAILY dronedarone (Multaq) 400 mg PO BID FreeStyle Lite Meter (blood-glucose meter) As directed NS FreeStyle Lite Strips (blood sugar diagnostic) Test blood sugar twice a day NS lancets (FreeStyle Lancets) Test blood sugar twice a day losartan 25 mg PO DAILY magnesium oxide 400 mg PO BID metformin ER 500 mg PO DAILY metoprolol succinate ER 25 mg PO DAILY omeprazole 40 mg PO DAILY sildenafil (Viagra) 100 mg PO DAILY PRN Tobacco use date assessed: 07/09/24 Fall risk assessment: No Falls in past year Last assessed Fall Risk: 07/09/24 Dental Screening Dental Screen Date: 07/09/24 Did you have a dental visit in the last 12 months?: Yes Did you have a dental problem in the last 6 months where you did not have access to dental care?: No Was dental information given to patient?: Patient has dentist HPI PE HPI Details History of Present Illness The patient is a 64-year-old male presenting for the follow-up of multiple chronic conditions including diabetes mellitus, atrial fibrillation, and obesity. His diabetes management has achieved an A1c of 6.9, and there is a plan to introduce semaglutide. He has not pursued recent cardiology follow-up for atrial fibrillation but reports no active cardiac symptoms. Regarding asthma, the patient acknowledges the use of inhalers but found them ineffective and has opted not to use them currently, experiencing only occasional wheezing. His neuropathy requires self-monitoring without specific recent interventions. His elevated ferritin is associated with hemochromatosis, and the lack of recent hematology follow-up is noted. Additionally, his history of vitamin B12 deficiency indicates that monitoring might be necessary, although he reports regular foot inspections. Health Maintenance - Type 2 Diabetes Mellitus management with A1c at 6.9% and the plan to start ozempic. - The patient denies current or increased symptoms typically associated with cardiovascular issues. - Gastrointestinal screening is up to date. -refused PATIENCE today Social History - No details regarding employment, housing, family status, or substance use were discussed. Review of Systems - Respiratory: Denies chest pain, reports wheezing, denies shortness of breath. - Gastrointestinal: Denies blood in stool, constipation, diarrhea, abdominal pain. - Psychological: Denies suicidal ideation, denies homicidal ideation. - Genitourinary: Denies any urinary symptoms. Physical Exam General: Cooperative, healthy appearing, comfortable, no acute distress and well developed, but morbidly obese Orientation: Patient oriented x3 Limitations: No limitations Head: Normal to inspection Ears: Hearing grossly normal bilaterally Nose: Normal external nose present Face and sinus: Normal facial exam Eyes: Appearance normal, both eyes and all related structures Neck: Normal visual inspection and Yes full ROM Respiratory: Normal respiratory effort and able to speak in complete sentences. Clear to auscultation bilaterally with some faint scattered wheezes Cardiovascular: Regular rate and rhythm. Normal S1 and S2 GI: Normal to inspection. Soft to palpation and nontender Skin: No rashes or lesions noted Neuro: Patient oriented x3, reports some neuropathy to feet, refused foot exam today Extremities: +1 pitting edema to bilateral extremities, otherwise normal to inspection Results - Labs: Hemoglobin A1c at 6.9%. Plan The patient will start on a low-dose of ozempic to improve glycemic control. Cardiovascular monitoring will continue with plans to re-engage with cardiology due to his atrial fibrillation history. Respiratory symptoms are minor and stable, thus no changes in asthma management since inhalers have not been effective. His peripheral neuropathy management includes ongoing self-monitoring. Laboratory follow-ups for elevated ferritin and vitamin levels are required considering his previous conditions of hemochromatosis and deficiency. Overall conservation of current regimen and further specialist follow-up are anticipated. Discussion Notes During our discussion, I outlined the importance of managing his diabetes with semaglutide and maintaining A1c targets to minimize complications. He was informed about the potential side effects and benefits of semaglutide, and consented. I emphasized the need for cardiology follow-up due to atrial fibrillation history, though reassured him given his absence of symptoms. In terms of asthma, since inhalers were not helpful, I did not recommend further action unless his symptoms worsen. I highlighted the necessity of regular monitoring of his feet due to neuropathy and suggested regular checks of ferritin and B12 levels due to previous elevations and deficiencies. Future reviews with specialists were advised for enhanced management of his conditions. Patient Instructions - Start on a low dose of Ozempic as discussed. 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 - Continue regular monitoring of feet for neuropathy. - Have follow-up labs for ferritin and vitamin B12 levels. - Report any new symptoms to our office, especially cardiac or respiratory. [facility] Medical History Elevated ferritin Cardiomyopathy Atrial flutter Persistent atrial fibrillation Myalgia Morbid obesity Localized swelling of both lower legs Arthralgia Diverticulitis large intestine w/o perforation or abscess w/o bleeding HTN (hypertension) Polyarthralgia Hemochromatosis Surgical History History of shoulder surgery History of resection of terminal ileum Family History Father Substance use disorder Mother Breast cancer Substance use disorder Brother Substance use disorder Social History Household Members: Spouse Housing: House Are you a primary manager primary care to a significant other at home: No Do you presently have visiting nurse or other home services: No Alcohol intake: former Patient Tobacco Use Status: Never used Tobacco e-Cigarette/Vaping Use: Never Used Second Hand Smoke Exposure: No Advance Directives Date on File: 06/04/23 service: No Current occupational status: employed Current occupation: Works in [employer] Current occupational exposures/hazards: Yes Cognitive needs: No Hearing needs: No Vision needs: No Questionnaire PHQ-9 Over the last 2 weeks, how often have you been bothered by any of the following problems? 1. Little interest or pleasure in doing things: not at all 2. Feeling down, depressed, or hopeless: not at all 3. Trouble falling or staying asleep, or sleeping too much: not at all 4. Feeling tired or having little energy: nearly every day 5. Poor appetite or overeating: not at all 6. Feeling bad about yourself - or that you are a failure or have let yourself or your family down: not at all 7. Trouble concentrating on things, such as reading the newspaper or watching television: not at all 8. Moving or speaking so slowly that other people could have noticed. Or the opposite - being so fidgety or restless that you have been moving around a lot more than usual: not at all 9. Thoughts that you would be better off or of hurting yourself in some way: not at all Total score: 3 Depression Screening Interpretation: Negative Depression Screening Done: Yes 28483 - PHQ-9 Billing: Yes Source: Developed by Drs. Brennon Rizvi, Cristina Albrecht, Qasim Westfall and colleagues, with an educational yolanda from [employer] Thrive Questionnaire Date Thrive assessed: 07/06/24 I am a: Patient What is your living situation today?: I have a steady place to live Within the past 12 months, did the food you bought not last and you didn't have the money to get more?: Never true Within the past 12 months, did you worry whether your food would run out before you got money to buy more?: Never true Do you have trouble paying for medicines?: No Do you have trouble getting transportation to medical appointments?: No Do you have trouble paying your heating and electricity bill?: No Do you have trouble taking care of your child, family member or friend?: No Do you have trouble with day-to-day activities such as bathing, preparing meals, shopping, managing finances, etc.?: No Are you currently unemployed and looking for a job?: No Are you interested in more education?: No Please select the resources that you would like help with: None Currently or been in a relationship where the following occur: No concerns reported THRIVE Score: 0 AUDIT C Alcohol Use Questionnaire (AUDIT-C) 1. How often do you have a drink containing alcohol?: Never Total Score: 0 ZEHRA-7 AMB Questionnaire ZEHRA-7 Date ZEHRA - 7 assessed: 05/20/23 Feeling nervous, anxious, or on edge: 0 = Not at all Not being able to stop or control worryin = Not at all Worrying too much about different things: 0 = Not at all Trouble relaxin = Not at all Being so restless that it is hard to sit still: 0 = Not at all Becoming easily annoyed or irritable: 0 = Not at all Feeling afraid as if something awful might happen: 0 = Not at all Total ZEHRA-7 score (0-4 normal; 5-9 mild; 10-14 moderate; 15-21 severe): 0 Source: Developed by Drs. Brennon Rizvi, Cristina Albrecht, Qasim Westfall and colleagues, with an educational yolanda from [employer] ZEHRA-7 Assessment Billing ZEHRA-7 Assessment Tool: ZEHRA-7 Assessment 55076 Physical exam (Primary Care) Vital Signs: Last Vital Signs Pulse 75 07/09/24 14:07 Resp 18 07/09/24 14:07 BP 132/74 07/09/24 14:07 Pulse Ox 94 07/09/24 14:07 Oxygen Delivery Method Room Air 07/09/24 14:07 BMI result Body Mass Index 48.3 Tobacco/Smoking Status: Tobacco use Status Tobacco use date assessed 07/09/24 07/09/24 14:11 Patient Tobacco Use Status Never used Tobacco 07/09/24 14:11 e-Cigarette/Vaping Use Never Used 07/09/24 14:11 PHQ-9: PHQ-9 Score PHQ-9: Total score 3 07/09/24 15:01 Depression Screening Interpretation: Negative Thrive Assessment: Date of Thrive Assessment Date Thrive assessed 07/06/24 07/09/24 14:11 Currently or been in a relationship where the following occur: No concerns reported Coding Level of Care Code Est Pt Prev Care 40-64y(32210) Diagnoses Physical exam Z00.00 Elevated ferritin R79.89 B12 deficiency E53.8 Screening PSA (prostate specific antigen) Z12.5 Diabetes E11.9 Morbid obesity E66.01 Additional Codes PHQ-9 - 38175 - PHQ-9 Billing: Yes ([id number]) ZEHRA-7 Assessment Billing - ZEHRA-7 Assessment Tool: ZEHRA-7 Assessment 55947 ([id number]) Assessment & Plan Assessment & Plan (1) Physical exam: Code(s): Z00.00 - Encounter for general adult medical examination without abnormal findings Category: Medical (2) Elevated ferritin: Code(s): R79.89 - Other specified abnormal findings of blood chemistry Category: Medical (3) B12 deficiency: Code(s): E53.8 - Deficiency of other specified B group vitamins Category: Medical (4) Screening PSA (prostate specific antigen): Code(s): Z12.5 - Encounter for screening for malignant neoplasm of prostate Category: Medical (5) Diabetes: Code(s): E11.9 - Type 2 diabetes mellitus without complications Category: Medical (6) Morbid obesity: Code(s): E66.01 - Morbid (severe) obesity due to excess calories Category: Medical Plan . Orders: Orders IRON PROFILE Today R79.89 - Other specified abnormal findings of blood chemistry Vitamin B12 and Folate Today E53.8 - Deficiency of other specified B group vitamins Prostate Specific Antigen Scr Today Z12.5 - Encounter for screening for malignant neoplasm of prostate AMB EKG-In Office Today E11.9 - Type 2 diabetes mellitus without complications, I47.19 - Other supraventricular tachycardia, I48.19 - Other persistent atrial fibrillation, R06.02 - Shortness of breath Complete Blood Count Auto Diff Today Z00.00 - Encounter for general adult medical examination without abnormal findings Comprehensive Caroleen. Panel Fast Today Z00.00 - Encounter for general adult medical examination without abnormal findings TSH reflex Free T4 Today Z00.00 - Encounter for general adult medical examination without abnormal findings UA CC w/rflx Micro + Cult Today Z00.00 - Encounter for general adult medical examination without abnormal findings Lipid Panel Today Z00.00 - Encounter for general adult medical examination without abnormal findings Ferritin Today R79.89 - Other specified abnormal findings of blood chemistry Microalbumin, Random (w Creat) Today E11.9 - Type 2 diabetes mellitus without complications Referrals Sleep Medicine Referral E66.01 - Morbid (severe) obesity due to excess calories Medications: New semaglutide (Ozempic) for 4 weeks 0.25 mg (0.368 mL) subcut QWEEK 3 mL 0RF
== END 2024-07-09 16:30 | disposition home or self-care (01) ==
PROVIDERS: PCP Nurse Practitioner Family; Visit Provider Nurse Practitioner Family
DX: Z00.00 Encounter for general adult medical examination without abnormal findings (principal); E11.9 Type 2 diabetes mellitus without complications; E66.01 Morbid (severe) obesity due to excess calories; Z68.42 Body mass index [BMI] 45.0-49.9, adult; R79.89 Other specified abnormal findings of blood chemistry; E53.8 Deficiency of other specified B group vitamins; Z12.5 Encounter for screening for malignant neoplasm of prostate

== ENCOUNTER → 2024-07-09 14:05 | Outpatient (BNVA) | payer OTHER, SELFPAY | PROVIDERS: PCP Nurse Practitioner Family; Visit Provider Nurse Practitioner Family | DX: Z00.00 Encounter for general adult medical examination without abnormal findings (principal); R79.89 Other specified abnormal findings of blood chemistry; E53.8 Deficiency of other specified B group vitamins; E11.9 Type 2 diabetes mellitus without complications; E66.01 Morbid (severe) obesity due to excess calories; Z68.42 Body mass index [BMI] 45.0-49.9, adult | CPT/HCPCS: 83036; 96127 ==

== ENCOUNTER 2024-08-14 06:03 | Outpatient (REF) | payer OTHER, SELFPAY ==
[2024-08-14 06:38] LABS: MANUAL DIFF FLAG NO
[2024-08-14 07:09] LABS: Basophils Absolute Auto 0.1 X10*3/uL (0.0-0.2); Basophils Percent Auto 0.5 % (0-2); Eosinophils Absolute Auto 0.6 X10*3/uL (0.0-0.4); Eosinophils Percent Auto 5.9 % (0-4); Hematocrit 41.9 % (42.0-52.0); Hemoglobin 13.8 g/dl (14.0-18.0); Imm Gran Abs Auto 0.03 X10*3/uL (0.00-0.03); Imm Gran Pct Auto 0.3 % (0.0-0.4); Lymphocytes Absolute Auto 2.9 X10*3/uL (1.2-4.9); Lymphocytes Percent Auto 29.7 % (20-40); Mean Corpuscular HGB Conc 32.9 g/dl (31.0-36.0); Mean Corpuscular Hemoglobin 32.2 pg (27.0-33.0); Mean Corpuscular Volume 97.7 fL (80.0-98.0); Mean Platelet Volume 10.2 fL (9.4-12.4); Monocytes Percent Auto 10.3 % (2-11); Neutrophils Absolute Auto 5.2 x10*3/uL (2.0-8.3); Neutrophils Percent Auto 53.3 % (45-73); Platelet Count 216 X10*3/uL (160-400); Red Blood Count 4.29 X10*6/uL (4.60-5.80); Red Cell Distribution Width 12.5 % (11.0-16.0); White Blood Count 9.8 X10*3/uL (4.8-10.8)
[2024-08-14 07:23] LABS: Appearance Urine Clear; Color Urine Yellow; Glucose Urine UA Negative (Negative); Leukocyte Esterase Urine Negative (Negative); Nitrite Urine Negative (Negative); PH 5.5 (5.0-9.0); Urine Blood Negative (Negative); Urine Ketones Negative (Negative); Urine Protein Trace mg/dL (Neg-Trace)
[2024-08-14 07:31] LABS: Creatinine Urine 154.25 mg/dL; Microalbum/Creatinine Ratio Ur 35.6 ug/mg cr (<30)
[2024-08-14 07:38] LABS: Alanine Aminotransferase 40 U/L (0-40); Albumin Level 4.1 g/dL (3.5-5.0); Alkaline Phosphatase 50 U/L (39-117); Anion Gap 13 (12-20); Aspartate Amino Transferase 33 U/L (5-37); Bilirubin Total 0.6 mg/dL (0.0-1.0); Blood Urea Nitrogen 15 mg/dL (9-16); Calcium 9.5 mg/dL (8.4-10.2); Carbon Dioxide 25 mmol/L (22-29); Chloride 107 mmol/L (96-108); Cholesterol 113 mg/dL (<200); Estimated Glomerular Filt Rate > 60; Glucose Fasting 128 mg/dL (60-99); HDL Cholesterol 56 mg/dL (>40); Iron 139 mcg/dL (45-160); LDL Cholesterol Calculated 48 mg/dL (<100); Percent Iron Saturation 54 % (15-50); Potassium 4.3 mmol/L (3.3-5.1); Sodium 141 mmol/L (135-145); Total Iron Binding Capacity 257 mcg/dL (228-428); Total Protein 6.8 g/dL (6.5-8.0); Triglycerides 47 mg/dL (<150); Unsaturated Iron Binding 118 ug/dL
[2024-08-14 07:56] LABS: Ferritin 642 ng/mL (20-250); TSH reflex Free T4 1.56 uIU/mL (0.32-4.0)
[2024-08-14 08:00] LABS: Folate 13.2 ng/mL (> or = 4.0); Prostate Specific Antigen Scr 0.42 ng/mL (<0.05-4.0); Vitamin B12 883 pg/mL (200-900)
[2024-08-25 09:49] LABS: Class Alternaria alternata 0; Class Aspergillus fumigatus 2; Class Bermuda Grass 0; Class Birch 0; Class Cat Dander 3; Class Cladosporium herbarum 2; Class Cockroach 0/1; Class Common Ragweed 0; Class Cottonwood 0; Class Derm. pterony 3; Class Dermatophagoides farinae 3; Class Dog Dander 3; Class Elm 0; Class Maple Box Elder 0; Class Mountain Cedar 1; Class Mouse Urine Protein 0/1; Class Mugwort 0; Class Oak 0; Class Penicillium crysogenum 3; Class Rough Pigweed 0; Class Sheep Sorrel 0; Class Sycamore 0; Class Timothy Grass 0; Class Walnut Tree 0; Class White Ash 0; Class White Mulberry 0; D001 IgE D pteronyssinus 8.52 kU/L; D002 - IgE D farinae 7.94 kU/L; E005 - IgE Dog Dander 4.08 kU/L; E072-IgE Mouse Urine 0.23 kU/L; G002 IgE Bermuda Grass <0.10 kU/L; G006 - IgE Timothy Grass <0.10 kU/L; I006-IgE Cockroach, German 0.32 kU/L; Immunoglobulin E 745 kU/L (<OR=114); M001 IgE Penicillium chrysogen 4.74 kU/L; M002 - IgE Cladosporium herbar 1.17 kU/L; M003 - IgE Aspergillus fumigat 1.13 kU/L; M006 - IgE Alternaria alternat <0.10 kU/L; T001 IgE Maple/Box Elder <0.10 kU/L; T003 IgE Common Silver Birch <0.10 kU/L; T006 - IgE Cedar, Mountain 0.49 kU/L; T007 - IgE Oak, White <0.10 kU/L; T008 IgE Elm, American <0.10 kU/L; T010 - IgE Walnut <0.10 kU/L; T011 - IgE Maple Leaf Sycamore <0.10 kU/L; T014 - IgE Cottonwood <0.10 kU/L; T015 - IgE Ash, White <0.10 kU/L; T070 - IgE White Mulberry <0.10 kU/L; W001 - IgE Ragweed, Short <0.10 kU/L; W006 - IgE Mugwort <0.10 kU/L; W014 IgE Pigweed, Common <0.10 kU/L; W018 IgE Sheep Sorrel <0.10 kU/L
== END 2024-08-14 06:04 | disposition home or self-care (01) ==
LOC: HO.LAB 06:03
PROVIDERS: PCP Nurse Practitioner Family; Visit Provider Nurse Practitioner Family
DX: Z00.00 Encounter for general adult medical examination without abnormal findings (principal); R79.89 Other specified abnormal findings of blood chemistry; E53.8 Deficiency of other specified B group vitamins; R06.2 Wheezing; Z12.5 Encounter for screening for malignant neoplasm of prostate; E11.9 Type 2 diabetes mellitus without complications; I48.91 Unspecified atrial fibrillation; I47.19 Other supraventricular tachycardia; I42.9 Cardiomyopathy, unspecified
CPT/HCPCS: 36415; 80053; 80061; 81003; 82043; 82570; 82607; 82728; 82746; 82785; 83540; 84153; 84443; 85025; 86003; 93005

== ENCOUNTER 2024-08-14 08:41 | Outpatient (AMB) | payer OTHER, SELFPAY ==
[2024-08-14 09:09] VITALS: BP 148/72; PULSE 73; BMI 47.7
--- NOTE | 2024-08-14 09:09 | A.OFFVIS_ITS ---
Vital Signs 08/14/24 09:09 Height 5 ft 8 in Weight 313 lb 15.012 oz BMI 47.7 BP 148/72 H Blood Pressure Location Lt brachial Position Sitting Pulse 73 Intake Visit Reasons: Follow up- EKG Instructional Consultant Required: No Accompanied by: Self / Same As Patient Allergies No Known Allergies Allergy (Verified 07/09/24 14:08) Medication List - Last Reconciled 08/14/24 by Ruby Fontenot NP-C apixaban (Eliquis) 5 mg PO BID 90 days atorvastatin 20 mg PO BEDTIME cyanocobalamin (vitamin B-12) 500 mcg PO DAILY dronedarone (Multaq) 400 mg PO BID FreeStyle Lite Meter (blood-glucose meter) As directed NS FreeStyle Lite Strips (blood sugar diagnostic) Test blood sugar twice a day NS lancets (FreeStyle Lancets) Test blood sugar twice a day losartan 25 mg PO DAILY magnesium oxide 400 mg PO BID metformin ER 500 mg PO DAILY metoprolol succinate ER 25 mg PO DAILY omeprazole 40 mg PO DAILY semaglutide (Ozempic) 0.5 mg (0.736 mL) subcut QWEEK sildenafil (Viagra) 100 mg PO DAILY PRN HPI HPI Follow up- EKG: Details: Alvarez is a 64-year-old male with past medical history of obesity, hypertension, diabetes, atrial fibrillation which is currently suppressed with Multaq who presents for follow-up. Today he reports that he has been doing well since his last visit November 2023. Denies any recent heart palpitations. No chest discomfort at rest or with activity. He does have some chornic mild sob with exertion which is unchanged. No PND, orthopnea. He does get some mild ankle edema which is not new. No lightheadedness, presyncope, syncope, falls. Taking all meds as directed. No bleeding issues reported. 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 Good activity tolerance. [facility] Medical History Elevated ferritin Cardiomyopathy Atrial flutter Persistent atrial fibrillation Myalgia Morbid obesity Localized swelling of both lower legs Arthralgia Diverticulitis large intestine w/o perforation or abscess w/o bleeding HTN (hypertension) Polyarthralgia Hemochromatosis Surgical History History of shoulder surgery History of resection of terminal ileum Family History Father Substance use disorder Mother Breast cancer Substance use disorder Brother Substance use disorder Social History Household Members: Spouse Housing: House Are you a primary nurse wound care to a significant other at home: No Do you presently have visiting nurse or other home services: No Alcohol intake: former Patient Tobacco Use Status: Never used Tobacco e-Cigarette/Vaping Use: Never Used Second Hand Smoke Exposure: No Advance Directives Date on File: 06/04/23 service: No Current occupational status: employed Current occupation: Works in [employer] Current occupational exposures/hazards: Yes Cognitive needs: No Hearing needs: No Vision needs: No Review of Systems Const All systems reviewed & are unremarkable except as noted in HPI and below Denies chills, Denies fatigue, Denies fever(s), Denies weight gain and Denies weight loss ENT Denies dizziness Card Denies chest pain, Denies leg edema, Denies lightheadedness, Denies palpitations, Denies dyspnea on exertion, Denies orthopnea and Denies other Resp Denies cough and Denies dyspnea on exertion GI Denies hematochezia and Denies change in stool character Musc Denies abnormal gait, Denies muscle weakness, Denies numbness, Denies radiating pain into limb and Denies tingling Neuro Denies abnormal gait, Denies dizziness, Denies numbness and Denies tingling Endo Denies fatigue and Denies palpitations Physical Exam Vital Signs: Last Vital Signs Pulse 73 08/14/24 09:09 BP 148/72 H 08/14/24 09:09 BMI result Body Mass Index 47.7 Const General: cooperative, healthy appearing, comfortable and no acute distress Orientation/consciousness: patient oriented x3 Neck Neck: Yes normal visual inspection and Yes no JVD Resp Effort & Inspection: normal respiratory effort Auscultation: clear to auscultation bilaterally, no rales, no rhonchi and no wheezes Cardio Rate: regular rate Rhythm: regular rhythm Heart sounds: S1 normal heart sound present, S2 normal heart sound present, no murmurs and no rubs Neuro General: patient oriented x3 Extrem General: Yes normal to inspection, No no pedal edema and No calf tenderness Psych Appearance: grossly normal Mental Status: mental status grossly normal Speech and movement: Normal speech and movement present Office Procedures EKG Details: Today, read by me, normal sinus rhythm, rate 73, QTC 431 milliseconds [id number], Complete Assessment & Plan Assessment & Plan (1) Atrial fibrillation: Comment: New diagnosis of atrial fibrillation 05/20/2023 at PCP office Code(s): I48.91 - Unspecified atrial fibrillation Category: Medical Plan: History of atrial fibrillation with prior cardioversion, currently suppressed with Multaq and metoprolol. No known recurrent atrial fibrillation since his cardioversion 08/2023. EKG done today shows normal sinus rhythm, rate 73, QTC 431 milliseconds. He is on Eliquis for anticoagulation. - continue current med management. Labs done today showed creatinine 0.7, hematocrit 41.9. Office EKG in 3 months. Cardiology follow-up 6 months, sooner if needed. (2) Atrial tachycardia: Code(s): I47.19 - Other supraventricular tachycardia Category: Medical Plan: Brief episode of atrial tach seen on EKG prior to the start of Multaq. No documented recurrent episodes. (3) Cardiomyopathy: Code(s): I42.9 - Cardiomyopathy, unspecified Category: Medical Plan: Finding of cardiomyopathy with EF 40-45% with AFib RVR. Nuclear stress test done 10/04/2023 shows probably normal myocardial perfusion, no evidence of ischemia or infarct. Reduced EF likely tachycardia mediated. He has been treated with rhythm and rate control. Last echo 12/13/2023 showed EF 55-60%. Continue metoprolol and losartan. Plan Time spent on chart review, documentation, interview and assessment Coding Level of Care Code Est Pt Level 4 (47841) Complex EM visit Add On G2211 Diagnoses Atrial fibrillation I48.91 Atrial tachycardia I47.19 Cardiomyopathy I42.9 CPT Codes EKG - CPT: [id number], Complete ([id number]) Time Spent (min) 28
== END 2024-08-14 09:35 | disposition home or self-care (01) ==
LOC: HO.HCS 08:41
PROVIDERS: PCP Nurse Practitioner Family; Visit Provider Nurse Practitioner Family
DX: I48.91 Unspecified atrial fibrillation (principal); I47.19 Other supraventricular tachycardia; I42.9 Cardiomyopathy, unspecified
CPT/HCPCS: 93010; 99214

== ENCOUNTER 2024-08-28 12:47 | Outpatient (REF) | payer OTHER, SELFPAY ==
--- NOTE | ~2024-08-28 | CT_ITS ---
CLINICAL HISTORY: R06.2 - Wheezing CT chest without contrast Comparison: None Findings: The heart is normal size. Mild coronary calcium. The visualized thyroid and mediastinum are unremarkable. No chest wall lesions. The lungs are clear. Trachea and central bronchi are patent. Hepatic steatosis. No acute fractures. IMPRESSION: 1. No acute cardiopulmonary disease. This document has been electronically signed by: Swati Bautista MD on 08/31/2024 08:57:20
== END 2024-08-28 12:48 | disposition home or self-care (01) ==
LOC: HO.CT 12:47
PROVIDERS: PCP Nurse Practitioner Family; Visit Provider Nurse Practitioner Family
DX: R06.2 Wheezing (principal)
CPT/HCPCS: 71250

== ENCOUNTER → 2024-08-28 12:48 | Outpatient (BNV) | payer OTHER, SELFPAY | PROVIDERS: PCP Nurse Practitioner Family; Visit Provider Radiology Diagnostic Radiology | DX: R06.2 Wheezing (principal) | CPT/HCPCS: 71250 ==

== ENCOUNTER 2024-09-04 09:53 | Outpatient (REF) | payer OTHER, SELFPAY | END 2024-09-04 09:54 | disposition home or self-care (01) | LOC: HO.BBR 09:53 | PROVIDERS: PCP Nurse Practitioner Family; Visit Provider Internal Medicine | DX: Z13.89 Encounter for screening for other disorder (principal) ==

== ENCOUNTER 2024-10-23 09:48 | Outpatient (REF) | payer OTHER, SELFPAY ==
--- OUTSIDE RECORDS SUMMARY | 2024-10-23 10:00 | XMS_ITS | Patient Health Record ---
Author Organization [facility] Address [address] [place] [id number] Care Team Providers Care Waiter/Waitress Informal Name Role Phone EVELIN OLIVEIRA Primary Care Provider Manny Shaw Jr Unavailable Reason For Referral No Information Medications Medication SIG (Take, Route, Frequency, Duration) Notes Start Date End Date Status Omeprazole 40 MG 1 tablet 30 minutes before morning meal Orally Once a day Active Metoprolol Tartrate 25 MG 1/2 tablet Ora lly Twice a day Active Immunizations Vaccine Route Administration Date Status Comme nts Influenza Unknown 02/03/2019 Administered Problems Problem Type SNOMED Code ICD Code Onset Dates Problem Status W/U Status Risk Notes Problem Hdz ([id number]) Hdz's esophagus without dysplasia (K22.70) Active confirmed Plan Of Treatment Future Test Test Name Order Date UPPER GI ENDOSCOPY 08/08/2011 UPPER GI ENDOSCOPY 02/17/2015 UPPER GI ENDOSCOPY 06/18/2019 Next Appt Details Provider Name:Manny conte Jr, 11/09/2024 09:00:00 AM, [address], [address], [place], [address], Medical (General) History Medical History History ICD Code diverticulitis hypertension rosacea Hdz's esophagus colon polyps/diverticulitis, colonoscopies done through Dr. Ayala,, last colonoscopy 2013 Surgical History Surgery Date(Month/Year) shoulder surgery colonoscopy, 2004 (hyperplastic polyp) bowel resection 2017 cataract
== END 2024-10-23 09:49 | disposition home or self-care (01) ==
LOC: HO.BBR 09:48
PROVIDERS: PCP Nurse Practitioner Family; Visit Provider Internal Medicine
DX: Z13.89 Encounter for screening for other disorder (principal)

== ENCOUNTER 2024-11-05 08:55 | Outpatient (AMB) | payer BC, OTHER, SELFPAY ==
--- NOTE | 2024-11-05 09:04 | MHC.PC.OV ---
Vital Signs 11/05/24 09:06 Height 5 ft 8 in Weight 310 lb BMI 47.1 BP 124/72 Blood Pressure Location Lt brachial Position Sitting Pulse 68 Pulse Source Pulse Oximeter Pulse Oximetry (%) 96 Oxygen Delivery Method Room Air Intake Visit Reasons: 4m follow up Model Builder Required: No Accompanied by: Self / Same As Patient Allergies No Known Allergies Allergy (Verified 11/05/24 09:34) Medication List - Last Reconciled 11/05/24 by Yair Angel SLEEPING ROOM CLEANER- albuterol sulfate 90 mcg/actuation (Ventolin HFA) 2 puffs inhalation Q6H PRN apixaban (Eliquis) 5 mg PO BID 90 days atorvastatin 20 mg PO BEDTIME cyanocobalamin (vitamin B-12) 500 mcg PO DAILY dronedarone (Multaq) 400 mg PO BID FreeStyle Lite Meter (blood-glucose meter) As directed NS FreeStyle Lite Strips (blood sugar diagnostic) Test blood sugar twice a day NS lancets (FreeStyle Lancets) Test blood sugar twice a day losartan 25 mg PO DAILY magnesium oxide 400 mg PO BID metoprolol succinate ER 25 mg PO DAILY omeprazole 40 mg PO DAILY semaglutide 2 mg (0.75 mL) subcut QWEEK sildenafil (Viagra) 100 mg PO DAILY PRN Tobacco use date assessed: 07/09/24 Fall risk assessment: No Falls in past year Last assessed Fall Risk: 11/05/24 Dental Screening Dental Screen Date: 07/09/24 HPI 4m follow up HPI Details Chief Complaint The patient presents for a follow-up regarding diabetes management and associated complications. History of Present Illness The patient is a 64-year-old male presenting with diabetes management. He has a history of diabetic neuropathy, primarily affecting the toes with decreased sensation noted on the plantar aspect, especially on the right foot. The patient is morbidly obese, which complicates his diabetes management. He reports gastrointestinal discomfort and is currently taking omeprazole for gastroesophageal reflux disease (GERD). He plans to visit a chiropractic practice manager soon for further evaluation. The patient's hemoglobin A1c level was recorded at 6.4%, leading to the decision to discontinue metformin and increase the dosage of semaglutide from 1 mg to 2 mg. He is responsible for scheduling his own eye examination as part of his diabetes management plan. Social History Health Maintenance - Eye exam: Patient to schedule independently as part of diabetes management Review of Systems - Neurological: Reports decreased sensation in toes, especially on the right foot - Gastrointestinal: Reports upset stomach, taking omeprazole Physical Exam General: Cooperative, healthy appearing, comfortable, no acute distress and well developed, morbidly obese Orientation: Patient oriented x3 Limitations: No limitations Head: Normal to inspection Ears: Hearing grossly normal bilaterally Nose: Normal external nose present Face and sinus: Normal facial exam Eyes: Appearance normal, both eyes and all related structures Neck: Normal visual inspection and Yes full ROM Respiratory: Fairly clear Cardiovascular: Regular rate and rhythm. Normal S1 and S2 GI: Upset stomach reported. Normal to inspection. Soft to palpation and nontender Skin: No rashes or lesions noted Neuro: Neuropathy noted, mostly to the toes with lack of sensation to the plantar aspect of toes, mostly on the right side. feet were intact Extremities: Normal to inspection Results - Labs: Hemoglobin A1c 6.4% Plan The patient's diabetes management plan includes discontinuing metformin due to an A1c level of 6.4% and increasing the semaglutide dosage from 1 mg to 2 mg. He is advised to schedule an eye exam independently as part of his diabetes care. The patient is experiencing gastrointestinal discomfort and is currently on omeprazole; he plans to consult a chiropractic practice manager for further evaluation. Follow-up is scheduled in six months for a comprehensive physical examination and diabetes management review. Discussion Notes I discussed with the patient the management of his diabetes, including the decision to stop metformin and increase semaglutide due to his current A1c level. We also talked about the importance of regular eye exams and his plan to see a chiropractic practice manager for his gastrointestinal symptoms. A follow-up appointment is scheduled in six months to reassess his condition and overall health. Patient Instructions - Schedule an eye exam as part of diabetes management. - Continue taking omeprazole for stomach upset and consult a chiropractic practice manager. - Follow up in six months for a full physical and diabetes review. [facility] Medical History Elevated ferritin Cardiomyopathy Atrial flutter Persistent atrial fibrillation Myalgia Morbid obesity Localized swelling of both lower legs Arthralgia Diverticulitis large intestine w/o perforation or abscess w/o bleeding HTN (hypertension) Polyarthralgia Hemochromatosis Surgical History History of shoulder surgery History of resection of terminal ileum Family History Father Substance use disorder Mother Breast cancer Substance use disorder Brother Substance use disorder Social History Household Members: Spouse Housing: House Are you a primary acute care physical therapist to a significant other at home: No Do you presently have visiting nurse or other home services: No Alcohol intake: former Patient Tobacco Use Status: Never used Tobacco e-Cigarette/Vaping Use: Never Used Second Hand Smoke Exposure: No Advance Directives Date on File: 06/04/23 service: No Current occupational status: employed Current occupation: Works in [employer] Current occupational exposures/hazards: Yes Cognitive needs: No Hearing needs: No Vision needs: No Questionnaire Thrive Questionnaire Date Thrive assessed: 11/05/24 I am a: Patient What is your living situation today?: I have a steady place to live Within the past 12 months, did the food you bought not last and you didn't have the money to get more?: Never true Within the past 12 months, did you worry whether your food would run out before you got money to buy more?: Never true Do you have trouble paying for medicines?: No Do you have trouble getting transportation to medical appointments?: No Do you have trouble paying your heating and electricity bill?: No Do you have trouble taking care of your child, family member or friend?: No Do you have trouble with day-to-day activities such as bathing, preparing meals, shopping, managing finances, etc.?: No Are you currently unemployed and looking for a job?: No Are you interested in more education?: No Please select the resources that you would like help with: None Currently or been in a relationship where the following occur: No concerns reported THRIVE Score: 0 AUDIT C Alcohol Use Questionnaire (AUDIT-C) 1. How often do you have a drink containing alcohol?: Never 3. How often do you have six or more drinks on one occasion?: Never Total Score: 0 Score Reviewed/Action Taken: Yes ZEHRA-7 AMB Questionnaire ZEHRA-7 Date ZEHRA - 7 assessed: 11/05/24 Feeling nervous, anxious, or on edge: 0 = Not at all Not being able to stop or control worryin = Not at all Worrying too much about different things: 0 = Not at all Trouble relaxin = Not at all Being so restless that it is hard to sit still: 0 = Not at all Becoming easily annoyed or irritable: 0 = Not at all Feeling afraid as if something awful might happen: 0 = Not at all Total ZEHRA-7 score (0-4 normal; 5-9 mild; 10-14 moderate; 15-21 severe): 0 Source: Developed by Drs. Brennon Rizvi, Cristina Albrecht, Qasim Westfall and colleagues, with an educational yolanda from [employer] ZEHRA-7 Assessment Billing ZEHRA-7 Assessment Tool: ZEHRA-7 Assessment 29756 Physical exam (Primary Care) Vital Signs: Last Vital Signs Pulse 68 11/05/24 09:06 BP 124/72 11/05/24 09:06 Pulse Ox 96 11/05/24 09:06 Oxygen Delivery Method Room Air 11/05/24 09:06 BMI result Body Mass Index 47.1 Tobacco/Smoking Status: Tobacco use Status Tobacco use date assessed 07/09/24 11/05/24 09:04 Patient Tobacco Use Status Never used Tobacco 11/05/24 09:04 e-Cigarette/Vaping Use Never Used 11/05/24 09:04 Thrive Assessment: Date of Thrive Assessment Date Thrive assessed 11/05/24 11/05/24 09:08 Currently or been in a relationship where the following occur: No concerns reported Results AMB Hemoglobin A1c AMB Hemoglobin A1c 6.4 % Last Edit by Ac Clayton CMA on 11/05/24 09:21 Coding Level of Care Code Est Pt Level 3 (72561) Diagnoses Diabetes E11.9 B12 deficiency E53.8 Additional Codes ZEHRA-7 Assessment Billing - ZEHRA-7 Assessment Tool: ZEHRA-7 Assessment 92649 ([id number]) Assessment & Plan Assessment & Plan (1) Diabetes: Code(s): E11.9 - Type 2 diabetes mellitus without complications Category: Medical (2) B12 deficiency: Code(s): E53.8 - Deficiency of other specified B group vitamins Category: Medical Plan . Orders: Orders Lipid Panel Today E11.9 - Type 2 diabetes mellitus without complications, E53.8 - Deficiency of other specified B group vitamins Complete Blood Count Auto Diff Today E11.9 - Type 2 diabetes mellitus without complications, E53.8 - Deficiency of other specified B group vitamins Comprehensive [place]. Panel Fast Today E11.9 - Type 2 diabetes mellitus without complications, E53.8 - Deficiency of other specified B group vitamins TSH reflex Free T4 Today E11.9 - Type 2 diabetes mellitus without complications, E53.8 - Deficiency of other specified B group vitamins UA CC w/rflx Micro + Cult Today E11.9 - Type 2 diabetes mellitus without complications, E53.8 - Deficiency of other specified B group vitamins AMB Hemoglobin A1c Today Z13.9 - Encounter for screening, unspecified Medications: Changed From semaglutide for 4 weeks 1 mg (0.75 mL) subcut QWEEK 3 mL 0RF To semaglutide for 4 weeks 2 mg (0.75 mL) subcut QWEEK 3 mL 0RF Discontinued metformin ER Discontinued Reason: Doctor's Order 500 mg PO DAILY 90 tabs 3RF montelukast Discontinued Reason: Doctor's Order 10 mg PO BEDTIME 90 days 90 tabs 2RF
[2024-11-05 09:06] VITALS: BP 124/72; PULSE 68; O2SAT 96; BMI 47.1
--- OUTSIDE RECORDS SUMMARY | 2024-11-05 09:06 | XMS_ITS | Patient Health Record ---
Author Organization [facility] Address [address] [place] [phone] Care Team Providers Care Management Department Chair Name Role Phone EVELIN OLIVEIRA Primary Care Provider Manny Shaw Jr Unavailable [phone] Reason For Referral No Information Medications Medication [...] Status W/U Status Risk Notes Problem Hdz (861945426) Hdz's esophagus without dysplasia (K22.70) Active confirmed Plan Of Treatment Future Test Test Name Order Date UPPER GI ENDOSCOPY 08/08/2011 UPPER GI ENDOSCOPY 02/17/2015 UPPER GI ENDOSCOPY 06/18/2019 Next Appt Details Provider Name:Manny conte Jr, 11/09/2024 09:00:00 AM, [address], [address], [place], [address], Insurance Providers Payer Name Payer Address Payer Phone Subscriber Number Group Number Insured Name Patient Relationship to Insured Coverage Start Date Coverage End Date [facility] [address] [place] [address] [phone] [id number] KEN MARTINEZ Self - patient is the insured Medical (General) History Medical History History ICD Code diverticulitis hypertension rosacea Hdz's esophagus colon polyps/diverticulitis, colonoscopies done through Dr. Ayala,, last colonoscopy 2013 Surgical History Surgery Date(Month/Year) shoulder surgery colonoscopy, 2004 (hyperplastic polyp) bowel resection 2016 cataract
== END 2024-11-05 09:51 | disposition home or self-care (01) ==
PROVIDERS: PCP Nurse Practitioner Family; Visit Provider Nurse Practitioner Family
DX: E11.9 Type 2 diabetes mellitus without complications (principal); E53.8 Deficiency of other specified B group vitamins; Z13.9 Encounter for screening, unspecified

== ENCOUNTER → 2024-11-05 08:55 | Outpatient (BNVA) | payer BC, SELFPAY | PROVIDERS: PCP Nurse Practitioner Family; Visit Provider Nurse Practitioner Family | DX: E11.40 Type 2 diabetes mellitus with diabetic neuropathy, unspecified (principal); E53.8 Deficiency of other specified B group vitamins; K21.9 Gastro-esophageal reflux disease without esophagitis; E66.01 Morbid (severe) obesity due to excess calories; Z68.42 Body mass index [BMI] 45.0-49.9, adult | CPT/HCPCS: 83036; 96127 ==

== ENCOUNTER 2024-11-20 09:28 | Outpatient (AMB) | payer BC, OTHER, SELFPAY ==
--- OUTSIDE RECORDS SUMMARY | 2024-11-20 09:35 | XMS_ITS | Patient Health Record ---
Author Organization [facility] Address [address] [place] [phone] Care Team Providers Care Port Patrol Officer Name Role Phone EVELIN OLIVEIRA Primary Care [...] Status W/U Status Risk Notes Problem Hdz ([id number]) Hdz's esophagus without dysplasia (K22.70) Active confirmed Encounters Encounter Location Date Provider Diagnosis [facility] [address] [place] [phone] 11/09/2024 Manny Bae Jr Plan Of Treatment Future Test Test Name Order Date UPPER GI ENDOSCOPY 08/08/2011 UPPER GI ENDOSCOPY 02/17/2015 UPPER GI ENDOSCOPY 06/18/2019 Insurance Providers Payer Name Payer Address Payer Phone Subscriber Number Group Number Insured Name Patient Relationship to Insured Coverage Start Date Coverage End Date [facility] [address] [place] [address] [id number] KEN MARTINEZ Self - patient is the insured Medical (General) History Medical History History ICD Code diverticulitis hypertension rosacea Hdz's esophagus colon polyps/diverticulitis, colonoscopies done through Dr. Ayala,, last colonoscopy 2013 Surgical History Surgery Date(Month/Year) shoulder surgery colonoscopy, 2005 (hyperplastic polyp) bowel resection 2016 cataract
--- NOTE | 2024-11-20 10:08 | AM.OFFVISNUR ---
Intake Visit Reasons: EKG Allergies No Known Allergies Allergy (Verified 11/05/24 09:34) Nursing Note pt is here fpr nurse visit with ekg pt is taking Dronedaron 400 mg PO BID pt has no complaints ekg left on BIT TRIPOLER DC desk's for review Office Procedures EKG 65086-Mxljrccbybcosaorz, Complete Coding CPT Codes EKG - CPT: 88551-Riggwgorhzvaoqamv, Complete ([id number])
== END 2024-11-20 10:10 | disposition home or self-care (01) ==
LOC: HO.HCS 09:29
PROVIDERS: PCP Nurse Practitioner Family; Visit Provider Nurse Practitioner Family
DX: R94.31 Abnormal electrocardiogram [ECG] [EKG] (principal)
CPT/HCPCS: 93010

== ENCOUNTER → 2024-11-20 09:28 | Outpatient (BNVA) | payer BC, OTHER, SELFPAY | PROVIDERS: PCP Nurse Practitioner Family; Visit Provider Nurse Practitioner Family | DX: R94.31 Abnormal electrocardiogram [ECG] [EKG] (principal) | CPT/HCPCS: 93005 ==

== ENCOUNTER 2024-12-11 08:47 | Outpatient (REF) | payer BC, OTHER, SELFPAY ==
--- OUTSIDE RECORDS SUMMARY | 2024-12-11 09:02 | XMS_ITS | Patient Health Record ---
Author Organization [facility] Address [address] [place] [phone] Care Team Providers Care Assistant Tennis Coach Name Role Phone EVELIN OLIVEIRA Primary Care [...] Status W/U Status Risk Notes Problem Hdz ([id number]) Hdz's esophagus without dysplasia (K22.70) Active confirmed Encounters Encounter Location Date Provider Diagnosis [facility] [address] [place] [phone] 11/09/2024 Manny Bae Jr Plan Of Treatment Future Test Test Name Order Date UPPER GI ENDOSCOPY 08/08/2011 UPPER GI ENDOSCOPY 02/17/2015 UPPER GI ENDOSCOPY 06/18/2019 Insurance Providers Payer Name Payer Address Payer Phone Subscriber Number Group Number Insured Name Patient Relationship to Insured Coverage Start Date Coverage End Date [facility] [address] [place] [address] [id number] KEN MARTINEZ Self - patient is the insured Medical (General) History Medical History History ICD Code diverticulitis hypertension rosacea Hdz's esophagus colon polyps/diverticulitis, colonoscopies done through Dr. Ayala,, last colonoscopy 2013 Surgical History Surgery Date(Month/Year) shoulder surgery colonoscopy, 2005 (hyperplastic polyp) bowel resection 2016 cataract
== END 2024-12-11 08:48 | disposition home or self-care (01) ==
LOC: HO.BBR 08:47
PROVIDERS: PCP Nurse Practitioner Family; Visit Provider Internal Medicine
DX: Z13.89 Encounter for screening for other disorder (principal)

== ENCOUNTER 2025-01-28 15:25 | Outpatient (REF) | payer BC, OTHER, SELFPAY ==
--- OUTSIDE RECORDS SUMMARY | 2024-11-09 05:00 | XMS_ITS ---
Author Organization [facility] Address [address] [place] [phone] Care Team Providers Care Last Marker Name Role Phone EVELIN OLIVEIRA Primary Care Provider Jocelin Bae Jr, Manny Unavailable [phone] REASON FOR VISIT Patient presents today for a recall colon / egd Encounters Encounter Location Date Provider Diagnosis [facility] [address] [place] [phone] 11/09/2024 Manny Bae Jr Plan Of Treatment No Information Progress Notes * KEN MARTINEZDOB: [birth year] (65 yo M)Acc No.[id number]:11/09/2024 Progress Notes Patient: KEN ALCALA Provider: Daren Bae MD :1960 A ge:64 Y S ex:Male Date:11/09/2024 Address:[address] [place], [place] [phone] Pcp:EVELIN OLIVEIRA Subjective: * Chief Complaints: * [...] Pending * Provider: Daren Bae MD Date: 11/09/2024 Generated for Printi ng/Faxing/eTransmitting on: 0 01/28/2025 07:29 PM EDT
--- OUTSIDE RECORDS SUMMARY | 2025-01-28 19:29 | XMS_ITS | Patient Health Record ---
Author Organization [facility] Address [address] [place] [phone] Care Team Providers Care Director Of Entertainment Name Role Phone EVELIN OLIVEIRA Primary Care [...] Status W/U Status Risk Notes Problem Hdz ([id number]) Hdz's esophagus without dysplasia (K22.70) Active confirmed Encounters Encounter Location Date Provider Diagnosis [facility] [address] [place] [phone] 11/09/2024 Manny Bae Jr Plan Of Treatment Future Test Test Name Order Date UPPER GI ENDOSCOPY 08/08/2011 UPPER GI ENDOSCOPY 02/17/2015 UPPER GI ENDOSCOPY 06/18/2019 Insurance Providers Payer Name Payer Address Payer Phone Subscriber Number Group Number Insured Name Patient Relationship to Insured Coverage Start Date Coverage End Date [facility] [address] [place] [address] [phone] [id number] KEN MARTINEZ Self - patient is the insured Medical (General) History Medical History History ICD Code diverticulitis hypertension rosacea Hdz's esophagus colon polyps/diverticulitis, colonoscopies done through Dr. Ayala,, last colonoscopy 2013 Surgical History Surgery Date(Month/Year) shoulder surgery colonoscopy, 2005 (hyperplastic polyp) bowel resection 2016 cataract
== END 2025-01-28 15:26 | disposition home or self-care (01) ==
LOC: HO.BBR 15:25
PROVIDERS: PCP Nurse Practitioner Family; Visit Provider Internal Medicine
DX: Z13.89 Encounter for screening for other disorder (principal)

== ENCOUNTER 2025-02-23 15:08 | Outpatient (REF) | payer BC, OTHER, SELFPAY ==
--- NOTE | ~2025-02-23 | XR_ITS ---
EXAMINATION: XR CHEST CLINICAL INFORMATION: I48.91 - Unspecified atrial fibrillation COMPARISON: 06/04/2023. TECHNIQUE: 2 views of the chest were obtained. FINDINGS: The cardiac, hilar, and mediastinal contours are normal. The lungs are clear bilaterally. There is no pneumothorax or pleural effusion. There is no focal osseous or soft tissue abnormality. XR/XR chest 2V IMPRESSION: No active pulmonary disease. Electronically signed by: Jarett Rothman MD 02/23/2025 04:24 PM EDT
[2025-02-23 17:57] LABS: Hematocrit 40.4 % (42.0-52.0); Hemoglobin 13.4 g/dl (14.0-18.0); Mean Corpuscular HGB Conc 33.2 g/dl (31.0-36.0); Mean Corpuscular Hemoglobin 31.3 pg (27.0-33.0); Mean Corpuscular Volume 94.4 fL (80.0-98.0); NRBC Abs Auto 0.000 X10*3/uL (0.0-0.012); NRBC Pct Auto 0.0 /100WBC (0.0-0.2); Platelet Count 258 X10*3/uL (160-400); Red Blood Count 4.28 X10*6/uL (4.60-5.80); White Blood Count 10.8 X10*3/uL (4.8-10.8)
[2025-02-23 18:30] LABS: Alanine Aminotransferase 28 U/L (0-40); Albumin Level 4.6 g/dL (3.5-5.0); Alkaline Phosphatase 61 U/L (39-117); Anion Gap 11 (12-20); Aspartate Amino Transferase 28 U/L (5-37); Blood Urea Nitrogen 13 mg/dL (9-16); Calcium 10.1 mg/dL (8.4-10.2); Carbon Dioxide 25 mmol/L (22-29); Chloride 107 mmol/L (96-108); Estimated Glomerular Filt Rate > 60; Potassium 4.3 mmol/L (3.3-5.1); Sodium 139 mmol/L (135-145); Total Protein 7.1 g/dL (6.5-8.0)
== END 2025-02-23 15:09 | disposition home or self-care (01) ==
LOC: HO.XRAY 15:08
PROVIDERS: PCP Nurse Practitioner Family; Visit Provider Internal Medicine Cardiovascular Disease
DX: I48.91 Unspecified atrial fibrillation (principal); Z79.01 Long term (current) use of anticoagulants
CPT/HCPCS: 36415; 71046; 80048; 80076; 84443; 85027; 93005

== ENCOUNTER 2025-02-23 15:08 | Outpatient (AMB) | payer BC, OTHER, SELFPAY ==
--- OUTSIDE RECORDS SUMMARY | 2024-11-09 05:00 | XMS_ITS ---
Author Organization [facility] Address [address] [place] [address] Care Team Providers Care Signal Supervisor Name Role Phone EVELIN OLIVEIRA Primary Care Provider Jocelin Bae Jr, Manny Unavailable [phone] REASON FOR VISIT Patient presents today for a recall colon / egd Encounters Encounter Location Date Provider Diagnosis [facility] [address] [place] [phone] 11/09/2024 Manny Bae Jr Plan Of Treatment No Information Progress Notes * KEN MARTINEZDOB: [birth year] (65 yo M)Acc No.[id number]:11/09/2024 Progress Notes Patient: KEN ALCALA Provider: Daren Bae MD :1960 A ge:64 Y S ex:Male Date:11/09/2024 Address:[address] [place], [place] [phone] Pcp:EVELIN OLIVEIRA Subjective: * Chief Complaints: * [...] 11/09/2024 Generated for Printi ng/Faxing/eTransmitting on: 1 08:21 PM EDT
[2025-02-23 15:20] VITALS: BP 120/76; PULSE 96; BMI 47.3
--- NOTE | 2025-02-23 15:20 | A.OFFVIS_ITS ---
Vital Signs 02/23/25 15:20 Height 5 ft 8 in Weight 310 lb 13.628 oz BMI 47.3 BP 120/76 Blood Pressure Location Lt brachial Position Sitting Pulse 96 Intake Visit Reasons: 6m follow up Intake Note: 6 month follow-up with ekg feeling good Youth Manager Required: No Allergies No Known Allergies Allergy (Verified 11/05/24 09:34) Medication List - Last Reconciled 02/23/25 by Fredi Hart MD apixaban (Eliquis) 5 mg PO BID 90 days atorvastatin 20 mg PO BEDTIME cyanocobalamin (vitamin B-12) 500 mcg PO DAILY dronedarone (Multaq) 400 mg PO BID FreeStyle Lite Meter (blood-glucose meter) As directed NS FreeStyle Lite Strips (blood sugar diagnostic) Test blood sugar twice a day NS lancets (FreeStyle Lancets) Test blood sugar twice a day losartan 25 mg PO DAILY magnesium oxide 400 mg PO BID metoprolol succinate ER 25 mg PO DAILY omeprazole 40 mg PO DAILY semaglutide (Ozempic) 2 mg (0.75 mL) subcut QWEEK sildenafil (Viagra) 100 mg PO DAILY PRN HPI Comments Details: Alvarez comes for 6 monthly office visit. He had EKGs in November while on dronedarone therapy which had shown normal sinus rhythm. Comes today he is noted to be in atrial fibrillation. This is new finding. He says he may have some increased shortness of breath but he is not clear on that. Denies any palpitations. Has been taking all his medications. He has been taking his oral anticoagulation therapy regularly. Currently getting phlebotomies for his hemochromatosis. Denies any orthopnea, PND, leg edema. Denies any bleeding issues or neurologic events. No exertional chest pain. No lightheadedness, syncope. [facility] Medical History Elevated ferritin Cardiomyopathy Atrial flutter Persistent atrial fibrillation Myalgia Morbid obesity Localized swelling of both lower legs Arthralgia Diverticulitis large intestine w/o perforation or abscess w/o bleeding HTN (hypertension) Polyarthralgia Hemochromatosis Surgical History History of shoulder surgery History of resection of terminal ileum Family History Father Substance use disorder Mother Breast cancer Substance use disorder Brother Substance use disorder Social History Household Members: Spouse Housing: House Are you a primary long term acute care registered nurse to a significant other at home: No Do you presently have visiting nurse or other home services: No Alcohol intake: former Patient Tobacco Use Status: Never used Tobacco e-Cigarette/Vaping Use: Never Used Second Hand Smoke Exposure: No Advance Directives Date on File: 06/04/23 service: No Current occupational status: employed Current occupation: Works in [employer] Current occupational exposures/hazards: Yes Cognitive needs: No Hearing needs: No Vision needs: No Review of Systems Const Denies chills, Denies fatigue, Denies fever(s), Denies frequent falls, Denies weakness, Denies weight gain and Denies weight loss ENT Denies dizziness Card Denies chest pain, Denies leg edema, Denies lightheadedness, Denies palpitations, Denies dyspnea, Denies dyspnea on exertion, Denies orthopnea and Denies other (loss of consciousness) Resp Denies cough, Denies dyspnea and Denies dyspnea on exertion GI Denies hematochezia and Denies change in stool character Musc Denies abnormal gait, Denies muscle weakness, Denies numbness, Denies radiating pain into limb and Denies tingling Neuro Denies abnormal gait, Denies dizziness, Denies frequent falls, Denies numbness, Denies tingling and Denies weakness Endo Denies fatigue and Denies palpitations Physical Exam Vital Signs: Last Vital Signs Pulse 96 02/23/25 15:20 BP 120/76 02/23/25 15:20 BMI result Body Mass Index 47.3 Const General: cooperative, healthy appearing, comfortable and no acute distress Orientation/consciousness: patient oriented x3 Neck Neck: Yes normal visual inspection and Yes no JVD Resp Effort & Inspection: normal respiratory effort Auscultation: clear to auscultation bilaterally, no rales, no rhonchi and no wheezes Cardio Rhythm: abnormal rhythm irregularly irregular Heart sounds: S1 normal heart sound present, S2 normal heart sound present, no murmurs and no rubs Neuro General: patient oriented x3 Extrem General: Yes normal to inspection, No no pedal edema and No calf tenderness Psych Appearance: grossly normal Mental Status: mental status grossly normal Speech and movement: Normal speech and movement present Office Procedures EKG Details: EKG shows atrial fibrillation 96 beats per minute [id number], Complete Assessment & Plan Assessment & Plan (1) Atrial fibrillation: Comment: New diagnosis of atrial fibrillation 05/20/2023 at PCP office Code(s): I48.91 - Unspecified atrial fibrillation Category: Medical Plan: Recurrent atrial fibrillation this elderly gentleman with morbid obesity and prior cardiomyopathy the persistent atrial fibrillation with normalized LV ejection fraction with maintaining rhythm. He has no significantly worsening symptoms although mild shortness of breath can not be ruled out. He has underlying hemochromatosis which along with a structural abnormality cause by it as well as left atrial enlargement possible underlying sleep apnea he has likelihood for recurrent atrial fibrillation. Multaq is at this point time in his effective therapy. Discussed with him about the same. Will switch to amiodarone loading at 400 mg b.i.d. for 2 weeks followed by 200 mg daily. Will obtain baseline chest x-ray and blood work. Discussed with him the need for rhythm management given his age. He understands agrees. If he achieves normal sinus rhythm will then pursue further consultation for ablation therapy to come off shelter amiodarone therapy. Once sinus rhythm was established will obtain a cardiac MRI to evaluate for hemochromatosis related cardiac structural changes as well as an echocardiogram to assess cardiac function structure. Will also suggest sleep study to evaluate for obstructive sleep apnea that might impact therapy for atrial fibrillation. Aggressive weight loss program is recommended. Continue aggressive blood pressure control. Continue full oral anticoagulation with the apixaban. Management was discussed in details. Follow up in the clinic in 6 weeks time after Holter monitor, sooner PRN. Thank you for allowing me to partake in his care Orders: Orders RT home sleep study Today I48.91 - Unspecified atrial fibrillation Cardioversion 2 Weeks I48.19 - Other persistent atrial fibrillation, I48.91 - Unspecified atrial fibrillation MR cardiac morph fnct w/wo con 4 Weeks E83.119 - Hemochromatosis, unspecified CA echo transthoracic complete 4 Weeks I48.91 - Unspecified atrial fibrillation ECG 3 day holter monitor 4 Weeks I48.91 - Unspecified atrial fibrillation Complete Blood Count no Diff Today I48.91 - Unspecified atrial fibrillation Basic Metabolic Panel Today I48.91 - Unspecified atrial fibrillation TSH reflex Free T4 Today I48.91 - Unspecified atrial fibrillation Liver Panel Today I48.91 - Unspecified atrial fibrillation XR chest 2V Today I48.91 - Unspecified atrial fibrillation Medications: New amiodarone 400 mg PO BID 30 tabs 1RF amiodarone Start after 2 weeks of loading with 400 mg b.i.d. 200 mg PO DAILY 30 tabs 4RF Discontinued dronedarone (Multaq) Discontinued Reason: Doctor's Order 400 mg PO BID 180 tabs 3RF Coding Level of Care Code Est Pt Level 4 (01376) Complex EM visit Add On G2211 Diagnoses Atrial fibrillation I48.91 CPT Codes EKG - CPT: 84905-Vmebrdorxvtfiydio, Complete ([id number])
--- OUTSIDE RECORDS SUMMARY | 2025-02-23 20:21 | XMS_ITS | Patient Health Record ---
Author Organization [facility] Address [address] [place] [phone] Care Team Providers Care Ice Handler Name Role Phone EVELIN OLIVEIRA Primary Care Provider Manny Shaw Jr Unavailable [phone] Reason For Referral No Information Medications [...] Problem Status W/U Status Risk Notes Problem Hdz's esophagus ([id number]) Hdz's esophagus without dysplasia (K22.70) Active confirmed Encounters Encounter Location Date Provider Diagnosis [facility] [address] [phone] 11/09/2024 Manny Bae Jr Plan Of Treatment Future Test Test Name Order Date UPPER GI ENDOSCOPY 08/08/2011 UPPER GI ENDOSCOPY 02/17/2015 UPPER GI ENDOSCOPY 06/18/2019 Insurance Providers Payer Name Payer Address Payer Phone Subscriber Number Group Number Insured Name Patient Relationship to Insured Coverage Start Date Coverage End Date [facility] [address] [place] [address] [id number] KEN MARTINEZ Self - patient is the insured Medical (General) History Medical History History ICD Code diverticulitis hypertension rosacea Hdz's esophagus colon polyps/diverticulitis, colonoscopies done through Dr. Ayala,, last colonoscopy 2013 Surgical History Surgery Date(Month/Year) shoulder surgery colonoscopy, 2005 (hyperplastic polyp) bowel resection 2016 cataract
== END 2025-02-23 16:04 | disposition home or self-care (01) ==
LOC: HO.HCS 15:09
PROVIDERS: PCP Nurse Practitioner Family; Visit Provider Internal Medicine Cardiovascular Disease
DX: I48.91 Unspecified atrial fibrillation (principal)
CPT/HCPCS: 93010; 99214

== ENCOUNTER → 2025-02-23 16:11 | Outpatient (BNV) | payer BC, OTHER, SELFPAY | PROVIDERS: PCP Nurse Practitioner Family; Visit Provider Radiology Diagnostic Radiology | DX: I48.91 Unspecified atrial fibrillation (principal) | CPT/HCPCS: 71046 ==

== ENCOUNTER → 2025-03-10 11:20 | Day surgery (SDC) | payer BC, SELFPAY ==
--- OUTSIDE RECORDS SUMMARY | 2024-11-09 05:00 | XMS_ITS ---
Author Organization [facility] Address [address] [place] [address] Care Team Providers Care Manufacturing Planner Name Role Phone EVELIN OLIVEIRA Primary Care Provider Jocelin Bae Jr, Manny Unavailable [phone] REASON FOR VISIT Patient presents today for a recall colon / egd Encounters Encounter Location Date Provider Diagnosis [facility] [address] [place] [phone] 11/09/2024 Manny Bae Jr Plan Of Treatment No Information Progress Notes * KEN MARTINEZDOB: [birth year] (65 yo M)Acc No.[id number]:11/09/2024 Progress Notes Patient: KEN ALCALA Provider: Daren Bae MD :1960 A ge:64 Y S ex:Male Date:11/09/2024 Address:[address] [place], [place] [phone] Pcp:EVELIN OLIVEIRA Subjective: * Chief Complaints: * [...] 11/09/2024 Generated for Printi ng/Faxing/eTransmitting on: 1 09:51 AM EDT
--- OUTSIDE RECORDS SUMMARY | 2025-02-26 09:51 | XMS_ITS | Patient Health Record ---
Author Organization [facility] Address [address] [place] [phone] Care Team Providers Care Skin Installer Name Role Phone EVELIN OLIVEIRA Primary Care Provider Manny Shaw Jr Unavailable [phone] Reason For Referral No Information Medications Medication [...] Problem Status W/U Status Risk Notes Problem Information temporarily unavailable Hdz's esophagus without dysplasia (K22.70) Active confirmed Encounters Encounter Location Date Provider Diagnosis [facility] [address] [place] [phone] 11/09/2024 Manny Bae Jr Plan Of Treatment Future Test Test Name Order Date UPPER GI ENDOSCOPY 08/08/2011 UPPER GI ENDOSCOPY 02/17/2015 UPPER GI ENDOSCOPY 06/18/2019 Insurance Providers Payer Name Payer Address Payer Phone Subscriber Number Group Number Insured Name Patient Relationship to Insured Coverage Start Date Coverage End Date [facility] [address] [place] [address] [id number] KEN MARTINEZ Self - patient is the insured Medical (General) History Medical History History ICD Code diverticulitis hypertension rosacea Hdz's esophagus colon polyps/diverticulitis, colonoscopies done through Dr. Ayala,, last colonoscopy 2013 Surgical History Surgery Date(Month/Year) shoulder surgery colonoscopy, 2004 (hyperplastic polyp) bowel resection 2016 cataract
[2025-03-08 13:40] VITALS: BMI 47.3
--- NOTE | 2025-03-08 14:34 | P.CONAN_ITS ---
HPI - Anesthesia Eval Consult details Narrative: 65 yr old male for cardioversion BMI 47 Hemochromatosis: follows with [facility] heme/onc, last visit 08/2024, Ferritin level has come down to about 600 NG/mL. He is being set up for therapeutic phlebotomy once every 6-8 weeks Recurrent atrial fibrillation, prior cardiomyopathy: on amiodorone, eliquis; scheduled to have cardiac MRI at [facility] Anesthesia Pre-Procedure Meds Is the patient on any of the following meds?: GLP1/DPP4 PMFSH Active Problems Active Problems: All Active Problems (Updated 03/08/25 @ 13:37 by Amy Carl, RN) Asthma (Acute) Atrial fibrillation (Acute) Atrial tachycardia (Acute) Encounter for routine adult physical exam with abnormal findings (Acute) New onset a-fib (Acute) Wheezing (Acute) Leukocytosis (Acute) Diabetes (Acute) B12 deficiency (Acute) SOB (shortness of breath) on exertion (Acute) Screening PSA (prostate specific antigen) (Acute) Elevated PSA (Acute) Physical exam (Acute) Elevated CPK (Acute) Anemia (Acute) Hemochromatosis (Chronic) Elevated ferritin (Acute) Cardiomyopathy (Acute) Persistent atrial fibrillation (Acute) Myalgia (Acute) Morbid obesity (Acute) Past Medical History Medical History (Updated 03/08/25 @ 13:37 by Amy Carl, CHRISTY) History of cardioversion Elevated ferritin Cardiomyopathy Atrial flutter Persistent atrial fibrillation Myalgia Morbid obesity Localized swelling of both lower legs Arthralgia Diverticulitis large intestine w/o perforation or abscess w/o bleeding HTN (hypertension) Polyarthralgia Hemochromatosis Family History Family History Father Substance use disorder Mother Breast cancer Substance use disorder Brother Substance use disorder Family history of problems with anesthesia: Yes Surgical History Surgical History History of shoulder surgery History of resection of terminal ileum History of Problems with Anesthesia: Yes Social History Social History Household Members: Spouse Housing: House Are you a primary health care facilities inspector to a significant other at home: No Do you presently have visiting nurse or other home services: No Alcohol intake: former Patient Tobacco Use Status: Never used Tobacco e-Cigarette/Vaping Use: Never Used Second Hand Smoke Exposure: No Advance Directives Date on File: 06/04/23 service: No Current occupational status: employed Current occupation: Works in [employer] [place] Current occupational exposures/hazards: Yes Cognitive needs: No Hearing needs: No Vision needs: No Meds Allergies Allergy/AdvReac Type Severity Reaction Status Date / Time No Known Allergies Allergy Verified 11/05/24 09:34 Home Medications ?Medication ?Instructions ?Recorded ?Confirmed ?Last Taken ?Type magnesium oxide 400 mg (241.3 mg 400 mg PO BID 0 03/08/25 06/04/23 History magnesium) tablet sildenafil 100 mg tablet (Viagra) 100 mg PO DAILY PRN Sexual Activity 02/06/20 03/08/25 06/04/23 History cyanocobalamin (vitamin B-12) 500 500 mcg PO DAILY 07/2403/08/25 06/04/23 History mcg tablet Exam Height,Weight and Vital Signs: Height 5 ft 8 in Weight 141.067 kg Pertinent Lab Results Pertinent Lab Results: Laboratory Tests 02/23/25 16:10 WBC 10.8 RBC 4.28 L Hgb 13.4 L Hct 40.4 L Plt Count 258 Sodium 139 Potassium 4.3 Chloride 107 Carbon Dioxide 25 BUN 13 Creatinine 0.95 Narrative Narrative: EKG 02/23/25 Atrial fib, rate 96 ECHO 12/2023 Conclusions: - Normal LV ejection fraction 55-60% Assessment and Plan Final Anesthetic Review Family History of Problems with Anesthesia: Yes History of Problems with Anesthesia: Yes
--- NOTE | 2025-03-10 11:10 | MHC.SHP ---
Pre-Procedural Eval Section A - 24 Hr Update-Section A only Date of Service: 03/10/25 The patient is an INPATIENT: No Changes since office visit: Yes Patient answered all questions; No Cold of Flu in the past 2 weeks, No New Medical Problems and No Changes in Medication The patient has been examined within 24 hours of the surgical procedure. The History & Physical has been completed within 30 days and I have reviewed it.: Yes Section B - Complete if H&P > 30 days Chief Complaint: afib, Allergies: Allergies Allergy/AdvReac Type Severity Reaction Status Date / Time No Known Allergies Allergy Verified 11/05/24 09:34 Plan I have reviewed the history and physical and performed a pertinent physical examination on my patient. No changes have occurred unless specified. Time Spent With Patient Time: Total time managing care of this patient today ____ minutes.
--- NOTE | 2025-03-10 11:41 | ECG_ITS ---
Test Reason : PREOP Blood Pressure : */* mmHG Vent. Rate : 60 BPM Atrial Rate : 60 BPM P-R Int : 188 ms QRS Dur : 96 ms QT Int : 440 ms P-R-T Axes : 5 -12 14 degrees QTcB Int : 440 ms Normal sinus rhythm Possible Anterior infarct (cited on or before 05-Jun-2023) Abnormal ECG When compared with ECG of 30-Aug-2023 12:31, Premature supraventricular complexes are no longer Present Referred By: Cora Zafar Electronically Signed By: Esvin Jones
[2025-03-10 11:46] VITALS: BP 161/74; PULSE 67; RESP 17; TEMP 36.9; O2SAT 98
--- NOTE | 2025-03-10 11:47 | PC.NURSE ---
Patient placed on monitor, appears to be in NSR rate 60's. Stat EKG ordered, cardiology notified and will come to do the EKG.
[2025-03-10 11:48] VITALS: BMI 47.2
--- NOTE | 2025-03-10 12:01 | PC.NURSE ---
Dr. Hart sent image of EKG. Patient noted to be in NSR. Procedure cx by Dr. Hart. Per Dr. Hart patient to continue his 200mg amiodarone and apixiban and follow up with Dr. Hart's office. Patient agreeable to plan.
== END ==
LOC: HO.SSS 11:22
PROVIDERS: PCP Nurse Practitioner Family; Visit Provider Internal Medicine Cardiovascular Disease
DX: I48.19 Other persistent atrial fibrillation (principal); Z53.8 Procedure and treatment not carried out for other reasons; Z79.01 Long term (current) use of anticoagulants
CPT/HCPCS: 93005

== ENCOUNTER → 2025-03-10 11:41 | Outpatient (BNV) | payer BC, SELFPAY | PROVIDERS: PCP Nurse Practitioner Family; Visit Provider Internal Medicine Cardiovascular Disease | DX: R94.31 Abnormal electrocardiogram [ECG] [EKG] (principal); Z01.810 Encounter for preprocedural cardiovascular examination | CPT/HCPCS: 93010 ==

== ENCOUNTER 2025-03-11 15:27 | Outpatient (REF) | payer BC, SELFPAY ==
--- OUTSIDE RECORDS SUMMARY | 2024-11-09 04:00 | XMS_ITS ---
Author Organization [facility] Address [address] [place] [phone] Care Team Providers Care Machine Sneller Name Role Phone EVELIN OLIVEIRA Primary Care Provider Jocelin Bae Jr, Manny Unavailable REASON FOR VISIT Patient presents today for a recall colon / egd Encounters Encounter Location Date Provider Diagnosis [facility] [address] [place] [phone] 11/09/2024 Manny Bae Jr Plan Of Treatment No Information Progress Notes * KEN MARTINEZDOB: [birth year] (65 yo M)Acc No.[id number]:11/09/2024 Progress Notes Patient: KEN ALCALA Provider: Daren Bae MD :1960 A ge:64 Y S ex:Male Date:11/09/2024 Address:[address] [place], [place] [phone] Pcp:EVELIN OLIVEIRA Subjective: * Chief Complaints: * 1 . Patient presents today for a recall colon / egd. * Medical History: Objective: * Vitals: Assessment: Plan: * Treatment: * * The named appointment provid er may or may not be the originator of this progress note, and it is not deemed complete until electronically signed by the appointment provider. Sign off status: Pending * Provider: Daren Bae MD Date: 0 11/09/2024 Generated for Printi ng/Faxing/eTransmitting on: 05/11/2024 06:22 PM EST
--- OUTSIDE RECORDS SUMMARY | 2025-03-11 18:23 | XMS_ITS | Patient Health Record ---
Author Organization [facility] Address [address] [place] [phone] Care Team Providers Care Foam Fabricator Name Role Phone EVELIN OLIVEIRA Primary Care [...] W/U Status Risk Notes Problem Hdz's esophagus ([id number]) Hdz's esophagus without dysplasia (K22.70) Active confirmed Encounters Encounter Location Date Provider Diagnosis [facility] [address] [place] [phone] 11/09/2024 Manny Bae Jr Plan Of Treatment Future Test Test Name Order Date UPPER GI ENDOSCOPY 08/08/2011 UPPER GI ENDOSCOPY 02/17/2015 UPPER GI ENDOSCOPY 06/18/2019 Insurance Providers Payer Name Payer Address Payer Phone Subscriber Number Group Number Insured Name Patient Relationship to Insured Coverage Start Date Coverage End Date [facility] [address] [place] [address] [phone] [id number] KEN MARTINEZ Self - patient is the insured Medical (General) History Medical History History ICD Code diverticulitis hypertension rosacea Hdz's esophagus colon polyps/diverticulitis, colonoscopies done through Dr. Ayala,, last colonoscopy 2013 Surgical History Surgery Date(Month/Year) shoulder surgery colonoscopy, 2005 (hyperplastic polyp) bowel resection 2016 cataract
== END 2025-03-11 15:28 | disposition home or self-care (01) ==
LOC: HO.BBR 15:27
PROVIDERS: PCP Nurse Practitioner Family; Visit Provider Internal Medicine
DX: Z13.89 Encounter for screening for other disorder (principal)

== ENCOUNTER → 2025-03-24 13:55 | Outpatient (REF) | payer BC, SELFPAY ==
--- OUTSIDE RECORDS SUMMARY | 2024-11-09 04:00 | XMS_ITS ---
Author Organization [facility] Address [address] [place] [address] Care Team Providers Care Center Customer Service Associate Name Role Phone EVELIN OLIVEIRA Primary Care Provider Manny Shaw Jr Unavailable [phone] REASON FOR VISIT Patient presents today for a recall colon / egd Encounters Encounter Location Date Provider Diagnosis [facility] [address] [place] [phone] 11/09/2024 Manny Bae Jr Plan Of Treatment No Information Progress Notes * KEN MARTINEZDOB: [birth year] (65 yo M)Acc No.[id number]:11/09/2024 Progress Notes Patient: KEN ALCALA Provider: Daren Bae MD :1960 A ge:64 Y S ex:Male Date:11/09/2024 Address:[address] [place], [place] [phone] Pcp:EVELIN OLIVEIRA Subjective: * Chief Complaints: * P atient presents today for a recall colon / egd * The named appointment provid er may or may not be the originator of this progress note, and it is not deemed complete until electronically signed by the appointment provider. Sign off status: Pending * Provider: Daren Bae MD Date: 0 11/09/2024 Generated for Keshawni ng/Farupinderg/eTransmitting on: 05/25/2024 02:04 AM EST
--- NOTE | 2025-03-24 13:58 | HM_ITS ---
* Total monitoring time 14 hours. * Underlying rhythm is sinus with an average rate of 65/Min. * Rare supraventricular ectopy. * Rare ventricular ectopy. * Patient markers associated with sinus rhythm and supraventricular ectopy. * No diary events. MTDD
--- NOTE | 2025-03-24 13:58 | CA_ITS ---
Transthoracic Echocardiogram Amended Patient (Last, First, Middle): Alvarez Ochoa F Gender: Male Date of : 1960 Age: 65 Procedure Date: 03/24/2025 Procedure Type: Transthoracic Echocardiogram Location: OP Height: 172.72 cm Weight: 140.62 kg BSA: 2.46 m2 Heart Rate: bpm BP: 142 / 72 mmHg Correction Warden: TO Referring MD: Fredi Hart MD Symptoms: I48.91 - Unspecified atrial fibrillation Study Quality: Fair/Contrast ECG Rhythm: Sinus Conclusions: - The left ventricular systolic function is low normal. The calculated ejection fraction is 54% by biplane method. - There is moderate septal and moderate basal asymmetric hypertrophy. - No obvious valvular pathology seen on this study. Findings Procedure Information Contrast agent, definity, is being given per protocol without apparent complications. Left Ventricle Normal left ventricular cavity size. There is mildly increased left ventricular wall thickness. The left ventricular systolic function is low normal. The calculated ejection fraction is 54% by biplane method. There is no evidence of regional wall motion abnormalities. Diastolic function is normal for age. There is moderate septal and moderate basal asymmetric hypertrophy. Right Ventricle The right ventricle was not well visualized. There is normal right ventricular systolic function. Atria Both atria are normal in size. Aortic Valve There is a normal trileaflet aortic valve. There is mild calcification of the aortic valve. There is no aortic valve stenosis. There is no aortic valve regurgitation. Mitral Valve The mitral valve appears normal. There is no mitral valve regurgitation. There is no mitral valve stenosis. Pulmonic Valve The pulmonic valve is likely normal. Tricuspid Valve There is trace tricuspid valve regurgitation. There is no evidence of pulmonary hypertension. Great Vessels Top normal ascending aortic size at 3.8 cm. Venous The inferior vena cava is normal in size and collapses greater than 50% with inspiration. Pericardium/Pleural There is no evidence of pericardial effusion. Prior Study Comparison No significant change compared to prior study dated: 12/13/2023. Recommendations, Care & Conclusions No obvious valvular pathology seen on this study. Measurements 2D Linear Measurements IVSd: 1.42 0.6-0.9/0.6-1.0 cm LVIDd: 5.24 3.9-5.3/4.2-5.9 cm LVIDd Index: 2.13 2.4-3.2/2.2-3.1 cm/m2 LVIDs: 3.75 2.0-3.6 cm LVPWd: 1.27 0.7-1.1 cm LA Diam: 4.40 2.7-3.8/3.0-4.0 cm LAIDs Index: 1.79 1.5-2.3 cm/m2 LV Mass: 368.99 67-162/88-224 g LV Mass Index: 150.00 43-95/49-115 g/m2 LVOT Diam: 2.10 3.0+(-)1.3 cm 2D Volumes LA Vol: 33.30 2D Systolic Function EF 4C: 52.00 >55% EF 2C: 52.60 >55% EF BiP: 54.00 >55% Mitral Valve MV Pk E: 0.57 MV PK A: 0.70 MV Decel Time: 223.00 E/A: 0.80 E'Lateral: 9.36 E'Medial: 5.77 E/E' Med: 9.90 E/E' Lat: 6.10 PHT: 65.00 MVA PHT: 3.38 Decel [place]oux: 2.57 Aortic Valve AoV Pk Yousuf: 1.46 AoV Mn Yousuf: 0.87 AoV VTI: 0.27 AoV Pk Grad: 9.00 Aov Mn Grad: 4.00 MAXX Cont.VTI: 3.13 LVOT LVOT Pk Yousuf: 1.33 LVOT Mn Yousuf: 0.83 LVOT VTI: 0.25 LVOT Pk Grad: 7.00 LVOT Mn Grad: 3.00 LVOT Diam: 2.10 LVOT Area: 3.46 Diastolic Function MV Pk E: 0.57 MV Pk A: 0.70 E/A: 0.80 E'Medial: 5.77 E/E' Med: 9.90 E' Laterial: 9.36 E/E' Lat: 6.10 Right Ventricle TVS' Yousuf: 12.30 Tricuspid Valve TR Pk Yousuf: 2.38 TR Pk Grad: 23.00 RA Press: 8.00 RVSP: 31.00 Great Vessels Aorta Sinus of Valsalva: 3.62 2.0-3.5 cm Ao Asc: 3.80 2.1-3.4 cm Updated in Other Vendor System with Status of Final Hubert Wilkerson MD electronically signed on 03/25/2025 11:16:23 AM with status of Final
--- OUTSIDE RECORDS SUMMARY | 2025-03-25 02:04 | XMS_ITS | Patient Health Record ---
Author Organization [facility] Address [address] [place] [phone] Care Team Providers Care Optometric Coordinator Name Role Phone JOSUECelina EVELIN Primary Care Provider Manny Shaw Jr Unavailable Reason For Referral No Information Medications Medication SIG (Take, Route, Frequency, Duration) Notes Start Date End Date Status Omeprazole 40 MG Capsule Delayed Release 1 tablet 30 minutes before morning meal Orally Once a day Active Metoprolol Tartrate 25 MG Tablet 1/2 tablet Orally Twice a day Active Immunizations Vaccine Route Administration Date Status Comme nts Influenza Unknown 02/03/2019 Administered Social History Social History Additional Details Category Social Info Options Details Miscellaneous: Marital status: 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 Tobacco use is negative, alc ohol use is described as moderate. Tobacco use is negative, alc ohol use is described as moderate. Problems Problem Type SNOMED Code ICD Code Onset Dates Problem Status W/U Status Risk Notes Problem Hdz's esophagus (366485449) Hdz's esophagus without dysplasia (K22.70) Active confirmed Encounters Encounter Location Date Provider Diagnosis [facility] [address] [place] [phone] 11/09/2024 Manny Bae Jr Plan Of Treatment Future Test Test Name Order Date UPPER GI ENDOSCOPY 08/08/2011 UPPER GI ENDOSCOPY 02/17/2015 UPPER GI ENDOSCOPY 06/18/2019 Insurance Providers Payer Name Payer Address Payer Phone Subscriber Number Group Number Insured Name Patient Relationship to Insured Coverage Start Date Coverage End Date BLUE CROSS BLUE [facility] [address] [place] [address] [id number] KEN MARTINEZ Self - patient is the insured Medical (General) History Medical History History ICD Code diverticulitis hypertension rosacea Hdz's esophagus colon polyps/diverticulitis, colonoscopies done through Dr. Ayala,, last colonoscopy 2013 Surgical History Surgery Date(Month/Year) shoulder surgery colonoscopy, 2004 (hyperplastic polyp) bowel resection 2016 cataract
== END ==
LOC: HO.CARD 13:55
PROVIDERS: PCP Nurse Practitioner Family; Visit Provider Internal Medicine Cardiovascular Disease
DX: I48.91 Unspecified atrial fibrillation (principal)
CPT/HCPCS: 93242; 93306; Q9957

== ENCOUNTER → 2025-03-24 13:58 | Outpatient (BNV) | payer BC, SELFPAY | PROVIDERS: PCP Nurse Practitioner Family; Visit Provider Internal Medicine | DX: I51.7 Cardiomegaly (principal) | CPT/HCPCS: 93306 ==

== ENCOUNTER → 2025-04-14 14:50 | Outpatient (REF) | payer BC, SELFPAY ==
--- OUTSIDE RECORDS SUMMARY | 2024-11-09 04:00 | XMS_ITS ---
Author Organization [facility] Address [address] [place] [address] Care Team Providers Care Die Casting Machine Operator Name Role Phone EVELIN OLIVEIRA Primary Care Provider Manny Shaw Jr Unavailable [phone] REASON FOR VISIT Patient presents today for a recall colon / egd Encounters Encounter Location Date Provider Diagnosis [facility] [address] [place] [phone] 11/09/2024 Manny Bae Jr Plan Of Treatment No Information Progress Notes * KEN MARTINEZDOB: [birth year] (65 yo M)Acc No.[id number]:11/09/2024 Progress Notes Patient: KEN ALCALA Provider: Daren Bae MD :1960 A ge:64 Y S ex:Male Date:11/09/2024 Address:[address] [place], [place] [phone] Pcp:EVELIN OLIVEIRA Subjective: * Chief Complaints: * [...] 0 11/09/2024 Generated for Printi ng/Faxing/eTransmitting on: 1 06/15/2024 11:21 PM EST
--- OUTSIDE RECORDS SUMMARY | 2025-04-14 23:21 | XMS_ITS | Patient Health Record ---
Author Organization 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 Tobacco use is negative, alc ohol use is described as moderate. Tobacco use is negative, alc ohol use is described as moderate. Problems Problem Type SNOMED Code ICD Code Onset Dates Problem Status W/U Status Risk Notes Problem Hdz's esophagus (685879230) Hdz's esophagus without dysplasia (K22.70) Active confirmed Encounters Encounter Location Date Provider Diagnosis [facility] [address] [place] [phone] 11/09/2024 Manny Bae Jr Plan Of Treatment Future Test Test Name Order Date UPPER GI ENDOSCOPY 08/08/2011 UPPER GI ENDOSCOPY 02/17/2015 UPPER GI ENDOSCOPY 06/18/2019 Insurance Providers Payer Name Payer Address Payer Phone Subscriber Number Group Number Insured Name Patient Relationship to Insured Coverage Start Date Coverage End Date BLUE CROSS BLUE [facility] [address] [place] [address] [id number] KEN MARTINEZ Self - patient is the insured Medical (General) History Medical History History ICD Code diverticulitis hypertension rosacea Hdz's esophagus colon polyps/diverticulitis, colonoscopies done through Dr. Ayala,, last colonoscopy 2013 Surgical History Surgery Date(Month/Year) shoulder surgery colonoscopy, 2004 (hyperplastic polyp) bowel resection 2016 cataract
== END ==
LOC: HO.SL 14:50
PROVIDERS: PCP Nurse Practitioner Family; Visit Provider Internal Medicine Cardiovascular Disease
DX: I48.91 Unspecified atrial fibrillation (principal)
CPT/HCPCS: 95806

== ENCOUNTER → 2025-04-14 15:05 | Outpatient (BNV) | payer BC, SELFPAY | PROVIDERS: PCP Nurse Practitioner Family; Visit Provider Psychiatry & Neurology Neurology | DX: G47.33 Obstructive sleep apnea (adult) (pediatric) (principal) | CPT/HCPCS: 95806 ==

== ENCOUNTER 2025-04-19 06:04 | Outpatient (REF) | payer BC, SELFPAY ==
--- OUTSIDE RECORDS SUMMARY | 2024-11-09 04:00 | XMS_ITS ---
Author Organization [facility] Address [address] [place] [phone] Care Team Providers Care Cloud Physicist Name Role Phone EVELIN OLIVEIRA Primary Care Provider Manny Shaw Jr Unavailable REASON FOR VISIT Patient presents today for a recall colon / egd Encounters Encounter Location Date Provider Diagnosis [facility] [address] [place] [phone] 11/09/2024 Manny Bae Jr Plan Of Treatment No Information Progress Notes * KEN MARTINEZDOB: [birth year] (65 yo M)Acc No.[id number]:11/09/2024 Progress Notes Patient: KEN ALCALA Provider: Daren Bae MD :1960 A ge:64 Y S ex:Male Date:11/09/2024 Address:[address] [place], [place] [phone] Pcp:EVELIN OLIVEIRA Subjective: * Chief Complaints: * P atient presents today for a recall colon / egd * The named appointment provid er may or may not be the originator of this progress note, and it is not deemed complete until electronically signed by the appointment provider. Sign off status: Pending * Provider: Daren Bae MD Date: 0 11/09/2024 Generated for Keshawni ng/Faxing/eTransmitting on: 1 06/20/2024 06:06 AM EST
--- OUTSIDE RECORDS SUMMARY | 2025-04-19 06:06 | XMS_ITS | Patient Health Record ---
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 Tobacco use is negative, alc ohol use is described as moderate. Tobacco use is negative, alc ohol use is described as moderate. Problems Problem Type SNOMED Code ICD Code Onset Dates Problem Status W/U Status Risk Notes Problem Hdz's esophagus (023022507) Hdz's esophagus without dysplasia (K22.70) Active confirmed Encounters Encounter Location Date Provider Diagnosis [facility] [address] [place] [phone] 11/09/2024 Manny Bae Jr Plan Of Treatment Future Test Test Name Order Date UPPER GI ENDOSCOPY 08/08/2011 UPPER GI ENDOSCOPY 02/17/2015 UPPER GI ENDOSCOPY 06/18/2019 Insurance Providers Payer Name Payer Address Payer Phone Subscriber Number Group Number Insured Name Patient Relationship to Insured Coverage Start Date Coverage End Date BLUE CROSS BLUE [facility] [address] [place] [address] [id number] KEN MARTINEZ Self - patient is the insured Medical (General) History Medical History History ICD Code diverticulitis hypertension rosacea Hdz's esophagus colon polyps/diverticulitis, colonoscopies done through Dr. Ayala,, last colonoscopy 2013 Surgical History Surgery Date(Month/Year) shoulder surgery colonoscopy, 2004 (hyperplastic polyp) bowel resection 2016 cataract
[2025-04-19 06:18] LABS: MANUAL DIFF FLAG NO
[2025-04-19 07:54] LABS: Hematocrit 41.6 % (42.0-52.0); Hemoglobin 13.7 g/dl (14.0-18.0); Imm Gran Abs Auto 0.03 X10*3/uL (0.00-0.03); Imm Gran Pct Auto 0.3 % (0.0-0.4); Lymphocytes Absolute Auto 3.2 X10*3/uL (1.2-4.9); Mean Corpuscular HGB Conc 32.9 g/dl (31.0-36.0); Mean Corpuscular Hemoglobin 32.4 pg (27.0-33.0); Mean Corpuscular Volume 98.3 fL (80.0-98.0); NRBC Abs Auto 0.000 X10*3/uL (0.0-0.012); NRBC Pct Auto 0.0 /100WBC (0.0-0.2); Platelet Count 238 X10*3/uL (160-400); Red Blood Count 4.23 X10*6/uL (4.60-5.80); White Blood Count 9.0 X10*3/uL (4.8-10.8)
[2025-04-19 08:29] LABS: Alanine Aminotransferase 30 U/L (0-40); Albumin Level 4.4 g/dL (3.5-5.0); Alkaline Phosphatase 57 U/L (39-117); Anion Gap 12 (12-20); Aspartate Amino Transferase 29 U/L (5-37); Blood Urea Nitrogen 19 mg/dL (9-16); Calcium 9.6 mg/dL (8.4-10.2); Carbon Dioxide 25 mmol/L (22-29); Chloride 106 mmol/L (96-108); Cholesterol 138 mg/dL (<200); Estimated Glomerular Filt Rate > 60; HDL Cholesterol 65 mg/dL (>40); Potassium 4.2 mmol/L (3.3-5.1); Sodium 139 mmol/L (135-145); Total Protein 6.9 g/dL (6.5-8.0); Triglycerides 52 mg/dL (<150)
[2025-04-19 08:53] LABS: Appearance Urine Clear; Glucose Urine UA Negative (Negative); PH 6.0 (5.0-9.0); Specific Gravity - Urine >= 1.030 (1.005-1.025)
== END 2025-04-19 06:05 | disposition home or self-care (01) ==
LOC: HO.LAB 06:04
PROVIDERS: PCP Nurse Practitioner Family; Visit Provider Nurse Practitioner Family
DX: E11.9 Type 2 diabetes mellitus without complications (principal); E53.8 Deficiency of other specified B group vitamins; R06.2 Wheezing
CPT/HCPCS: 36415; 80053; 80061; 81003; 82785; 84443; 85025

== ENCOUNTER 2025-05-05 08:01 | Outpatient (AMB) | payer BC, OTHER, SELFPAY ==
--- OUTSIDE RECORDS SUMMARY | 2024-11-09 04:00 | XMS_ITS ---
Author Organization [facility] Address [address] [place] [phone] Care Team Providers Care Help Desk Internship Name Role Phone EVELIN OLIVEIRA Primary Care Provider Jocelin Bae Jr, Manny Unavailable [phone] REASON FOR VISIT Patient presents today for a recall colon / egd Encounters Encounter Location Date Provider Diagnosis [facility] [address] [facility] [address] [place] [phone] 11/09/2024 Manny Bae Jr Plan Of Treatment Next Appt Details Provider Name:Manny conte Jr, 07/26/2025 01:55:00 PM, [address] [place] [address], [address], [place], [address], Progress Notes * KEN MARTINEZDOB: [birth year] (65 yo M)Acc No.[id number]:11/09/2024 Progress Notes Patient: KEN ALCALA Provider: Daren Bae MD :1960 A ge:64 Y S ex:Male Date:11/09/2024 Address:[address] [place], [place] [phone] Pcp:EVELIN OLIVEIRA Subjective: * Chief Complaints: * P atient presents today for a recall colon / egd * The named appointment provid er may or may not be the originator of this progress note, and it is not deemed complete until electronically signed by the appointment provider. Sign off status: Pending * Provider: Daren Bae MD Date: 0 11/09/2024 Generated for Hanane raymond/Priscila/[place] on: 1 08:04 AM EST
--- OUTSIDE RECORDS SUMMARY | 2025-05-05 08:04 | XMS_ITS | Patient Health Record ---
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 Tobacco use is negative, alc ohol use is described as moderate. Tobacco use is negative, alc ohol use is described as moderate. Problems Problem Type SNOMED Code ICD Code Onset Dates Problem Status W/U Status Risk Notes Problem Hdz's esophagus (279322372) Hdz's esophagus without dysplasia (K22.70) Active confirmed Encounters Encounter Location Date Provider Diagnosis [facility] [address] [place] [address] 11/09/2024 Manny Bae Jr Plan Of Treatment Future Test Test Name Order Date UPPER GI ENDOSCOPY 08/08/2011 UPPER GI ENDOSCOPY 02/17/2015 UPPER GI ENDOSCOPY 06/18/2019 Next Appt Details Provider Name:Manny conte Jr, 07/26/2025 01:55:00 PM, [address], [address], [place], [phone], Insurance Providers Payer Name Payer Address Payer Phone Subscriber Number Group Number Insured Name Patient Relationship to Insured Coverage Start Date Coverage End Date [facility] [address] [place] [address] [id number] MICHELLEKEN Self - patient is the insured Medical (General) History Medical History History ICD Code diverticulitis hypertension rosacea Hdz's esophagus colon polyps/diverticulitis, colonoscopies done through Dr. Ayala,, last colonoscopy 2013 Surgical History Surgery Date(Month/Year) shoulder surgery colonoscopy, 2004 (hyperplastic polyp) bowel resection 2016 cataract
[2025-05-05 08:06] VITALS: BP 140/72; PULSE 60; O2SAT 97; BMI 47.0
--- NOTE | 2025-05-05 08:06 | A.OFFPC_ITS ---
Vital Signs 05/05/25 08:06 05/05/25 08:31 Height 5 ft 8 in Weight 309 lb BMI 47.0 BP 140/72 H 128/80 Blood Pressure Location Lt brachial Lt brachial Position Sitting Pulse 60 Pulse Oximetry (%) 97 Oxygen Delivery Method Room Air Intake Visit Reasons: 6m follow up Human Performance Consultant Required: No Accompanied by: Self / Same As Patient Allergies No Known Allergies Allergy (Verified 05/05/25 08:22) Medication List - Last Reconciled 05/05/25 by DELROY RodriguezP- amiodarone 200 mg PO DAILY apixaban (Eliquis) 5 mg PO BID 90 days atorvastatin 20 mg PO BEDTIME cyanocobalamin (vitamin B-12) 500 mcg PO DAILY FreeStyle Lite Meter (blood-glucose meter) As directed NS FreeStyle Lite Strips (blood sugar diagnostic) Test blood sugar twice a day NS lancets (FreeStyle Lancets) Test blood sugar twice a day losartan 25 mg PO DAILY magnesium oxide 400 mg PO BID metoprolol succinate ER 25 mg PO DAILY omeprazole 40 mg PO DAILY semaglutide (Ozempic) 2 mg (0.75 mL) subcut QWEEK sildenafil (Viagra) 100 mg PO DAILY PRN Tobacco use date assessed: 05/05/25 Fall risk assessment: No Falls in past year Last assessed Fall Risk: 05/05/25 Dental Screening Dental Screen Date: 05/05/25 Did you have a dental visit in the last 12 months?: Yes Did you have a dental problem in the last 6 months where you did not have access to dental care?: No Was dental information given to patient?: Patient has dentist HPI 6m follow up HPI Details Chief Complaint The patient presents for a follow-up visit for management of diabetes and hypertension. History of Present Illness The patient is a 65 year old male presenting for a follow-up for diabetes and hypertension. Regarding his hypertension, he reports that his blood pressure at home is typically in the 120s to low 130s over 70s. For his diabetes, his eye exam is up to date, and his most recent A1c was 5.9. He is currently on a GLP-1 agonist and experiences neuropathy in his toes. His other medical history includes morbid obesity, atrial fibrillation, and cardiomyopathy, for which he follows up with cardiology. Recent labs showed an LDL of 63. The patient reports doing quite well overall. Does report that he has a family history his father had Parkinson's disease. He does report he notices a tremor mostly at rest bilateral upper extremities. Or when he is really anxious. He denies any drooling he does have he report that his gait is a little more shuffling I will refer him to a neurologist for fur ther eval treatment Social History Health Maintenance - The patient's diabetic eye exam is up to date. - He follows up with cardiology for his atrial fibrillation and cardiomyopathy. - Recent A1c was 5.9. - Recent LDL was 63. Review of Systems - Neurological: Reports neuropathy in hi s toes. - General: Reports feeling quite well. -denies any increased sob, cp, ulloa, blurr ed vision, n/v, Physical Exam General: Cooperative, healthy appearing, comfortable, no acute distress and well developed, morbidly obese Orientation: Patient oriented x3 Limitations: No limitations Head: Normal to inspection Ears: Hearing grossly normal bilaterally Nose: Normal external nose present Face and sinus: Normal facial exam Eyes: Appearance normal, both eyes and all related structures, eye exam up to date Neck: Normal visual inspection and Yes full ROM Respiratory: Normal respiratory effort and able to speak in complete sentences. Clear to auscultation bilaterally, lungs fairly clear Cardiovascular: Regular rate and rhythm. Normal S1 and S2, follows up with cardiology for AFib cardiomyopathy GI: Normal to inspection. Soft to palpation and nontender Skin: intact feet otherwise no open sores or lesions Neuro: Patient oriented x3, neuropathy in toes, difficulty feeling monofilament in toes. bilat hand tremors noted Extremities: Normal to inspection, +1 pitting edema in lower extremities Results - Labs: Recent labs showed an A1c of 5.9 and an LDL of 63. - Tests and Diagnostics: Eye exam is up to date. Plan Patient was informed and verbally consented to the use of an ambient scribe for clinic note documentation during this visit. 1. diabetes: stable 2. htn stable (at home as well on current med regime) 3. tremor referring to neuro Discussion Notes Patient Instructions [facility] Medical History (Updated 05/05/25 @ 08:54 by Yair Angel, [facility]) History of cardioversion Elevated ferritin Cardiomyopathy Atrial flutter Persistent atrial fibrillation Myalgia Morbid obesity Localized swelling of both lower legs Arthralgia Diverticulitis large intestine w/o perforation or abscess w/o bleeding HTN (hypertension) Polyarthralgia Hemochromatosis Surgical History History of shoulder surgery History of resection of terminal ileum Family History Father Substance use disorder Mother Breast cancer Substance use disorder Brother Substance use disorder Social History Household Members: Spouse Housing: House Are you a primary care information associate to a significant other at home: No Do you presently have visiting nurse or other home services: No Alcohol intake: former Patient Tobacco Use Status: Never used Tobacco e-Cigarette/Vaping Use: Never Used Second Hand Smoke Exposure: No Advance Directives Date on File: 06/04/23 service: No Current occupational status: employed Current occupation: Works in [employer] Current occupational exposures/hazards: Yes Cognitive needs: No Hearing needs: No Vision needs: No Questionnaire Thrive Questionnaire Date Thrive assessed: 07/06/24 I am a: Patient What is your living situation today?: I have a steady place to live Within the past 12 months, did the food you bought not last and you didn't have the money to get more?: Never true Within the past 12 months, did you worry whether your food would run out before you got money to buy more?: Never true Do you have trouble paying for medicines?: No Do you have trouble getting transportation to medical appointments?: No Do you have trouble paying your heating and electricity bill?: No Do you have trouble taking care of your child, family member or friend?: No Do you have trouble with day-to-day activities such as bathing, preparing meals, shopping, managing finances, etc.?: No Are you currently unemployed and looking for a job?: No Are you interested in more education?: No Currently or been in a relationship where the following occur: No concerns reported THRIVE Score: 0 ZEHRA-7 AMB Questionnaire ZEHRA-7 Date ZEHRA - 7 assessed: 11/05/24 Source: Developed by Drs. Brennon Rizvi, Cristina Albrecht, Qasim Westfall and colleagues, with an educational yolanda from [employer]. Physical exam (Primary Care) Vital Signs: Last Vital Signs Pulse 60 05/05/25 08:06 BP 128/80 05/05/25 08:31 Pulse Ox 97 05/05/25 08:06 Oxygen Delivery Method Room Air 05/05/25 08:06 BMI result Body Mass Index 47.0 Tobacco/Smoking Status: Tobacco use Status Tobacco use date assessed 05/05/25 05/05/25 08:09 Patient Tobacco Use Status Never used Tobacco 05/05/25 08:09 e-Cigarette/Vaping Use Never Used 05/05/25 08:09 Thrive Assessment: Date of Thrive Assessment Date Thrive assessed 07/06/24 05/05/25 08:09 Currently or been in a relationship where the following occur: No concerns reported Office Procedures Diabetic Foot Exam G9226 - Diabetic Foot Exam (unable to feel vibration (tuning fork 128), or monofilament, to toes bilat. intact feet) Results AMB Hemoglobin A1c AMB Hemoglobin A1c 5.9 % Last Edit by Masha Parker MA on 05/05/25 08:26 Results Reviewed Results Reviewed: Laboratory Last Values Hgb A1c (Clinic) 5.9 % (4.0-6.0) 05/05/25 08:25 Coding Level of Care Code Est Pt Level 4 (05680) Diagnoses Atrial fibrillation I48.91 Morbid obesity E66.01 HTN (hypertension) I10 Tremor of both hands R25.1 Family history of Parkinson's disease Z82.0 Diabetes mellitus with polyneuropathy E11.42 CPT Codes Diabetic Foot Exam - CPT: G9226 - Diabetic Foot Exam ([id number]) Assessment & Plan Assessment & Plan (1) Atrial fibrillation: Comment: New diagnosis of atrial fibrillation 05/20/2023 at PCP office Code(s): I48.91 - Unspecified atrial fibrillation Category: Medical (2) Morbid obesity: Code(s): E66.01 - Morbid (severe) obesity due to excess calories Category: Medical (3) HTN (hypertension): Code(s): I10 - Essential (primary) hypertension Category: Medical (4) Tremor of both hands: Code(s): R25.1 - Tremor, unspecified Category: Medical (5) Family history of Parkinson's disease: Code(s): Z82.0 - Family history of epilepsy and other diseases of the nervous system Category: Medical (6) Diabetes mellitus with polyneuropathy: Code(s): E11.42 - Type 2 diabetes mellitus with diabetic polyneuropathy Category: Medical Plan . Orders: Orders AMB Hemoglobin A1c Today E11.9 - Type 2 diabetes mellitus without complications Referrals Neurology Referral R25.1 - Tremor, unspecified, Z82.0 - Family history of epilepsy and other diseases of the nervous system
[2025-05-05 08:31] VITALS: BP 128/80
== END 2025-05-05 08:43 | disposition home or self-care (01) ==
LOC: HO.HMCC 08:02
PROVIDERS: PCP Nurse Practitioner Family; Visit Provider Nurse Practitioner Family
DX: I48.91 Unspecified atrial fibrillation (principal); E66.01 Morbid (severe) obesity due to excess calories; I10 Essential (primary) hypertension; R25.1 Tremor, unspecified; Z82.0 Family history of epilepsy and other diseases of the nervous system; E11.42 Type 2 diabetes mellitus with diabetic polyneuropathy

== ENCOUNTER → 2025-05-05 08:01 | Outpatient (BNVA) | payer BC, SELFPAY | PROVIDERS: PCP Nurse Practitioner Family; Visit Provider Nurse Practitioner Family | DX: E11.42 Type 2 diabetes mellitus with diabetic polyneuropathy (principal); I10 Essential (primary) hypertension; E66.01 Morbid (severe) obesity due to excess calories; I48.91 Unspecified atrial fibrillation; R25.1 Tremor, unspecified; Z82.0 Family history of epilepsy and other diseases of the nervous system | CPT/HCPCS: 83036 ==